=== PATIENT | female | born 1995 | race Caucasian/White ===

== ENCOUNTER 2019-11-12 20:45 | Emergency (ER) | payer SELFPAY ==
[2019-11-12 20:50] VITALS: BP 133/99; PULSE 102; RESP 18; TEMP 37.1; O2SAT 100
--- NOTE | 2019-11-12 21:53 | ED.HA ---
HPI - Headache General Chief Complaint: Headache Stated Complaint: headache, body aches, fatigue Time Seen by Provider: 11/12/19 21:33 History of Present Illness HPI Narrative: Headache and diffuse body aches since yesterday. Started after an intense workout. She tried ibuprofen, which improved the headache, but did not help with the aches. She was not able to sleep overnight due to discomfort. She reports decreased urine output, light in color. Related Data Allergies Allergy/AdvReac Type Severity Reaction Status Date / Time Sulfa (Sulfonamide Allergy Unknown HIVES Verified 10/11/18 11:05 Antibiotics) Review of Systems Review of Systems: All systems reviewed & are unremarkable except as noted in HPI and below Constitutional: Constitutional: Denies chills and Denies fever(s) ENT: Reports dizziness Cardiovascular: Cardiovascular: Denies chest pain Respiratory: Respiratory: Denies dyspnea Gastrointestinal: Gastrointestinal: Denies abdominal pain, Denies diarrhea and Denies vomiting Genitourinary: Genitourinary: Denies hematuria, Denies nocturia and Denies dysuria Musculoskeletal: Musculoskeletal: Reports myalgias Neurologic: Denies numbness PMFSH Past Medical History Medical History Endometriosis Strep pharyngitis UTI (urinary tract infection) Wrist fracture Surgical History Surgical History No history of previous surgery Social History Social History Smoking status: Current every day smoker Exam Const: General: healthy appearing, no acute distress and alert Orientation/consciousness: patient oriented x3 HENMT: Mouth: Yes dry mucous membranes Neck: Neck: normal visual inspection and no lymphadenopathy Resp: Effort & Inspection: normal respiratory effort Auscultation: clear to auscultation bilaterally, no rales, no rhonchi and no wheezes Cardio: Jugular venous distension: no JVD Rate: regular rate Rhythm: regular rhythm Heart sounds: no murmurs GI: Inspection: non-distended GI Palp: Yes Soft to palpation and No Tenderness to palpation present (GI) Skin: General skin exam: normal color Neuro: General: patient oriented x3, moves all extremities, no focal motor deficits and CN's II-XI intact bilaterally Speech: normal speech Gait exam (Neuro): Normal gait present Extrem: General: no edema Psych: Appearance: well kempt Affect: normal affect Course Vital Signs Vital signs: Vital Signs Temperature 37.1 C 11/12/19 20:50 Pulse Rate 102 H 11/12/19 20:50 Respiratory Rate 18 11/12/19 20:50 Blood Pressure 133/99 H 11/12/19 20:50 Pulse Oximetry 100 11/12/19 20:50 Temperature 37.0 C 11/12/19 23:33 Pulse Rate 84 11/12/19 23:33 Respiratory Rate 16 11/12/19 23:33 Blood Pressure 104/76 11/12/19 23:33 Pulse Oximetry 100 11/12/19 23:33 MDM - Headache MDM Narrative Medical decision making narrative: dehydration, rhabdomyolysis, viral illness labs may hint at mild dehydration. No rhabdo. Feeling moderately improved with treatment. Can't ruleout mild/early viral illness. Medical Records Attestation: I reviewed the patient's medical records. Lab Data Attestation: I reviewed the patient's lab results. Result diagrams: 11/12/19 22:02 11/12/19 22:01 Labs: Lab Results 11/12/19 11/12/19 Range/Units 22:01 22:02 WBC 9.0 (4.5-10.0) K/mm3 RBC 5.07 (4.2-5.4) M/mm3 Hgb 15.2 H (12.0-15.0) g/dL Hct 45.6 (37.0-47.0) % MCV 89.9 (80-100) fl MCH 30.0 (26-34) pg MCHC 33.3 (32-36) g/dl RDW 12.9 (11.5-14.5) % Plt Count 300 (150-375) k/mm3 MPV 11.0 H (7.4-10.4) fl Immature Gran % (Auto) 0.2 (0-0.5) % Neut % (Auto) 56.4 (45.5-73.1) % Lymph % (Auto) 31.8 (18.3-44.2) % Lander % (Auto) 6.8 (2.6-8.5) % Eos % (Auto) 4.
[2019-11-12] MEDS: SODIUM CHLORIDE 0.9% IV 1,000 ML 999 ML IV CONT (22:04)
[2019-11-12 22:08] LABS: Basophils Absolute Auto 0.1 K/mm3 (0.0-0.1); Basophils Percent Auto 0.7 % (0.2-1.2); Eosinophils Absolute Auto 0.4 K/mm3 (0-0.3); Eosinophils Percent Auto 4.1 % (0-4.4); Hematocrit 45.6 % (37.0-47.0); Hemoglobin 15.2 g/dL (12.0-15.0); Immature Granulocyte Absolute 0.02 K/mm3 (0.00-0.031); Immature Granulocyte Percent A 0.2 % (0-0.5); Lymphocytes Absolute Auto 2.86 K/mm3 (0.9-3.2); Lymphocytes Percent Auto 31.8 % (18.3-44.2); Mean Corpuscular HGB Conc 33.3 g/dl (32-36); Mean Corpuscular Volume 89.9 fl (80-100); Monocytes Absolute Auto 0.6 K/mm3 (0.1-0.6); Monocytes Percent Auto 6.8 % (2.6-8.5); Neutrophils Absolute Auto 5.1 K/mm3 (1.3-6.7); Neutrophils Percent Auto 56.4 % (45.5-73.1); Platelet Count Result 300 k/mm3 (150-375); Red Blood Count 5.07 M/mm3 (4.2-5.4); Red Cell Distribution Width 12.9 % (11.5-14.5)
[2019-11-12 22:23] LABS: Blood Urea Nitrogen 6 mg/dL (7-17); Calcium 9.3 mg/dL (8.4-10.2); Carbon Dioxide 28 mmol/L (22-30); Chloride 103 mmol/L (98-107); Creatine Kinase 87 U/L (30-135); Estimated Glomerular Filt Rate > 60; Glucose 98 mg/dL (65-105); Potassium 3.6 mmol/L (3.4-5.0); Sodium 138 mmol/L (137-145)
[2019-11-12 23:10] VITALS: BP 101/65
[2019-11-12] MEDS: KETOROLAC 30 MG/ML VIAL (*BKC) IV PUSH (23:10)
[2019-11-12 23:11] VITALS: BP 104/79; BP 105/73; PULSE 82; PULSE 88; RESP 16
[2019-11-12 23:33] VITALS: BP 104/76; PULSE 84; RESP 16; TEMP 37; O2SAT 100
== END 2019-11-12 23:34 | disposition home or self-care (01) ==
PROVIDERS: Emergency Provider Emergency Medicine
DX: R51 Headache (principal); M79.10 Myalgia, unspecified site; N80.9 Endometriosis, unspecified; Z87.440 Personal history of urinary (tract) infections
CPT/HCPCS: 36415; 80048; 82550; 85025; 96361; 96365; 96375; 99284; J0131; J1885; J7030

== ENCOUNTER 2019-12-27 10:23 | Emergency (ER) | payer SELFPAY ==
[2019-12-27 10:34] VITALS: BP 116/69; PULSE 87; RESP 16; TEMP 36.9; O2SAT 99
--- NOTE | 2019-12-27 10:45 | ED.URI ---
HPI - URI/Sore Throat General Chief Complaint: Upper Respiratory Infection Stated Complaint: Sore Throat Time Seen by Provider: 12/27/19 10:45 Source: patient and RN notes reviewed Mode of arrival: ambulatory Limitations: no limitations History of Present Illness HPI Narrative: 24-year-old female presents with concern for sore throat. Reports symptoms started yesterday. She denies other symptoms such as headache, nausea, fever, body aches, chills, sweats, nasal congestion, rhinorrhea. Denies any intervention for her pain. MD elicited complaint: sore throat Related Data Allergies Allergy/AdvReac Type Severity Reaction Status Date / Time Sulfa (Sulfonamide Allergy Unknown HIVES Verified 12/27/19 10:40 Antibiotics) Review of Systems Review of Systems: Narrative: CONSTITUTIONAL: Denies malaise, chills, sweats, or fever. EYES: Denies visual changes, redness, or discharge. ENT: Denies rhinorrhea, congestion, sinus pain, otalgia. Reports sore throat. CARDIOVASCULAR: Denies chest pain, palpitations, or edema. RESPIRATORY: Denies cough or dyspnea. GASTROINTESTINAL: Denies abdominal pain, nausea, vomiting, diarrhea SKIN: Denies rash or itching. MUSCULOSKELETAL: Denies myalgia. NEUROLOGIC: Denies headache. All systems reviewed & are unremarkable except as noted in HPI and below PMFSH Social History Social History Smoking status: Current every day smoker Gender identity (if verbalized by the patient): Female Comments At time of signature, agree with nursing past medical, surgical, social and family history. There is no relevant family history pertinent to the presenting complaint Exam Narrative: Exam Narrative: GENERAL: Well-appearing, well-nourished, and in no acute distress. HEAD: Normocephalic EYES: PERRLA, conjunctivae clear ENT: Nares clear, turbinates pink, no discharge. Mucous membranes moist. TM pearly sanabria with sharp light reflex bilaterally; no tragal tenderness. Oropharynx slightly erythematous without lesions. Tonsils slightly enlarged and with white exudate on the right side, no drooling, no hoarseness, no trismus, uvula midline. NECK: Supple. No lymphadenopathy CHEST: Clear to auscultation, breath sounds equal. No wheezing, rhonchi, rales, or stridor. No respiratory distress, speaks in full sentences. HEART: Regular rate and rhythm. No murmur heard. SKIN: Warm, dry, no rash. NEURO: Alert and oriented x3. PSYCH: Normal mood and affect Course Course Emergency Course: Patient is aware of diagnosis, understands and agrees to treatment plan. Anticipatory guidance given. Patient agrees to follow-up as directed and is aware of reasons to seek care at the emergency department. Portions of this record may have been created with voice recognition software Vital Signs Vital signs: Vital Signs Temperature 98.4 F 12/27/19 10:34 Pulse Rate 87 12/27/19 10:34 Respiratory Rate 16 12/27/19 10:34 Blood Pressure 116/69 12/27/19 10:34 Pulse Oximetry 99 12/27/19 10:34 Temperature 98.4 F 12/27/19 10:34 Pulse Rate 87 12/27/19 10:34 Respiratory Rate 16 12/27/19 10:34 Blood Pressure 116/69 12/27/19 10:34 Pulse Oximetry 99 12/27/19 10:34 Reviewed. MDM - URI/Sore Throat MDM Narrative Medical decision making narrative: Differential diagnosis considered: Norman virus, strep pharyngitis, allergic rhinitis, upper respiratory tract infection, sinusitis, rhinosinusitis, nasopharyngitis. viral pharyngitis, otitis media, otitis externa, pneumonia, bronchitis, viral cough syndrome, viral syndrome, and influenza. Exam findings show no acute concerns or changes; patient is non-toxic appearing and is in no distress. Patient is appropriate for outpatient treatment and follow-up. Lab Data Attestation: I reviewed the patient's lab results. Labs: Strep Screen Presumptive Negative *(Reference Range: Negative)* Critical Ca
== END 2019-12-27 11:02 | disposition home or self-care (01) ==
PROVIDERS: Emergency Provider Nurse Practitioner
DX: J02.9 Acute pharyngitis, unspecified (principal); Z20.828 Contact with and (suspected) exposure to other viral communicable diseases; F17.200 Nicotine dependence, unspecified, uncomplicated
CPT/HCPCS: 87081; 87880; 99213; G0463

== ENCOUNTER 2020-02-16 18:24 | Emergency (ER) | payer SELFPAY ==
--- NOTE | ~2020-02-16 | XR_ITS ---
EXAMINATION: XR knee RT 3V EXAM DATE: 02/16/2020 18:51 INDICATION: No known injury, proximal posterior right knee pain, congenital patellar issue. TECHNIQUE: Right knee frontal, crosstable lateral, orthogonal oblique projections for interpretation . There is no prior study for comparison. FINDINGS: No evidence osteochondral defect or joint body in the right knee joint. No joint effusion . There are no acute fractures or dislocations identified. There is no subcutaneous gas. The soft t issue is unremarkable. There are no radiopaque foreign bodies. IMPRESSION: 1. Unremarkable right knee exam. Reviewed, dictated and finalized at location A.
[2020-02-16 18:33] VITALS: BP 122/81; PULSE 84; RESP 16; TEMP 37.4; O2SAT 99
--- NOTE | 2020-02-16 18:36 | ED.EXTPRO ---
HPI - Extremity Problem General Chief complaint: Extremity Injury, Lower Stated complaint: right knee painful/swollen Time Seen by Provider: 02/16/20 18:36 History of Present Illness HPI Narrative: Patient here with right knee pain and swelling. No deformity no edema patient states it hurts when she ambulates on her knee.patient has chronic knee problems no injury. patient has been using a brace for comfort. 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 Complaint: extremity pain and extremity swelling Related Data Home Medications Medication Instructions Recorded Confirmed No Home Medications 02/16/20 02/16/20 Allergies Allergy/AdvReac Type Severity Reaction Status Date / Time Sulfa (Sulfonamide Allergy Unknown HIVES Verified 12/27/19 10:40 Antibiotics) Review of Systems Review of Systems: Narrative: CONSTITUTIONAL: Denies fever, chills, or sweats. EYES: Denies visual changes, redness, or discharge. ENT: Denies rhinorrhea, congestion, sore throat, or otalgia. CARDIOVASCULAR: Denies chest pain, palpitations, or edema. RESPIRATORY: Denies cough or dyspnea. GASTROINTESTINAL: Denies abdominal pain, nausea, vomiting, or diarrhea. GENITOURINARY: Denies dysuria or hematuria. SKIN: Denies rash or itching. MUSCULOSKELETAL: Denies back pain, joint pain, or myalgia. NEUROLOGIC: Denies headache, numbness, or weakness. PSYCHIATRIC: Denies anxiety or depression. [facility] Past Medical History Medical History (Updated 02/16/20 @ 18:41 by MERRILL Ibarra) Endometriosis Strep pharyngitis UTI (urinary tract infection) Wrist fracture Surgical History Surgical History No history of previous surgery Social History Social History Smoking status: Current every day smoker Gender identity (if verbalized by the patient): Female Comments At time of signature, agree with nursing past medical, surgical, social and family history. There is no relevant family history pertinent to the presenting complaint Exam Narrative: Exam Narrative: GENERAL: Well-appearing, well-nourished, and in no acute distress. HEAD: Normocephalic, atraumatic. EYES: PERRLA and EOMI. ENT: Nares clear, no rhinorrhea or epistaxis. Mucous membranes moist. NECK: Supple. CHEST: Clear to auscultation. No respiratory distress. HEART: Regular rate and rhythm. No murmur heard. Normal peripheral pulses. ABDOMEN: Soft, nontender, nondistended, normal active bowel sounds. EXTREMITIES: Normal range of motion. No edema. SKIN INTACT. NO DEFORMITY. NORMAL ROM, HAS FULL EXTENSION AND FLEXION. COMPARTMENTS SOFT. NEGATIVE ANTERIOR, POSTERIOR DRAWER SIGNS ON TEST. NO CREPITUS. DP PULSE, NORMAL CAPILLARY REFILL MCMURRAYS, PAIN TO RIGHT MEDIAL AND DISTAL KNEE WITH KNEE FLEXION, INTERNAL AND EXTERNAL FOOT ROTATION.NO ERYTHEMA OR INCREASED WARMTH TO CALF. . SKIN: Warm, dry, no rash. NEURO: No focal deficits. Alert and oriented x3. [place] Coma Scale Eye Opening: Spontaneous 4 [place] Coma Scale Motor: Obeys Commands 6 Lopez Coma Scale Verbal: Oriented 5 [place] Coma Scale Total 15 Course Vital Signs Vital signs: Vital Signs Temperature 37.4 C 02/16/20 18:33 Pulse Rate 84 02/16/20 18:33 Respiratory Rate 16 02/16/20 18:33 Blood Pressure 122/81 02/16/20 18:33 Pulse Oximetry 99 02/16/20 18:33 Temperature 37.4 C 02/16/20 18:33 Pulse Rate 84 02/16/20 18:33 Respiratory Rate 16 02/16/20 18:33 Blood Pressure 122/81 02/16/20 18:33 Pulse Oximetry 99 02/16/20 18:33 DISCUSSED WITH PATIENT, X-RAY FINDINGS AND THAT X-RAYS WERE NEGATIVE FOR FRACTURE OR DISLOCATIONS. X-RAYS CANNOT RULE OUT TENDON, LIGAMENT, OR SOFT TISSUE STRUCTURE INJURIES AND IF SYMPTOMS PERSIST OR WORSEN, FURTHER OCTAVIANO
== END 2020-02-16 19:17 | disposition home or self-care (01) ==
PROVIDERS: Emergency Provider Nurse Practitioner Family
DX: S86.811A Strain of other muscle(s) and tendon(s) at lower leg level, right leg, initial encounter (principal); S83.91XA Sprain of unspecified site of right knee, initial encounter; X58.XXXA Exposure to other specified factors, initial encounter; N80.9 Endometriosis, unspecified; F17.200 Nicotine dependence, unspecified, uncomplicated
CPT/HCPCS: 73562; 99213; G0463

== ENCOUNTER 2020-10-18 15:35 | Emergency (ER) | payer OTHER, SELFPAY ==
[2020-10-18 15:43] VITALS: BP 118/70; PULSE 99; RESP 18; TEMP 37.2; O2SAT 100
--- NOTE | 2020-10-18 15:46 | ED.SKABFB ---
HPI - Skin/Abscess/Foreign Bdy General Chief complaint: Skin/Abscess/Foreign Body Stated complaint: Possible Boil on her Vagina Time Seen by Provider: 10/18/20 15:46 Source: patient Mode of arrival: ambulatory Limitations: no limitations History of Present Illness HPI narrative: patient presents with an abscess in her groin. patient states she shaves her labia area and noticed a tender hardened area one week ago. no drainage very tender to touch. patient states she shaves her carter area and thinks she may have cut herself causeing an abscess. MD complaint: abscess/boil Onset (ago): week(s) (one) Tetanus up to date: yes Severity: mild Related Data Home Medications Medication Instructions Recorded Confirmed sertraline 50 mg PO DAILY 10/18/20 10/18/20 trazodone 100 mg PO DAILY 10/18/20 10/18/20 Allergies Allergy/AdvReac Type Severity Reaction Status Date / Time Sulfa (Sulfonamide Allergy Unknown HIVES Verified 12/27/19 10:40 Antibiotics) Review of Systems Review of Systems: Narrative: CONSTITUTIONAL: Denies fever, chills, or sweats. EYES: Denies visual changes, redness, or discharge. ENT: Denies rhinorrhea, congestion, sore throat, or otalgia. CARDIOVASCULAR: Denies chest pain, palpitations, or edema. RESPIRATORY: Denies cough or dyspnea. GASTROINTESTINAL: Denies abdominal pain, nausea, vomiting, or diarrhea. GENITOURINARY: Denies dysuria or hematuria. SKIN: Denies rash or itching.tender area to left groin MUSCULOSKELETAL: Denies back pain, joint pain, or myalgia. NEUROLOGIC: Denies headache, numbness, or weakness. PSYCHIATRIC: Denies anxiety or depression. [facility] Past Medical History Medical History Endometriosis Strep pharyngitis UTI (urinary tract infection) Wrist fracture Surgical History Surgical History No history of previous surgery Social History Social History Smoking status: Current every day smoker Gender identity (if verbalized by the patient): Female Comments At time of signature, agree with nursing past medical, surgical, social and family history. There is no relevant family history pertinent to the presenting complaint Exam Narrative: Exam Narrative: GENERAL: Well-appearing, well-nourished, and in no acute distress. HEAD: Normocephalic, atraumatic. EYES: PERRLA and EOMI. ENT: Nares clear, no rhinorrhea or epistaxis. Mucous membranes moist. NECK: Supple. CHEST: Clear to auscultation. No respiratory distress. HEART: Regular rate and rhythm. No murmur heard. Normal peripheral pulses. ABDOMEN: Soft, nontender, nondistended, normal active bowel sounds. EXTREMITIES: Normal range of motion. No edema. SKIN: Warm, dry, no rash. NEURO: No focal deficits. Alert and oriented x3. [place] Coma Scale Eye Opening: Spontaneous 4 [place] Coma Scale Motor: Obeys Commands 6 [place] Coma Scale Verbal: Oriented 5 [place] Coma Scale Total 15 Skin: Other: 3cm by 3cm firm tender area to right groin/labia not fluctuant no induration no indication for I&D Course Vital Signs Vital signs: Vital Signs Temperature 37.2 C 10/18/20 15:43 Pulse Rate 99 10/18/20 15:43 Respiratory Rate 18 10/18/20 15:43 Blood Pressure 118/70 10/18/20 15:43 Pulse Oximetry 100 10/18/20 15:43 Temperature 37.2 C 10/18/20 15:43 Pulse Rate 99 10/18/20 15:43 Respiratory Rate 18 10/18/20 15:43 Blood Pressure 118/70 10/18/20 15:43 Pulse Oximetry 100 10/18/20 15:43 Critical dx considered and discussed with pt. Educated patient on red flag s/s and to go to ED if s/s occur. Discussed with pt when to return to [facility] or primary care provider. Pt gave verbal undertstanding, all questions were answered, and pt was agreeable to plan MDM - Skin/Abscess/Foreign Bdy Differential Diagnosis Differential diagnosis: Likely abscess o
== END 2020-10-18 16:06 | disposition home or self-care (01) ==
PROVIDERS: Emergency Provider Nurse Practitioner Family; PCP Nurse Practitioner Family
DX: L02.214 Cutaneous abscess of groin (principal); N80.9 Endometriosis, unspecified; F17.200 Nicotine dependence, unspecified, uncomplicated
CPT/HCPCS: 99213; G0463

== ENCOUNTER 2020-10-20 11:10 | Emergency (ER) | payer OTHER, SELFPAY ==
[2020-10-20 11:29] VITALS: BP 120/74; PULSE 100; RESP 18; TEMP 36.6; O2SAT 99
--- NOTE | 2020-10-20 11:53 | ED.SKABFB ---
HPI - Skin/Abscess/Foreign Bdy General Chief complaint: Skin/Abscess/Foreign Body Stated complaint: boil on vagina Time Seen by Provider: 10/20/20 11:46 Source: patient, RN notes reviewed and old records reviewed Mode of arrival: ambulatory Limitations: no limitations History of Present Illness HPI narrative: Patient presents today complaining of a labial abscess. [facility] where she was given a prescription for cephalexin and mupirocin ointment. The note states that the area was not ready to be lanced at that time, and patient was sent home. Patient states the area has grown quite a bit, now has a head. States now she is having difficulty walking or sitting due to severe pain. She has been taking Tylenol without relief and currently rates her pain 10/10. Denies history of abscesses, boils, staph infections. MD complaint: abscess/boil Related Data Home Medications Medication Instructions Recorded Confirmed sertraline 50 mg PO DAILY 10/18/20 10/20/20 trazodone 100 mg PO DAILY 10/18/20 10/20/20 Allergies Allergy/AdvReac Type Severity Reaction Status Date / Time Sulfa (Sulfonamide Allergy Unknown HIVES Verified 10/20/20 11:26 Antibiotics) Review of Systems Review of Systems: Narrative: CONSTITUTIONAL: Denies body aches, fever, chills, or sweats. EYES: Denies visual changes, redness, or discharge. ENT: Denies rhinorrhea, congestion, sore throat, or otalgia. CARDIOVASCULAR: Denies chest pain, palpitations, or edema. RESPIRATORY: Denies cough or dyspnea. GASTROINTESTINAL: Denies abdominal pain, nausea, vomiting, or diarrhea. GENITOURINARY: Denies dysuria or hematuria. SKIN: Denies rash, itching, or wounds. Left labial abscess MUSCULOSKELETAL: Denies back pain, joint pain, or myalgia. NEUROLOGIC: Denies headache, numbness, tingling, or weakness. PSYCH: Denies depression or anxiety. [facility] Past Medical History Medical History Endometriosis Strep pharyngitis UTI (urinary tract infection) Wrist fracture Surgical History Surgical History No history of previous surgery Social History Social History Smoking status: Current every day smoker Gender identity (if verbalized by the patient): Female Comments At time of signature, I have reviewed and agree with nursing past medical, surgical, social and family history unless otherwise noted. Please see nursing chart for further information. There is no relevant family history pertinent to the presenting complaint Exam Narrative: Exam Narrative: GENERAL: Well-appearing, well-nourished, and in no acute distress. HEAD: Normocephalic, atraumatic. EYES: EOMI. No redness or drainage. Conjunctivae normal. ENT: Mucous membranes pink and moist. NECK: Normal AROM. CHEST: No respiratory distress. : 4x3cm erythematous fluctuance abscess to the left inner labia. Tenderness to palpation. EXTREMITIES: Normal range of motion. No edema. SKIN: Warm, dry, no rash. Capillary refill normal. Normal skin turgor. NEURO: No focal deficits. Alert and oriented x3. Gait steady. PSYCH: Normal affect. No signs of depression or anxiety. Course Vital Signs Vital signs: Vital Signs Temperature 97.8 F 10/20/20 11:29 Pulse Rate 100 10/20/20 11:29 Respiratory Rate 18 10/20/20 11:29 Blood Pressure 120/74 10/20/20 11:29 Pulse Oximetry 99 10/20/20 11:29 Temperature 97.8 F 10/20/20 11:29 Pulse Rate 100 10/20/20 11:29 Respiratory Rate 18 10/20/20 11:29 Blood Pressure 120/74 10/20/20 11:29 Pulse Oximetry 99 10/20/20 11:29 Reviewed Procedures Abscess I/D bartholin's gland: Date of Incision: 10/20/20 Time of Incision: 11:57 Side (if applicable): left Local Anesthetic: lidocaine 2%
== END 2020-10-20 12:35 | disposition home or self-care (01) ==
PROVIDERS: Emergency Provider Nurse Practitioner
DX: N75.1 Abscess of Bartholin's gland (principal); N80.9 Endometriosis, unspecified; F17.200 Nicotine dependence, unspecified, uncomplicated
CPT/HCPCS: 56420; 99212; G0463

== ENCOUNTER 2021-03-02 10:12 | Emergency (ER) | payer OTHER, SELFPAY ==
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
[2021-03-02 10:25] VITALS: BP 117/97; PULSE 117; RESP 20; TEMP 36.6; O2SAT 98
== END 2021-03-02 11:15 | disposition home or self-care (01) ==
PROVIDERS: Emergency Provider Nurse Practitioner Family
DX: M25.552 Pain in left hip (principal); F17.200 Nicotine dependence, unspecified, uncomplicated; N80.9 Endometriosis, unspecified
CPT/HCPCS: 99213; G0463

== ENCOUNTER 2021-12-24 09:06 | Emergency (ER) | payer OTHER, SELFPAY ==
--- NOTE | ~2021-12-24 | US_ITS ---
EXAMINATION: US pelvic complete DATE: 12/24/2021 10:43 INDICATION: Abdominal pain. TECHNIQUE: Multiple transabdominal sonographic images of the pelvis were obtained. COMPARISON: CT abdomen and pelvis 09/15/2018 FINDINGS: The uterus measures 8.5 x 2.8 x 4.9 cm. There is no free fluid in the pelvis. The endometrial complex measures 13 mm in thickness. The right ovary measures 3.6 x 2.2 x 2.7 cm. The left ovary measures 4. 2 x 1.6 x 2.6 cm. There is normal vascular flow in the ovaries. IMPRESSION: 1. Normal pelvis. Reviewed, dictated and finalized at location A. IMPRESSION: 1. Normal pelvis.
[2021-12-24 09:08] VITALS: BP 116/74; PULSE 82; RESP 16; TEMP 37.2; O2SAT 100
--- NOTE | 2021-12-24 09:38 | ED.ABDPAIN ---
HPI - Abdominal Pain General Chief Complaint: Abdominal Pain Stated Complaint: with recent ectopic Time Seen by Provider: 12/24/21 09:15 History of Present Illness HPI narrative: 26-year-old female who is and a recent history of ectopic who presents to the emergency room for evaluation of right lower quadrant pain began yesterday. Patient denies any nausea vomiting diarrhea, denies any vaginal pain or dysuria. Patient states that her last menstrual period was approximately 8 weeks ago. Related Data Home Medications Medication Instructions Recorded Confirmed trazodone 50 mg tablet 100 mg PO DAILY 10/18/20 03/02/21 prazosin 1 mg capsule 1 mg PO HS 03/02/21 03/02/21 hydroxyzine pamoate 25 mg capsule 25 mg DAILY PRN Anxiety 12/24/21 venlafaxine 75 mg capsule,extended 75 mg PO DAILY 12/24/21 release 24 hr Allergies Allergy/AdvReac Type Severity Reaction Status Date / Time Sulfa (Sulfonamide Allergy Unknown HIVES Verified 10/20/20 11:26 Antibiotics) Review of Systems Review of Systems: CONSTITUTIONAL: Denies fever, chills, or sweats. EYES: Denies visual changes, redness, or discharge. ENT: Denies rhinorrhea, congestion, sore throat, or otalgia. CARDIOVASCULAR: Denies chest pain, palpitations, or edema. RESPIRATORY: Denies cough or dyspnea. GASTROINTESTINAL: Reports right lower quadrant pain GENITOURINARY: Denies dysuria or hematuria. SKIN: Denies rash or itching. MUSCULOSKELETAL: Denies back pain, joint pain, or myalgia. NEUROLOGIC: Denies headache, numbness, dizziness, or weakness. PSYCHIATRIC: Denies anxiety or depression. [facility] Past Medical History Medical History (Updated 12/24/21 @ 11:30 by Gerson Romeo APRN) Endometriosis Strep pharyngitis UTI (urinary tract infection) Wrist fracture Surgical History Surgical History No history of previous surgery Social History Social History Smoking status: Current every day smoker Gender identity (if verbalized by the patient): Female Exam Narrative: GENERAL: Well-appearing, well-nourished, no physical limitations, and in no acute distress. HEAD: Normocephalic, atraumatic. EYES: Conjunctivae normal, PERRLA and EOMI. CHEST: Clear to auscultation. No respiratory distress. No wheezes rales or rhonchi. No tenderness. HEART: Regular rate and rhythm. No murmur heard. Normal peripheral pulses. ABDOMEN: Soft, RLQ tenderness, nondistended, normal active bowel sounds. : BACK: No CVA tenderness EXTREMITIES: Normal range of motion. No edema. No clubbing or cyanosis SKIN: Warm, dry, no rash. No noted wounds NEURO: No focal deficits. Alert and oriented x3. MAEW. CN's II-XI intact bilaterally, normal gait PSYCH: Cooperative. Normal mood and affect. Course Vital Signs Vital signs: Vital Signs Temperature 37.2 C 12/24/21 09:08 Pulse Rate 82 12/24/21 09:08 Respiratory Rate 16 12/24/21 09:08 Blood Pressure 116/74 12/24/21 09:08 Pulse Oximetry 100 12/24/21 09:08 Oxygen Delivery Room Air 12/24/21 09:08 Temperature 37.2 C 12/24/21 09:08 Pulse Rate 82 12/24/21 09:08 Respiratory Rate 16 12/24/21 09:08 Blood Pressure 116/74 12/24/21 09:08 Pulse Oximetry 100 12/24/21 09:08 Oxygen Delivery Room Air 12/24/21 09:08 MDM - Abdominal Pain MDM Narrative Medical decision making narrative: 26-year-old female presented the emergency room with right lower quadrant pelvic/abdominal pain. Patient stated that she is 8 weeks . Beta-hCG shows a level 663, which is not consistent with 8 weeks . Pelvic ultrasound showed no pole. Discussed case with Dr. Calle, he recommends of follow-up beta hCG level in 2 days and to be seen in his office. Lab Data Result diagrams: 12/24/21 09:41 12/24/21 09:41 Labs: Lab Results 12/24/21
[2021-12-24 09:54] LABS: Basophils Absolute Auto 0.1 K/mm3 (0.0-0.1); Basophils Percent Auto 0.6 % (0.2-1.2); Eosinophils Absolute Auto 0.2 K/mm3 (0-0.3); Eosinophils Percent Auto 2.9 % (0-4.4); Hematocrit 37.8 % (37.0-47.0); Hemoglobin 12.3 g/dL (12.0-15.0); Immature Granulocyte Absolute 0.03 K/mm3 (0.00-0.031); Immature Granulocyte Percent A 0.4 % (0-0.5); Lymphocytes Absolute Auto 2.15 K/mm3 (0.9-3.2); Lymphocytes Percent Auto 26.3 % (18.3-44.2); Mean Corpuscular HGB Conc 32.5 g/dl (32-36); Mean Corpuscular Hemoglobin 27.2 pg (26-34); Mean Corpuscular Volume 83.4 fl (80-100); Mean Platelet Volume 10.6 fl (7.4-10.4); Monocytes Absolute Auto 0.7 K/mm3 (0.1-0.6); Neutrophils Absolute Auto 5.1 K/mm3 (1.3-6.7); Neutrophils Percent Auto 61.8 % (45.5-73.1); Platelet Count Result 320 k/mm3 (150-375); Red Blood Count 4.53 M/mm3 (4.2-5.4); Red Cell Distribution Width 16.2 % (11.5-14.5); White Blood Count 8.2 K/mm3 (4.5-10.0)
[2021-12-24 09:57] LABS: Appearance Urine Clear (Clear); Bilirubin Urine Negative (Negative); Blood Urine Negative (Negative); Color Urine Yellow (Yellow); Glucose Urine UA Negative (Negative); Ketones Urine Negative (Negative); Leukocyte Esterase Ur Trace LEU/UL (Negative); Nitrate Urine Negative (Negative); Protein Urine Negative (Negative); Specific Grav Ur 1.015 (1.001-1.035); Urobilinogen Urine 0.2 mg/dL (<2.0)
[2021-12-24 10:05] LABS: Alanine Aminotransferase 11 U/L (6-35); Albumin Level 4.1 g/dL (3.5-5.1); Alkaline Phosphatase 67 U/L (38-126); Anion Gap 9 mmol/L (8-16); Aspartate Amino Transferase 22 U/L (14-36); Bilirubin,Total 0.4 mg/dL (0.2-1.3); Blood Urea Nitrogen 8 mg/dL (7-17); Calcium 9.1 mg/dL (8.4-10.2); Carbon Dioxide 24 mmol/L (22-30); Chloride 104 mmol/L (98-107); Estimated CRCL calculation 86 ml/min; Estimated Glomerular Filt Rate > 60; Glucose 90 mg/dL (65-110); Lipase 41 U/L (23-300); Potassium 3.6 mmol/L (3.4-5.0); Sodium 137 mmol/L (137-145)
[2021-12-24 10:08] LABS: Bacteria Urine 2+ /hpf; RBC Urine 0-2 /hpf (0-2); Squamous Epithelial Cell Urine Moderate /hpf (Few)
[2021-12-24 10:09] LABS: Add Urine Microscopic? YES
[2021-12-24 10:21] LABS: Beta HCG Quantitative 663.85 mIU/ML
[2021-12-24 11:56] VITALS: BP 104/66; PULSE 80; RESP 16; O2SAT 98
== END 2021-12-24 11:59 | disposition home or self-care (01) ==
PROVIDERS: Emergency Provider Nurse Practitioner Family
DX: N39.0 Urinary tract infection, site not specified (principal); R10.9 Unspecified abdominal pain
CPT/HCPCS: 36415; 76856; 80053; 81001; 83690; 84702; 85025; 99284

== ENCOUNTER 2021-12-26 09:19 | Outpatient (CLI) | payer OTHER, SELFPAY | END 2021-12-26 09:20 | disposition home or self-care (01) | PROVIDERS: Visit Provider Obstetrics & Gynecology | DX: O20.0 Threatened abortion (principal); Z3A.00 Weeks of gestation of pregnancy not specified | CPT/HCPCS: 36415; 84702 ==

== ENCOUNTER 2022-01-06 18:44 | Emergency (ER) | payer OTHER, SELFPAY ==
[2022-01-06] VITALS (12 sets, daily range): BP systolic 104–123; BP diastolic 69–76; PULSE 70–89; RESP 15–17; TEMP 36.8; O2SAT 98–100
--- NOTE | ~2022-01-06 | US_ITS ---
EXAMINATION: US OB <=14 wk fetus w TV DATE: 01/06/2022 21:39 INDICATION: Right ovarian cyst. Assess for ovarian torsion during first trimester . TECHNIQUE: Real-time pelvic ultrasound utilizing both a transvaginal and transabdominal probe was pe rformed. The interpreting radiologist was not present for the study. COMPARISON: None. FINDINGS: The uterus measures 9.2 x 4.6 x 3.6 cm. There is an intrauterine gestational sac. A yolk sac and fet al pole are identified. The crown rump length measures 2-3 mm, which correlates with an estimated ges tational age of 5 weeks and 6 days. heart motion is identified measuring 136 beats per minute ( bpm) by M-mode Doppler. The right ovary measures 2.3 x 2.4 x 2.2 cm. 1.7 cm anechoic cyst/follicle in the right ovary. Vascul ar flow with arterial waveforms in the right ovary with color Doppler. The left ovary is not visualiz ed. There is no free fluid in the pelvis. IMPRESSION: 1. Single living fetus with heart rate of 136 bpm. 2. Gestational age by ultrasound of 5 weeks 6 day(s) +/- 4 day(s) with ultrasound estimated date of delivery ([facility]) of 09/02/2022. 3. 1.7 cm anechoic cyst/follicle in the otherwise normal right ovary with arterial waveforms identifi ed in the right ovary with color Doppler. Reviewed, dictated and finalized at location A. IMPRESSION: 1. Single living fetus with heart rate of 136 bpm. 2. Gestational age by ultrasound of 5 weeks 6 day(s) +/- 4 day(s) with ultraso und estimated date of delivery ([facility]) of 09/02/2022. 3. 1.7 cm anechoic cyst/follicle in the otherwise normal right ovary with arter ial waveforms identified in the right ovary with color Doppler.
--- NOTE | 2022-01-06 20:24 | ED.GENADULT ---
HPI - General Adult General Chief complaint: Abdominal Pain Stated complaint: 6 weeks , right side pain, no bleeding Time Seen by Provider: 01/06/22 20:12 History of Present Illness HPI narrative: 26-year-old female that is approximately 6 weeks presented to the emergency department for evaluation of worsening right-sided abdominal pain. Patient is G2, P0. Patient does have a prior history of ectopic . Patient also has a history of endometriosis and was recently diagnosed with a right ovarian cyst. Patient states that 2 weeks ago she was diagnosed with a cyst and since then her pain had improved. Patient states she had acutely worsening right-sided abdominal pain. Patient denies any associated vaginal bleeding. Related Data Home Medications Medication Instructions Recorded Confirmed trazodone 50 mg tablet 100 mg PO DAILY 10/18/20 03/02/21 prazosin 1 mg capsule 1 mg PO HS 03/02/21 03/02/21 hydroxyzine pamoate 25 mg capsule 25 mg DAILY PRN Anxiety 12/24/21 venlafaxine 75 mg capsule,extended 75 mg PO DAILY 12/24/21 release 24 hr Allergies Allergy/AdvReac Type Severity Reaction Status Date / Time Sulfa (Sulfonamide Allergy Unknown HIVES Verified 01/06/22 20:26 Antibiotics) Review of Systems Review of Systems: CONSTITUTIONAL: Denies fever, chills, or sweats. EYES: Denies visual changes, redness, or discharge. ENT: Denies rhinorrhea, congestion, sore throat, or otalgia. CARDIOVASCULAR: Denies chest pain, palpitations, or edema. RESPIRATORY: Denies cough or dyspnea. GASTROINTESTINAL: See HPI GENITOURINARY: Denies dysuria or hematuria. SKIN: Denies rash or itching. MUSCULOSKELETAL: Denies back pain, joint pain, or myalgia. NEUROLOGIC: Denies headache, numbness, or weakness. [facility] Past Medical History Medical History (Updated 01/07/22 @ 00:00 by Background Dafrnacaon) Endometriosis Strep pharyngitis UTI (urinary tract infection) Wrist fracture Surgical History Surgical History No history of previous surgery Social History Social History Smoking status: Current every day smoker Gender identity (if verbalized by the patient): Female Exam Narrative: APPEARANCE: Well appearing, no pain, no distress, well-nourished. HEAD: normocephalic, atraumatic. EYES: PERRLA/EOMI, conjunctivae clear. NOSE: Normal no drainage THROAT: Pharynx clear, no exudate. NECK: Supple. No adenopathy, no masses. RESPIRATORY: Airway patent, respirations nonlabored. Clear to auscultation bilaterally, no rales, rhonchi, wheezing. CARDIOVASCULAR: Regular rate and rhythm without murmurs rubs or gallops. ABDOMINAL: Soft, nontender, nondistended, normal bowel sounds. Tenderness and right upper and right lower quadrant. Patient has pain in this region but states that pain is not significantly altered with palpation. MUSCULOSKELETAL: Moves all extremities. Strength/ROM intact, No edema, No calf tenderness. NEURO: Alert. Cranial nerves II through XII intact. Grossly intact SKIN: Warm, dry. Normal Color Course Course Emergency Course: Ultrasound did show a right-sided ovarian cyst and confirmed the intrauterine Patient was updated on the results for ultrasound. Patient did have a minor leukocytosis of 13.8 but is afebrile. CMP is within normal limits. Patient did have cloudy urine with some white blood cells. Urine culture is pending. Patient does have follow-up with Dr. Calle. Vital Signs Vital signs: Vital Signs Temperature 98.2 F 01/06/22 18:50 Pulse Rate 89 01/06/22 18:50 Respiratory Rate 15 01/06/22 18:50 Blood Pressure 113/69 01/06/22 18:50 Pulse Oximetry 100 01/06/22 18:50 Oxygen Delivery Room Air 01/06/22 18:50 Temperature 98.2 F 01/06/22 18:50 Pulse Rate 70 01/06/22 23:51 Respiratory Rate 16 01/06/22 23:51 Blood Pressure 104/74 01/06/22
[2022-01-06] MEDS: SODIUM CHLORIDE 0.9% IV 1,000 ML 999 ML IV CONT (20:29)
[2022-01-06 20:33] LABS: Basophils Absolute Auto 0.1 K/mm3 (0.0-0.1); Basophils Percent Auto 0.7 % (0.2-1.2); Eosinophils Absolute Auto 0.5 K/mm3 (0-0.3); Eosinophils Percent Auto 3.9 % (0-4.4); Hematocrit 36.8 % (37.0-47.0); Hemoglobin 12.3 g/dL (12.0-15.0); Immature Granulocyte Absolute 0.05 K/mm3 (0.00-0.031); Immature Granulocyte Percent A 0.4 % (0-0.5); Lymphocytes Absolute Auto 3.92 K/mm3 (0.9-3.2); Lymphocytes Percent Auto 28.5 % (18.3-44.2); Mean Corpuscular HGB Conc 33.4 g/dl (32-36); Mean Corpuscular Hemoglobin 28.3 pg (26-34); Mean Corpuscular Volume 84.6 fl (80-100); Mean Platelet Volume 10.3 fl (7.4-10.4); Monocytes Percent Auto 7.1 % (2.6-8.5); Neutrophils Absolute Auto 8.2 K/mm3 (1.3-6.7); Neutrophils Percent Auto 59.4 % (45.5-73.1); Platelet Count Result 329 k/mm3 (150-375); Red Blood Count 4.35 M/mm3 (4.2-5.4); Red Cell Distribution Width 15.6 % (11.5-14.5); White Blood Count 13.8 K/mm3 (4.5-10.0)
[2022-01-06 20:34] LABS: Add Urine Microscopic? YES; Appearance Urine Cloudy (Clear); Bilirubin Urine Negative (Negative); Blood Urine Negative (Negative); Color Urine Light Yellow (Yellow); Glucose Urine UA Negative (Negative); Ketones Urine Negative (Negative); Leukocyte Esterase Ur Negative LEU/UL (Negative); Nitrate Urine Negative (Negative); Protein Urine Negative (Negative); Specific Grav Ur 1.015 (1.001-1.035); Urobilinogen Urine 0.2 mg/dL (<2.0)
[2022-01-06 20:41] LABS: Bacteria Urine Trace /hpf; Mucus Urine Rare /lpf; RBC Urine 0-2 /hpf (0-2); Squamous Epithelial Cell Urine Few /hpf (Few)
[2022-01-06 20:48] LABS: Alanine Aminotransferase 14 U/L (6-35); Albumin Level 4.2 g/dL (3.5-5.1); Alkaline Phosphatase 82 U/L (38-126); Anion Gap 10 mmol/L (8-16); Aspartate Amino Transferase 23 U/L (14-36); Bilirubin,Total 0.2 mg/dL (0.2-1.3); Blood Urea Nitrogen 8 mg/dL (7-17); Calcium 9.6 mg/dL (8.4-10.2); Carbon Dioxide 25 mmol/L (22-30); Chloride 103 mmol/L (98-107); Estimated CRCL calculation 87 ml/min; Estimated Glomerular Filt Rate > 60; Glucose 94 mg/dL (65-110); Potassium 3.6 mmol/L (3.4-5.0); Sodium 138 mmol/L (137-145)
[2022-01-06 21:04] LABS: Beta HCG Quantitative > 15000.00 mIU/ML
--- NOTE | 2022-01-06 21:09 | PC.NURSE ---
Patient taken to US.
== END 2022-01-06 23:52 | disposition home or self-care (01) ==
PROVIDERS: Emergency Provider Emergency Medicine
DX: N83.201 Unspecified ovarian cyst, right side (principal); R10.9 Unspecified abdominal pain; F17.200 Nicotine dependence, unspecified, uncomplicated
CPT/HCPCS: 36415; 76801; 76817; 80053; 81001; 84702; 85025; 87077; 87086; 87186; 96365; 99284; J0131; J7030

== ENCOUNTER 2022-02-21 21:46 | Emergency (ER) | payer OTHER, SELFPAY ==
[2022-02-21 21:47] VITALS: BP 113/74; PULSE 92; RESP 16; TEMP 36.8; O2SAT 100
--- NOTE | 2022-02-21 23:32 | PC.NURSE ---
patient left without seeing a provider.
== END 2022-02-21 23:33 | disposition left against medical advice (07) ==
DX: O26.891 Other specified pregnancy related conditions, first trimester (principal); R10.9 Unspecified abdominal pain; Z3A.13 13 weeks gestation of pregnancy
CPT/HCPCS: 99199

== ENCOUNTER 2022-03-05 15:36 | Emergency (ER) | payer OTHER, SELFPAY ==
[2022-03-05 15:53] VITALS: BP 101/61; PULSE 119; RESP 16; TEMP 37.1; O2SAT 99
--- NOTE | 2022-03-05 16:02 | ED.URI ---
HPI - URI/Sore Throat General Chief Complaint: Upper Respiratory Infection Stated Complaint: Cough, Bodyaches Time Seen by Provider: 03/05/22 16:00 Source: patient, RN notes reviewed and old records reviewed Mode of arrival: ambulatory Limitations: no limitations History of Present Illness HPI Narrative: 26-year-old female presents to the [facility] with body aches, cough, fever since yesterday. Has been taking Delsym. Is 14 weeks . 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 Related Data Home Medications Medication Instructions Recorded Confirmed trazodone 50 mg tablet 100 mg PO DAILY 10/18/20 03/05/22 prazosin 1 mg capsule 1 mg PO HS 03/02/21 03/05/22 hydroxyzine pamoate 25 mg capsule 25 mg DAILY PRN Anxiety 12/24/21 03/05/22 venlafaxine 75 mg capsule,extended 75 mg PO DAILY 12/24/21 03/05/22 release 24 hr Allergies Allergy/AdvReac Type Severity Reaction Status Date / Time Sulfa (Sulfonamide Allergy Unknown HIVES Verified 03/05/22 15:48 Antibiotics) Review of Systems Review of Systems: All systems reviewed & are unremarkable except as noted in HPI and below Constitutional: Constitutional: Reports as per HPI, Denies chills and Reports fever(s) Eyes: Eyes: Reports no additional eye complaints ENT: Reports as per HPI, Reports nasal congestion and Reports sore throat Cardiovascular: Cardiovascular: Reports no additional cardiovascular complaints Respiratory: Respiratory: Reports no additional respiratory complaints Gastrointestinal: Gastrointestinal: Reports no additional gastrointestinal complaints Musculoskeletal: Musculoskeletal: Reports no additional musculoskeletal complaints Integumentary/Breasts: Skin/Breast: Reports system reviewed and no additional complaints, except as docu Neurologic: Reports system reviewed and no additional complaints, except as documented Psychiatric: Psychiatric: Reports no additional psychiatric complaints Allergic/Immunologic: Allergic/Immunologic: Reports no additional allergic/immunologic complaints PMF Past Medical History Medical History (Updated 03/05/22 @ 16:11 by Lu Ly APRN) Endometriosis Strep pharyngitis UTI (urinary tract infection) Wrist fracture Surgical History Surgical History No history of previous surgery Social History Social History Smoking status: Current every day smoker Gender identity (if verbalized by the patient): Female Comments At the time of my signature, I reviewed and agree with the nursing past medical, surgical, social, and family history. There is no relevant family history pertinent to the patient complaint. Exam Const: General: healthy appearing, comfortable, no acute distress, well developed, alert and well nourished Nutritional Appearance: well nourished Orientation/consciousness: patient oriented x3 Limitations: no limitations HENMT: Head: normal to inspection Ears: external ears normal, TM's normal bilaterally and EAC's normal Face/Nose/Sinus: Normal external nose present and Nasal discharge present clear bilateral Face and sinus: normal facial exam and sinus tenderness frontal and maxillary Mouth: Yes Normal oral and palatal mucosa present, Yes lip normal and Yes moist mucous membranes Throat: posterior oropharynx normal and uvula midline Eyes: General: appearance normal, both eyes and all related structures Pupils: Equal, round and reactive pupils present Neck: Neck: normal visual inspection, full ROM, no lymphadenopathy and no meningeal signs Chest: Chest palpation & inspection: normal inspection of the chest Resp: Effort & Inspection: normal respiratory effort and no use of accessory muscles Auscultation: clear to auscultation bilaterally, no crackles, no rales, no r
== END 2022-03-05 16:15 | disposition home or self-care (01) ==
PROVIDERS: Emergency Provider Nurse Practitioner
DX: O98.512 Other viral diseases complicating pregnancy, second trimester (principal); B33.8 Other specified viral diseases; Z3A.14 14 weeks gestation of pregnancy; O99.891 Other specified diseases and conditions complicating pregnancy; N80.9 Endometriosis, unspecified; O99.332 Smoking (tobacco) complicating pregnancy, second trimester; F17.200 Nicotine dependence, unspecified, uncomplicated
CPT/HCPCS: 87804; 99213; G0463

== ENCOUNTER 2022-05-01 11:03 | Observation (INO) | payer OTHER, SELFPAY ==
--- NOTE | ~2022-05-01 | US_ITS ---
EXAMINATION: US OB limited DATE: 05/01/2022 12:40 INDICATION: Cramping. TECHNIQUE: Real-time transvaginal and transabdominal ultrasound of the pelvis was performed. COMPARISON: Ultrasound 01/06/2022 FINDINGS: There is a single fetus in transverse lie. The placenta is anterior, 0.8 cm from the cervix. h eart rate is 144 beats per minute (bpm). The amniotic fluid volume is subjectively normal. The cervic al length is normal. IMPRESSION: 1. Single living fetus in transverse lie. 2. Low-lying placenta. 3. Normal cervical length. Reviewed, dictated and finalized at location A. LOP CUTTER MACHINE
[2022-05-01 11:15] VITALS: TEMP 36.2; BMI 26.6
[2022-05-01 11:17] VITALS: BP 105/71; PULSE 83
[2022-05-01 11:30] VITALS: BP 113/71; PULSE 86
--- NOTE | 2022-05-01 11:30 | PC.NURSE ---
To ultrasound per wheelchair.
[2022-05-01 11:45] VITALS: BP 108/70; PULSE 82
[2022-05-01 11:50] LABS: Add Urine Microscopic? YES; Appearance Urine Clear (Clear); Bilirubin Urine Negative (Negative); Blood Urine Negative (Negative); Color Urine Yellow (Yellow); Glucose Urine UA Negative (Negative); Ketones Urine Negative (Negative); Leukocyte Esterase Ur 1+ LEU/UL (NEGATIVE); Nitrate Urine Negative (Negative); Protein Urine Negative (Negative); Urobilinogen Urine 0.2 mg/dL (<2.0); pH Urine 7.5 (5.0-9.0)
--- NOTE | 2022-05-01 11:50 | OBADM ---
This patient, Ariana Marie, admitted to the OB room OB Post 116 for observation. Patient/family oriented to hospital policies and general routines including ID bracelet, bed and alarms, visiting hours, pain management, procedures, bathroom and other care routines, personal items, smoking policy, room service/diet, and visiting hours. Patient/Family are encouraged to report perceived risks to care and to ask questions if they do not understand what they are told or what they should do.
[2022-05-01 12:00] VITALS: BP 106/71; PULSE 87
--- NOTE | 2022-05-01 12:04 | PC.NURSE ---
Update to Juan Antonio Candelario CNMiya Orders for cervical length. Pt resting quietly. No complaints at this time. Abdomen soft.
[2022-05-01 12:10] LABS: Bacteria Urine Trace /hpf; RBC Urine 0-2 /hpf (0-2); Squamous Epithelial Cell Urine Few /hpf (Few); WBC Urine 16-20 /hpf (0-3)
--- NOTE | 2022-05-03 07:36 | P.PNOB_ITS ---
OB - Triage/Final Diagnosis Visit Information Date of evaluation: 05/01/22 Reason for evaluation: other (flank pain) Comments/Additional reasons for admission: I have assessed the risk for this patient, Ariana Marie, and determined that she would benefit from observation care. Evaluation Laboratory results: Laboratory Tests 05/01/22 11:32 Urine Color Yellow Urine Appearance Clear Urine pH 7.5 Ur Specific [place] 1.010 Urine Protein Negative Urine Glucose (UA) Negative Urine Ketones Negative Ur Blood (Man) Negative Urine Nitrate Negative Urine Bilirubin Negative Urine Urobilinogen 0.2 Ur Leukocyte Esterase 1+ H Urine RBC 0-2 Urine WBC 16-20 H Ur Squamous Epith Cells Few Urine Bacteria Trace
== END 2022-05-01 13:38 | disposition home or self-care (01) ==
LOC: ANHOBPP 11:09
PROVIDERS: Advanced Practice Midwife; Admitting Provider Obstetrics & Gynecology; Visit Provider Obstetrics & Gynecology
DX: O26.892 Other specified pregnancy related conditions, second trimester (principal); R10.9 Unspecified abdominal pain; Z3A.22 22 weeks gestation of pregnancy
CPT/HCPCS: 76815; 81001; 87077; 87086; 87088; 87186; G0378; G0379

== ENCOUNTER 2022-05-01 21:32 | Observation (INO) | payer OTHER, SELFPAY ==
--- NOTE | ~2022-05-01 | US_ITS ---
Renal-Bladder ultrasound Clinical History: Right flank pain Technique: Real-time sonographic imaging of the kidneys and urinary bladder was performed. Findings: The right kidney measures 11.4 cm in length and the left kidney measures 11.4 cm. There is mild left hydronephrosis. No right hydronephrosis. Renal cortical echogenicity is within normal limit s. No renal mass lesion is identified. The urinary bladder is moderately distended at the time of this exam. No intraluminal echoes are iden tified. No abnormal wall thickening is seen. Impression: Mild left hydronephrosis. No right hydronephrosis. Reviewed, dictated and finalized at location M. ING SUPERVISOR Impression: Mild left hydronephrosis. No right hydronephrosis.
--- NOTE | 2022-05-01 21:32 | PC.NURSE ---
Pt arrived to unit in tears and SOB c/o right flank/back pain that started at 1800. Pt was seen earlier today for contractions and states this pain is different and constant and is rating her pain 10/10. Pt denies vaginal bleeding, leaking of fluid, or contractions at this time.
[2022-05-01 21:46] VITALS: BP 128/75; PULSE 103
--- NOTE | 2022-05-01 21:48 | PC.NURSE ---
Tito CNM called via mortgage loan underwriter and informed of pt arrival, that she was seen earlier and UA and US were performed with results given to CNM, notified of pt c/o right flank pain. Orders received for UA, CBC, oral hydration, flexoril 10mg PO once.
[2022-05-01 22:19] LABS: Hemoglobin 11.2 g/dL (12.0-15.0); Mean Corpuscular HGB Conc 32.9 g/dl (32-36); Mean Corpuscular Hemoglobin 29.1 pg (26-34); Mean Corpuscular Volume 88.3 fl (80-100); Mean Platelet Volume 10.2 fl (7.4-10.4); Platelet Count Result 332 k/mm3 (150-375); Red Blood Count 3.85 M/mm3 (4.2-5.4); Red Cell Distribution Width 14.7 % (11.5-14.5); White Blood Count 21.6 K/mm3 (4.5-10.0)
[2022-05-01 22:27] LABS: Add Urine Microscopic? YES; Appearance Urine Clear (Clear); Bilirubin Urine Negative (Negative); Blood Urine 3+ (Negative); Color Urine Yellow (Yellow); Glucose Urine UA Negative (Negative); Ketones Urine Negative (Negative); Leukocyte Esterase Ur 3+ LEU/UL (Negative); Nitrate Urine Negative (Negative); Protein Urine 2+ mg/dL (Negative); Specific Grav Ur 1.015 (1.001-1.035); Urobilinogen Urine 0.2 mg/dL (<2.0)
[2022-05-01] MEDS: CYCLOBENZAPRINE HCL 10 MG TABLET PO (22:29)
[2022-05-01 22:39] LABS: Bacteria Urine Trace /hpf; Mucus Urine Rare /lpf; RBC Urine 51-75 /hpf (0-2); Squamous Epithelial Cell Urine Few /hpf (Few); WBC Clumps Urine Present /HPF; WBC Urine >75 /hpf
[2022-05-01 23:04] LABS: Band Neutrophils Percent 1 % (0-6); Eosinophils Absolute Manual 0.21 K/mm3 (0.02-0.5); Eosinophils Percent Manual 1 % (0-4); Monocytes Absolute Manual 0.86 K/mm3 (0.1-0.90); Monocytes Percent Manual 4 % (3-9); Neutrophils Absolute Manual 17.71 K/mm3 (1.7-7.2); Neutrophils Percent Manual 81 % (46-73); Total Cells Counted 100
[2022-05-01 23:05] LABS: Ovalocytes 1+ (NORMAL); Platelet Estimate Adequate (Adequate); Schistocytes None Seen (NORMAL)
--- NOTE | 2022-05-01 23:25 | PC.NURSE ---
Tito HAN notified of UA and CBC results at this time and that patient didn't think the flexoril worked, that she was rating pain less until she voided and is once again in tears. Orders received for rocephen 2g Q24H IV, norco 5/325 PO Q4H PRN, and an US of kidney in the morning and to strain urine
[2022-05-02] MEDS: HYDROcodone/acetaminophen (*CRX) 5-325 MG TABLET 1 TAB PO (00:02)
[2022-05-02] MEDS: LACTATED RINGERS 1,000 ML 125 ML (01:04)
[2022-05-02] MEDS: cefTRIAXone 2 GM in SODIUM CHLORIDE 0.9% IV 100 ML 200 ML IVPB (01:05)
--- NOTE | 2022-05-02 06:19 | OBADM ---
This patient, Ariana Marie, admitted to the OB room OB Post 117 for observation. Patient/family oriented to hospital policies and general routines including ID bracelet, bed and alarms, visiting hours, pain management, procedures, bathroom and other care routines, personal items, smoking policy, room service/diet, and visiting hours. Patient/Family are encouraged to report perceived risks to care and to ask questions if they do not understand what they are told or what they should do.
--- NOTE | 2022-05-02 07:35 | PC.NURSE ---
Pt to ultrasound per wheelchair.
--- NOTE | 2022-05-02 08:01 | PC.NURSE ---
pt returned from ultrasound per wheelchair
[2022-05-02 08:06] VITALS: TEMP 36.2
--- NOTE | 2022-05-02 08:40 | PM.IMHP ---
H&P: [facility] History of Present Illness Date/Time: 05/02/22 08:40 Chief Complaint: flank pain Narrative: this patient is a 27-year-old female, multiparous, 2 para 0010 at 22 weeks gestation. She presented with right lower quadrant/back pain radiating into her upper flank. She was afebrile. She denied any nausea, vomiting, fever, chills. She denies chest pain or shortness of breath. She has a history of urinary tract infection. Denies any contractions, loss of fluid, vaginal bleeding. Review of Systems Review of Systems: All systems reviewed & are unremarkable except as noted in HPI and below Constitutional: Constitutional: Denies chills, Denies fatigue, Denies fever(s) and Denies weakness Eyes: Eyes: Denies blurry vision, Denies change in vision, Denies loss of peripheral vision, Denies loss of vision, Denies other visual disturbances and Denies eye pain ENT: Denies vertigo, Denies dizziness, Denies hearing loss, Denies mouth pain, Denies nasal obstruction, Denies neck mass and Denies neck pain Cardiovascular: Cardiovascular: Denies chest pain, Denies diaphoresis, Denies syncope, Denies leg edema and Denies dyspnea Respiratory: Respiratory: Denies chest congestion, Denies cough, Denies hemoptysis, Denies dyspnea and Denies wheezing Gastrointestinal: Gastrointestinal: Denies abdominal pain, Denies constipation, Denies diarrhea, Denies nausea and Denies vomiting Genitourinary: Genitourinary: Denies hematuria, Denies change in libido, Denies nocturia, Denies genital lesions, Denies flank pain and Denies urinary urgency Musculoskeletal: Musculoskeletal: Denies abnormal gait, Denies back pain, Denies myalgias, Denies arthralgias, Denies joint swelling, Denies muscle weakness and Denies neck pain Integumentary/Breasts: Skin/Breast: Denies swelling, Denies breast pain, Denies breast mass, Denies dry skin, Denies nipple discharge, Denies unusual bruising and Denies jaundice Neurologic: Denies Neuro-related abnormal movements, Denies Abnormal speech present, Denies abnormal gait, Denies behavioral changes, Denies confusion, Denies vertigo, Denies dizziness, Denies syncope, Denies loss of vision, Denies memory loss, Denies convulsions and Denies weakness Psychiatric: Psychiatric: Denies abnormal sleep pattern, Denies behavioral changes, Denies change in libido, Denies confusion, Denies depression, Denies anhedonia and Denies memory loss Endocrine: Endocrine: Reports no additional endocrine complaints, Denies change in libido and Denies fatigue Hematologic/Lymphatic: Hematologic/Lymphatic: Reports no additional hematologic/lymphatic complaints Allergic/Immunologic: Allergic/Immunologic: Reports no additional allergic/immunologic complaints and Denies wheezing PMFSH Past Medical History Medical History (Updated 05/02/22 @ 08:45 by Ava Calle MD) Endometriosis Strep pharyngitis UTI (urinary tract infection) Wrist fracture Surgical History Surgical History No history of previous surgery Social History Social History Smoking status: Current every day smoker Gender identity (if verbalized by the patient): Female Meds Home Medications and Allergies Home Medications Medication Instructions Recorded Confirmed Type trazodone 50 mg tablet 100 mg PO DAILY 10/18/20 05/01/22 History prazosin 1 mg capsule 1 mg PO HS 03/02/21 03/05/22 History hydroxyzine pamoate 25 mg capsule 25 mg DAILY PRN Anxiety 12/24/21 03/05/22 History venlafaxine 75 mg capsule,extended 75 mg PO DAILY 12/24/21 03/05/22 History release 24 hr Allergies Allergy/AdvReac Type Severity Reaction Status Date / Time Sulfa (Sulfonamide Allergy Unknown HIVES Verified 03/05/22 15:48 Antibiotics) Vital Signs Vital Signs - 24 hr 05/01/22 21:46 05/02/22 08:06 Temperature 97.1 F L Pulse Rate 103 H Blood Pressure 128/75
--- NOTE | 2022-05-02 08:48 | PC.NURSE ---
Dr. Calle in department. Ultrasound results reported. New orders received to discharge pt home with prescription for antibiotics.
--- NOTE | 2022-05-15 19:58 | P.PNOB_ITS ---
OB - Triage/Final Diagnosis Visit Information Comments/Additional reasons for admission: I have assessed the risk for this patient, Ariana Marie, and determined that she would benefit from observation care. Evaluation Laboratory results: Laboratory Tests 05/01/22 05/01/22 22:04 22:11 WBC 21.6 H RBC 3.85 L Hgb 11.2 L Hct 34.0 L MCV 88.3 MCH 29.1 MCHC 32.9 RDW 14.7 H Plt Count 332 MPV 10.2 Immature Gran % (Auto) Not Reportable Neut % (Auto) Not Reportable Lymph % (Auto) Not Reportable [place] % (Auto) Not Reportable Eos % (Auto) Not Reportable Baso % (Auto) Not Reportable Lymph # (Auto) Not Reportable [place] # (Auto) Not Reportable Eos # (Auto) Not Reportable Baso # (Auto) Not Reportable Abs Immat Gran (auto) Not Reportable Absolute Neuts (auto) Not Reportable Absolute Nucleated RBC Not Reportable Total Counted 100 Neutrophils % (Manual) 81 H Band Neutrophils % 1 Lymphocytes % (Manual) 13.0 L Monocytes % (Manual) 4 Eosinophils % (Manual) 1 Nucleated RBC % Not Reportable Abs Neuts (Manual) 17.71 H Abs Lymphs (Manual) 2.80 Abs Monocytes (Manual) 0.86 Absolute Eos (Manual) 0.21 Platelet Estimate Adequate Ovalocytes 1+ Schistocytes None seen Urine Color Yellow Urine Appearance Clear Urine pH 7.0 Ur Specific [place] 1.015 Urine Protein 2+ H Urine Glucose (UA) Negative Urine Ketones Negative Ur Blood (Man) 3+ H Urine Nitrate Negative Urine Bilirubin Negative Urine Urobilinogen 0.2 Leukocyte Esterase Rfl 3+ H Urine RBC 51-75 H Urine WBC >75 H Urine WBC Clumps Present H Ur Squamous Epith Cells Few Urine Bacteria Trace Urine Mucus Rare Final Diagnosis (1) Pyelonephritis: Code(s): N12 - Tubulo-interstitial nephritis, not specified as acute or chronic Status: Acute
== END 2022-05-02 09:33 | disposition home or self-care (01) ==
PROVIDERS: Advanced Practice Midwife; Admitting Provider Obstetrics & Gynecology; Visit Provider Obstetrics & Gynecology
DX: O99.891 Other specified diseases and conditions complicating pregnancy (principal); N12 Tubulo-interstitial nephritis, not specified as acute or chronic; B96.20 Unspecified Escherichia coli [E. coli] as the cause of diseases classified elsewhere; O99.332 Smoking (tobacco) complicating pregnancy, second trimester; F17.210 Nicotine dependence, cigarettes, uncomplicated; Z3A.22 22 weeks gestation of pregnancy; Z79.899 Other long term (current) drug therapy
CPT/HCPCS: 36415; 76775; 76815; 81001; 85025; 87077; 87086; 87186; 96374; A9270; G0378; G0379; J0696; J7120

== ENCOUNTER 2022-06-26 10:40 | Emergency (ER) | payer OTHER, SELFPAY ==
[2022-06-26 11:04] VITALS: BP 113/70; PULSE 94; RESP 18; TEMP 36.9; O2SAT 99
--- NOTE | 2022-06-26 13:05 | ED.URI ---
HPI - URI/Sore Throat General Chief Complaint: Upper Respiratory Infection Stated Complaint: L SIDED RIB PAIN 31WKS PREG Time Seen by Provider: 06/26/22 12:09 History of Present Illness HPI Narrative: Patient is a 27-year-old female at approximately 31 weeks gestation presenting with left rib pain. Patient states that she and her fianc? have had intermittent viral URIs for the last month. States that she continues to have a cough and seems to cough a lot at night. States that this morning she woke up and had pain over her lower left ribs that is worse with coughing. States she is very tender in this area. She called her OB who told her to come in for evaluation. Patient states that it just feels like a muscle strain. She denies pain anywhere else. No abdominal pain. No shortness of breath or lightheadedness. No nausea or vomiting, dysuria, leg swelling. Related Data Home Medications Medication Instructions Recorded Confirmed trazodone 50 mg tablet 100 mg PO DAILY 10/18/20 05/01/22 Allergies Allergy/AdvReac Type Severity Reaction Status Date / Time Sulfa (Sulfonamide Allergy Unknown HIVES Verified 03/05/22 15:48 Antibiotics) Review of Systems Review of Systems: All systems reviewed & are unremarkable except as noted in HPI and below PMFSH Past Medical History Medical History (Updated 06/27/22 @ 00:00 by Background Datanja) Endometriosis Strep pharyngitis UTI (urinary tract infection) Wrist fracture Surgical History Surgical History No history of previous surgery Social History Social History Smoking status: Current every day smoker Gender identity (if verbalized by the patient): Female Exam Narrative: GENERAL: Well-appearing, well-nourished, and in no acute distress. HEAD: Normocephalic, atraumatic. EYES: PERRLA and EOMI. ENT: Nares clear, no rhinorrhea or epistaxis. Mucous membranes moist. NECK: Supple. CHEST: Clear to auscultation. No respiratory distress. Focal tenderness left lower ribs, patient states same pain as she feels when she coughs HEART: Regular rate and rhythm. No murmur heard. Normal peripheral pulses. ABDOMEN: Soft, nontender, gravid abdomen appropriate for gestational age EXTREMITIES: Normal range of motion. No edema. SKIN: Warm, dry, no rash. NEURO: No focal deficits. Alert and oriented x3. PSYCH: Normal mood and affect. Course Vital Signs Vital signs: Vital Signs Temperature 98.4 F 06/26/22 11:04 Pulse Rate 94 06/26/22 11:04 Respiratory Rate 18 06/26/22 11:04 Blood Pressure 113/70 06/26/22 11:04 Pulse Oximetry 99 06/26/22 11:04 Oxygen Delivery Room Air 06/26/22 11:04 Temperature 98.4 F 06/26/22 11:04 Pulse Rate 85 06/26/22 13:25 Respiratory Rate 16 06/26/22 13:25 Blood Pressure 123/84 06/26/22 13:25 Pulse Oximetry 100 06/26/22 13:25 Oxygen Delivery Room Air 06/26/22 11:04 MDM - URI/Sore Throat MDM Narrative Medical decision making narrative: 27-year-old female presenting with left lower rib pain in the setting of several weeks of coughing with viral URI symptoms. Vitals here are within normal limits. She is saturating 99% on room air. Exam is remarkable for reproducible left lower chest wall pain. Her lungs are clear. She denies any associated symptoms. I offered Tylenol for pain which patient declined. heart rate is approximately 135. Patient feels that her pain is related to a muscle strain from coughing which is consistent with the reproducible chest tenderness and lack of associated symptoms. I offered to test her for flu/COVID, chest x-ray but patient declines at this time. States that she does not want radiation to her fetus. Feel the patient is safe for outpatient management. Vitals remained within normal limits. Advised that she follow-up with her [employer]. Strict return precauti
[2022-06-26 13:25] VITALS: BP 123/84; PULSE 85; RESP 16; O2SAT 100
== END 2022-06-26 13:26 | disposition home or self-care (01) ==
PROVIDERS: Emergency Provider Emergency Medicine; PCP Obstetrics & Gynecology
DX: O99.513 Diseases of the respiratory system complicating pregnancy, third trimester (principal); J06.9 Acute upper respiratory infection, unspecified; R07.89 Other chest pain; O99.333 Smoking (tobacco) complicating pregnancy, third trimester; F17.200 Nicotine dependence, unspecified, uncomplicated; Z3A.31 31 weeks gestation of pregnancy
CPT/HCPCS: 99281

== ENCOUNTER 2022-07-13 08:03 | Emergency (ER) | payer OTHER, SELFPAY ==
[2022-07-13] VITALS (9 sets, daily range): BP systolic 112–139; BP diastolic 69–91; PULSE 71–104; RESP 17–18; TEMP 36.8; O2SAT 97–100
--- NOTE | ~2022-07-13 | CT_ITS ---
EXAMINATION: CTA chest PE protocol DATE: 07/13/2022 11:16 CDT INDICATION: Dyspnea. Rib pain. TECHNIQUE: Computed tomographic angiography (CTA) of the chest was performed with 100 mL Omnipaque-35 0 intravenous contrast. The dose-length product was 220.15 mGy-cm. Maximum intensity projection 3D-re constructions of the aorta and other arteries were constructed by the technologist on a separate work station. Automated exposure control and iterative reconstruction technique were employed. COMPARISON: Chest x-ray dated 07/13/2022. FINDINGS: No thoracic lymphadenopathy. Heart size normal. There is dependent atelectasis. Study is te chnically adequate without evidence for pulmonary embolism. No evidence for thoracic aortic aneurysm or dissection. Upper abdomen is unremarkable. No acute osseous abnormality. No endobronchial lesions. No pneumothorax. No focal airspace consolidation. Trace left pleural effusion. IMPRESSION: 1. No evidence for pulmonary embolism. 2: Bibasilar dependent atelectasis. 2: Trace left pleural effusion. Reviewed, dictated and finalized at location A.
--- NOTE | ~2022-07-13 | XR_ITS ---
EXAMINATION: XR chest 1V portable 07/13/2022 09:57 INDICATION: Left-sided rib pain PROCEDURE: AP portable chest COMPARISON: 10/11/2018 FINDINGS: The lungs are clear. The cardiomediastinal silhouette is within normal limits. There are no pleural effusions. There is no pneumothorax suspected. IMPRESSION: 1: NO ACUTE CARDIOPULMONARY DISEASE. Reviewed, dictated and finalized at location A.
--- NOTE | 2022-07-13 08:37 | PC.NURSE ---
Pt she had Tylenol this morning at around 6:30am.
--- NOTE | 2022-07-13 09:28 | ECG_ITS ---
Measurements Intervals [place] Rate: 72 P: -29 [place]: 130 QRS: 64 QRSD: 73 T: 15 QT: 377 QTc: 415 Interpretive Statements SINUS RHYTHM DELAYED PRECORDIAL R/S TRANSITION BASELINE ARTIFACT- V6 BORDERLINE ECG NO PREVIOUS ECG AVAILABLE FOR COMPARISON Electronically Signed On 07-13-2022 21:25:11 CDT by Iain Chen D.O.
--- NOTE | 2022-07-13 09:33 | ED.GENADULT ---
HPI - General Adult General Chief complaint: Unspecified Stated complaint: Left Rib/Side Pain, 33 weeks Preg Time Seen by Provider: 07/13/22 08:55 History of Present Illness HPI narrative: 27 y/o F who is 33 weeks reports for left lateral rib pain x2 weeks, worsening in the past 24 to 48 hours. Pt reports the rib pain started 2 weeks ago when she had cold symptoms, and thought it was related to coughing. States the pain improved, until 2 days ago when she coughed and felt a sharp pain in her left ribs. At this point, she reports the pain was so severe she was having difficulty get out of her car w/o assistance. Pt states she later sneezed, worsening the pain. Since the, she has had pain in her L shoulder and neck. Pain is worse with neck and shoulder movement. Reports the rib pain as sharp, pleuritic. She is also complaining of dyspnea and an intermittent non-productive cough. Reports she had an OB apt yesterday and was told it was most likely MSK related, and advised to take Tylenol. She has been taking Tylenol with some relief. Last dose 3 hours ago. Pt reports she had a bedside US yesterday while at the OB and the fetus looks healthy. There have been no complications throughout her , other than frequent UTIs. She is currently taking Macrobid. Her OB is Dr. Calle at [facility]. Pt denies n/v/d, abdominal pain, vaginal bleeding, back pain, urinary complaints, headache, fever, body aches, chills, CP other than the rib pain. Denies paresthesias and weakness in her extremities. Denies lower leg swelling, pain, recent surgeries or hospitalizations, hx of VTE, recent long car or plane rides, hx of cancer. No trauma to head, neck, chest or shoulders. Related Data Home Medications Medication Instructions Recorded Confirmed trazodone 50 mg tablet 100 mg PO DAILY 10/18/20 05/01/22 Allergies Allergy/AdvReac Type Severity Reaction Status Date / Time Sulfa (Sulfonamide Allergy Unknown HIVES Verified 07/13/22 08:33 Antibiotics) Review of Systems Review of Systems: CONSTITUTIONAL: Denies fever, chills EYES: Denies visual changes, redness, or discharge. ENT: Denies rhinorrhea, congestion, sore throat, or otalgia. CARDIOVASCULAR: Denies chest pain, palpitations, or edema. RESPIRATORY: Denies cough or dyspnea. GASTROINTESTINAL: Denies abdominal pain, nausea, vomiting, or diarrhea. GENITOURINARY: Denies dysuria or hematuria. SKIN: Denies rash or itching. MUSCULOSKELETAL: Denies back pain NEUROLOGIC: Denies headache, numbness, dizziness, or weakness. PSYCHIATRIC: Denies anxiety or depression. [facility] Past Medical History Medical History (Updated 07/13/22 @ 12:10 by Wendie Salazar PA-C) Endometriosis Strep pharyngitis UTI (urinary tract infection) Wrist fracture Surgical History Surgical History No history of previous surgery Social History Social History Smoking status: Current every day smoker Gender identity (if verbalized by the patient): Female Exam Narrative: GENERAL: Well-appearing, well-nourished, and in no acute distress. Pt laying in exam bed, conversational. No respiratory distress. Speaking in full sentences. HEAD: Normocephalic, atraumatic. EYES: PERRLA and EOMI. ENT: Nares clear, no rhinorrhea or epistaxis. Mucous membranes moist. Oropharynx without tonsillar hypertrophy exudate or other lesions. Multiple caries NECK: Supple. No adenopathy or masses. No midline cervical spinous tenderness, step-offs, deformities. Tenderness and palpable muscle spasm to L trapezius. Full range of motion of neck with pain. No nuchal rigidity. CHEST: Clear to auscultation. No respiratory distress. No wheezes rales or rhonchi. Tenderness to palpation of lower left lateral ribs extending anteriorly. No step-offs, deformity, skin changes. HEART: Regular rate and rhythm. No murmur heard. Normal
[2022-07-13 09:50] LABS: Basophils Absolute Auto 0.1 K/mm3 (0.0-0.1); Basophils Percent Auto 0.4 % (0.2-1.2); Eosinophils Absolute Auto 0.1 K/mm3 (0-0.3); Eosinophils Percent Auto 0.9 % (0-4.4); Hematocrit 37.3 % (37.0-47.0); Hemoglobin 11.8 g/dL (12.0-15.0); Immature Granulocyte Absolute 0.17 K/mm3 (0.00-0.031); Immature Granulocyte Percent A 1.1 % (0-0.5); Lymphocytes Absolute Auto 1.98 K/mm3 (0.9-3.2); Lymphocytes Percent Auto 13.4 % (18.3-44.2); Mean Corpuscular HGB Conc 31.6 g/dl (32-36); Mean Corpuscular Hemoglobin 26.8 pg (26-34); Mean Corpuscular Volume 84.8 fl (80-100); Mean Platelet Volume 9.9 fl (7.4-10.4); Monocytes Percent Auto 6.4 % (2.6-8.5); Neutrophils Absolute Auto 11.5 K/mm3 (1.3-6.7); Neutrophils Percent Auto 77.8 % (45.5-73.1); Platelet Count Result 357 k/mm3 (150-375); Red Cell Distribution Width 15.8 % (11.5-14.5); White Blood Count 14.8 K/mm3 (4.5-10.0)
[2022-07-13 10:04] LABS: Alanine Aminotransferase 15 U/L (6-35); Albumin Level 3.8 g/dL (3.5-5.1); Alkaline Phosphatase 131 U/L (38-126); Anion Gap 5 mmol/L (8-16); Aspartate Amino Transferase 21 U/L (14-36); Bilirubin,Total 0.4 mg/dL (0.2-1.3); Blood Urea Nitrogen 5 mg/dL (7-17); Calcium 9.1 mg/dL (8.4-10.2); Carbon Dioxide 26 mmol/L (22-30); Chloride 105 mmol/L (98-107); Estimated CRCL calculation 108 ml/min; Estimated Glomerular Filt Rate > 60; Glucose 79 mg/dL (65-110); Lipase 47 U/L (23-300); Potassium 3.9 mmol/L (3.4-5.0); Sodium 136 mmol/L (137-145)
[2022-07-13] MEDS: ONDANSETRON INJ 4 MG/2 ML VIAL IV PUSH (10:06)
[2022-07-13] MEDS: MORPHINE SULFATE (*CRX) 4 MG/ML INJ IV PUSH ×2 (10:06→13:22)
[2022-07-13 10:15] LABS: Troponin I < 0.012 ng/mL (0.000-0.034)
[2022-07-13 10:25] LABS: D Dimer 1.37 ug/mL (<0.48)
[2022-07-13 10:46] LABS: Appearance Urine Clear (Clear); Bacteria Urine 1+ /hpf; Bilirubin Urine Negative (Negative); Blood Urine Negative (Negative); Color Urine Yellow (Yellow); Glucose Urine UA Negative (Negative); Ketones Urine Negative (Negative); Leukocyte Esterase Ur 1+ LEU/UL (Negative); Need Manual Microscopic Reviewed; Nitrate Urine Negative (Negative); Non Pathogenic Casts 0-2; Protein Urine Negative (Negative); RBC Urine 0-2 /hpf (0-2); Squamous Epithelial Cell Urine Moderate /hpf (Few); Urobilinogen Urine 0.2 mg/dL (<2.0)
[2022-07-13 10:47] LABS: Influenza A QL RT-PCR Negative (Negative); Influenza B QL RT-PCR Negative (Negative); SARS-CoV-2 RNA PCR Negative
[2022-07-13 10:47] LABS: Add Urine Microscopic? YES
[2022-07-13 12:55] LABS: Troponin I < 0.012 ng/mL (0.000-0.034)
== END 2022-07-13 13:35 | disposition home or self-care (01) ==
PROVIDERS: Emergency Provider Physician Assistant; PCP Obstetrics & Gynecology
DX: R07.81 Pleurodynia (principal); M54.2 Cervicalgia; Z20.822 Contact with and (suspected) exposure to COVID-19; O99.891 Other specified diseases and conditions complicating pregnancy; Z3A.33 33 weeks gestation of pregnancy
CPT/HCPCS: 36415; 71045; 71275; 80053; 81001; 83690; 84484; 85025; 85380; 87086; 87088; 87636; 93005; 96374; 96375; 96376; 99284; J2270; J2405; Q9967

== ENCOUNTER 2022-08-09 19:02 | Inpatient (IN) | payer OTHER, SELFPAY ==
[2022-08-09 19:28] VITALS: BMI 34.0
--- NOTE | 2022-08-09 19:32 | LDADM ---
This patient, Ariana Marie, was admitted to Labor/Delivery/Recovery 103 on 08/09/22 at 19:02. Plans for labor, pain management and were discussed with patient. Patient/family oriented to hospital policies and general routines including ID bracelet, bed and alarms, visiting hours, pain management, procedures, bathroom and other care routines, personal items, smoking policy, room service/diet and guest tray routines, security routines, and visiting hours. Patient/Family are encouraged to report perceived risks to care and to ask questions if they do not understand what they are told or what they should do. See OBIX for further documentation.
[2022-08-09 19:36] LABS: Basophils Percent Auto 0.3 % (0.2-1.2); Eosinophils Absolute Auto 0.1 K/mm3 (0-0.3); Eosinophils Percent Auto 0.9 % (0-4.4); Hematocrit 36.5 % (37.0-47.0); Hemoglobin 11.5 g/dL (12.0-15.0); Immature Granulocyte Absolute 0.17 K/mm3 (0.00-0.031); Immature Granulocyte Percent A 1.2 % (0-0.5); Lymphocytes Absolute Auto 2.16 K/mm3 (0.9-3.2); Lymphocytes Percent Auto 15.4 % (18.3-44.2); Mean Corpuscular HGB Conc 31.5 g/dl (32-36); Mean Corpuscular Hemoglobin 26.7 pg (26-34); Mean Corpuscular Volume 84.7 fl (80-100); Mean Platelet Volume 10.1 fl (7.4-10.4); Monocytes Absolute Auto 0.9 K/mm3 (0.1-0.6); Monocytes Percent Auto 6.7 % (2.6-8.5); Neutrophils Absolute Auto 10.6 K/mm3 (1.3-6.7); Neutrophils Percent Auto 75.5 % (45.5-73.1); Nucleated Red Blood Cells Perc 0.2 % (0.0-0.2); Platelet Count Result 330 k/mm3 (150-375); Red Blood Count 4.31 M/mm3 (4.2-5.4); White Blood Count 14.1 K/mm3 (4.5-10.0)
[2022-08-09] MEDS: DINOPROSTONE 10 MG VAG INSERT VAGINAL (20:13)
[2022-08-09 20:23] VITALS: BP 130/85; PULSE 88
[2022-08-09 20:30] VITALS: BP 125/87; PULSE 88; RESP 16; TEMP 36.9
[2022-08-09 21:00] VITALS: BP 125/87; PULSE 90; RESP 14; TEMP 37
[2022-08-09 21:30] VITALS: BP 120/75; PULSE 89; RESP 16; TEMP 36.8
[2022-08-09 22:00] VITALS: BP 132/89; PULSE 89; RESP 14; TEMP 37
[2022-08-09 22:30] VITALS: BP 115/73; PULSE 87; RESP 16; TEMP 37
[2022-08-09] MEDS: traZODone HCL 50 MG TABLET PO (22:40)
[2022-08-10] VITALS (11 sets, daily range): BP systolic 117–139; BP diastolic 74–94; PULSE 83–99; RESP 16; TEMP 36.3
[2022-08-10] MEDS: DINOPROSTONE 10 MG VAG INSERT VAGINAL (10:21)
--- NOTE | 2022-08-10 10:25 | WPDOBADMIT ---
Obstetrics - Admit Note Admission Note: 27 y/o G1 at 37 weeks here for induction of labor d/t IUGR per MFM recommendation. VSS Contractions irregular FHR category 1 Cervix FT per nurse Plan: repeat cervidil record reviewed. No pertinent additions to the history and/or any subsequent changes in the physical findings that are not consistent with the expected course of the were found. Additions to the history and/or subsequent changes in the physical findings follow. None.
--- NOTE | 2022-08-10 17:30 | WPDANESEPP ---
Anes - Eval Pre Procedure Procedure: Labor epidural Date/Time: 08/10/22 17:30 Pre Op Diagnosis: Induction of Labor Patient Data Age: 27 Gender: F Height: 1.52 m Weight: 79 kg Last Vital Signs Temp 36.3 C L 08/10/22 02:37 Pulse 90 08/10/22 17:30 Resp 16 08/10/22 02:37 BP 128/85 08/10/22 17:30 O2 Del Method Room Air 08/09/22 19:28 Allergies Allergy/AdvReac Type Severity Reaction Status Date / Time Sulfa (Sulfonamide Allergy Unknown HIVES Verified 08/01/22 12:47 Antibiotics) Home Medications Medication Instructions Recorded Confirmed Type trazodone 50 mg tablet 50 mg PO DAILY 10/18/20 08/09/22 History nitrofurantoin 100 mg PO DAILY #30 caps 05/02/22 08/09/22 Rx monohydrate/macrocrystals 100 mg capsule (Macrobid) ferrous sulfate 325 mg (65 mg 325 mg PO DAILY 08/01/22 08/01/22 History iron) tablet prenat.vits,shavon,yyz-jlkm-yytho 1 tablet PO DAILY 08/01/22 08/01/22 History Laboratory Tests 08/09/22 08/09/22 08/09/22 19:29 19:29 19:29 WBC 14.1 K/mm3 H K/mm3 (4.5-10.0) RBC 4.31 M/mm3 M/mm3 (4.2-5.4) Hgb 11.5 g/dL L g/dL (12.0-15.0) Hct 36.5 % L % (37.0-47.0) MCV 84.7 fl fl (80-100) MCH 26.7 pg pg (26-34) MCHC 31.5 g/dl L g/dl (32-36) RDW 19.0 % H % (11.5-14.5) Plt Count 330 k/mm3 k/mm3 (150-375) MPV 10.1 fl fl (7.4-10.4) Immature Gran % (Auto) 1.2 % H % (0-0.5) Neut % (Auto) 75.5 % H % (45.5-73.1) Lymph % (Auto) 15.4 % L % (18.3-44.2) [place] % (Auto) 6.7 % % (2.6-8.5) Eos % (Auto) 0.9 % % (0-4.4) Baso % (Auto) 0.3 % % (0.2-1.2) Lymph # (Auto) 2.16 K/mm3 K/mm3 (0.9-3.2) [place] # (Auto) 0.9 K/mm3 H K/mm3 (0.1-0.6) Eos # (Auto) 0.1 K/mm3 K/mm3 (0-0.3) Baso # (Auto) 0.0 K/mm3 K/mm3 (0.0-0.1) Abs Immat Gran (auto) 0.17 K/mm3 H K/mm3 (0.00-0.031) Absolute Neuts (auto) 10.6 K/mm3 H K/mm3 (1.3-6.7) Absolute Nucleated RBC 0.0 K/mm3 K/mm3 (0.0-0.012) Nucleated RBC % 0.2 % % (0.0-0.2) RPR Pending Blood Type O Positive Antibody Screen Negative Patient hx anesthesia problems: none Family hx anesthesia problems: none Results Review: All pre-operative results and documents have been reviewed as part of the pre-operative evaluation. [facility] Past Medical History Medical History (Updated 08/10/22 @ 17:31 by Ramila Busby CRNA) Anxiety and depression Endometriosis PTSD (post-traumatic stress disorder) Smoker Strep pharyngitis UTI (urinary tract infection) Wrist fracture Surgical History Surgical History No history of previous surgery Family History Family History Father Myocardial infarct Sibling Heart murmur Grandparent Diabetes mellitus Social History Social History Smoking packs per day: 1 Smoking cigarettes per day: 20.0 Years smoked: 10 Smoking pack-years: 10.00 Smoking status: Current every day smoker Tobacco type: cigarettes Second hand tobacco smoke exposure: Yes Substance use: never Lack of Transportation: No Lack of Food: Never True Current Housing: I Have Housing Concerned About Future Housing: No Difficulty Paying Gas/Electric Bills: No Difficulty Paying for Meds: No Currently Unemployed: No Education: Grade School Difficulty w/ Childcare or Family Care: No Gender identity (if verbalized by the patient): Female Spiritual care concerns: No Exam Day of Procedure 08/10/22 17:30 Patient weight: obese Heart: regular rate and rhythm Lungs: normal air movement Neurological: alert and oriented
[2022-08-10] MEDS: traZODone HCL 50 MG TABLET PO (23:51)
[2022-08-10] MEDS: LACTATED RINGERS 1,000 ML 125 ML IV CONT (23:51)
[2022-08-10] MEDS: OXYTOCIN 30 UNITS/NS 500 ML 30 UNITS/500 ML BAG 6 UNITS IV CONT (23:52)
[2022-08-11] VITALS (236 sets, daily range): BP systolic 49–180; BP diastolic 27–141; PULSE 69–145; RESP 14–18; TEMP 36.3–37.5; O2SAT 85–100
[2022-08-11] MEDS: fentaNYL CITRATE INJ (*CRX) 100 MCG/2 ML VIAL 50 MCG IV PUSH (05:24)
[2022-08-11] MEDS: fentaNYL CITRATE INJ (*CRX) 100 MCG/2 ML VIAL IV PUSH (06:26)
[2022-08-11] MEDS: LACTATED RINGERS 1,000 ML 999 ML IV CONT (07:56)
--- NOTE | 2022-08-11 09:10 | PM.IMHP ---
H&P: HPI History of Present Illness Date/Time: 08/11/22 09:10 Chief Complaint: Induction of labor Review of Systems Review of Systems: All systems reviewed & are unremarkable except as noted in HPI and below Constitutional: Constitutional: Reports as per HPI and Reports no additional constitutional complaints Eyes: Eyes: Reports as per HPI ENT: Reports system reviewed and no additional complaints, except as documented Cardiovascular: Cardiovascular: Reports as per HPI Respiratory: Respiratory: Reports as per HPI Gastrointestinal: Gastrointestinal: Reports as per HPI Genitourinary: Genitourinary: Reports no additional female genitourinary complaints Musculoskeletal: Musculoskeletal: Reports no additional musculoskeletal complaints Integumentary/Breasts: Skin/Breast: Reports system reviewed and no additional complaints, except as docu Neurologic: Reports system reviewed and no additional complaints, except as documented Psychiatric: Psychiatric: Reports no additional psychiatric complaints Endocrine: Endocrine: Reports no additional endocrine complaints Hematologic/Lymphatic: Hematologic/Lymphatic: Reports no additional hematologic/lymphatic complaints Allergic/Immunologic: Allergic/Immunologic: Reports no additional allergic/immunologic complaints [facility] Past Medical History Medical History (Updated 08/10/22 @ 17:32 by Ramila Busby CRNA) Anxiety and depression Endometriosis PTSD (post-traumatic stress disorder) Smoker Strep pharyngitis UTI (urinary tract infection) Wrist fracture Surgical History Surgical History No history of previous surgery Family History Family History Father Myocardial infarct Sibling Heart murmur Grandparent Diabetes mellitus Social History Social History Smoking packs per day: 1 Smoking cigarettes per day: 20.0 Years smoked: 10 Smoking pack-years: 10.00 Smoking status: Current every day smoker Tobacco type: cigarettes Second hand tobacco smoke exposure: Yes Substance use: never Lack of Transportation: No Lack of Food: Never True Current Housing: I Have Housing Concerned About Future Housing: No Difficulty Paying Gas/Electric Bills: No Difficulty Paying for Meds: No Currently Unemployed: No Education: Grade School Difficulty w/ Childcare or Family Care: No Gender identity (if verbalized by the patient): Female Spiritual care concerns: No Meds Home Medications and Allergies Home Medications Medication Instructions Recorded Confirmed Type trazodone 50 mg tablet 50 mg PO DAILY 10/18/20 08/09/22 History nitrofurantoin 100 mg PO DAILY #30 caps 05/02/22 08/09/22 Rx monohydrate/macrocrystals 100 mg capsule (Macrobid) ferrous sulfate 325 mg (65 mg 325 mg PO DAILY 08/01/22 08/01/22 History iron) tablet prenat.vits,shavon,[id number] 1 tablet PO DAILY 08/01/22 08/01/22 History Allergies Allergy/AdvReac Type Severity Reaction Status Date / Time Sulfa (Sulfonamide Allergy Unknown HIVES Verified 08/01/22 12:47 Antibiotics) Vital Signs Vital Signs - 24 hr 08/10/22 16:45 08/10/22 16:46 08/10/22 17:00 Temperature Pulse Rate 86 88 83 Blood Pressure 139/94 H 136/86 127/79 Pulse Oximetry 08/10/22 17:15 08/10/22 17:30 08/10/22 17:45 Temperature Pulse Rate 92 90 92 Blood Pressure 131/85 128/85 117/78 Pulse Oximetry 08/10/22 18:00 08/10/22 18:15 08/10/22 23:37 Temperature Pulse Rate 87 84 99 Blood Pressure 127/74 126/81 131/93 H Pulse Oximetry 08/10/22 23:45 08/11/22 00:02 08/11/22 00:27 Temperature Pulse Rate 92 106 H Blood Pressure 139/91 H 49/27 L Pulse Oximetry 94 08/11/22 00:32 08/11/22 00:37 08/11/22 00:42 Temperature Pulse Rate Blood Pressure Pulse Oxim
--- NOTE | 2022-08-11 09:10 | PM.OBPNLAB ---
Pain Control Date/time seen: 08/11/22 09:20 Comments: Comfortable with epidural Pelvic Exam Comments: 2-3/100/-2 Contractions Monitor mode: Internal (IUPC placed) Status Comments: Category 2 Assessment and Plan Comments: IUPC placed and amnioinfusion started. Pitocin off. Spoke with patient in detail about fhr and decelerations. Discussed interventions and possibility of intervention. Pt verbalized understanding and wants to proceed with labor. Dr Calle aware.
[2022-08-11] MEDS: LACTATED RINGERS 1,000 ML 500 ML IV CONT (09:31)
[2022-08-11] MEDS: SODIUM CHLORIDE 0.9% IV 300 ML 600 ML I-UTERINE (09:34)
--- NOTE | 2022-08-11 10:36 | PM.OBPNLAB ---
Pain Control Date/time seen: 08/11/22 10:15 Comments: Comforable Contractions Monitor mode: Internal (IUPC placed) Status Comments: Category 1 Assessment and Plan Comments: Pt happy to proceed with induction. Update given to Dr Calle.
[2022-08-11] MEDS: LACTATED RINGERS 1,000 ML 125 ML IV CONT (13:06)
--- NOTE | 2022-08-11 14:19 | WPDHPUPDATE1 ---
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 Unable to get adequate contractions or good position changes d/t intolerance. Discussed with patient and she is agreeable to proceed with . Primary intolerance to labor Failure to progress. History and Physical has been reviewed, including an updated exam of the patient. There are NO changes in the patient's condition. Risks, benefits, and alternatives have been discussed and questions answered. Patient agrees to proceed with procedure.
--- NOTE | 2022-08-11 14:34 | PM.IMHP ---
H&P: HPI History of Present Illness Date/Time: 08/11/22 14:34 Chief Complaint: Term Narrative: this patient is a 27-year-old 2 para 0010 at 37 weeks gestation presents for induction of labor for growth restriction. After 2 days of cervical ripening she did get into labor, in early labor she had nonreassuring heart tones, heart rate decelerations and decreased variability. We have agreed to move forward with delivery. She understands that injuries may occur that result in hospitalization, more surgery, severe illness. She understands that hemorrhage and infection is possible. She understands risks, benefits, and alternatives. She denies any nausea, vomiting, fever, chills. She denies any chest pain or shortness of breath. Review of Systems Review of Systems: All systems reviewed & are unremarkable except as noted in HPI and below Constitutional: Constitutional: Denies chills, Denies fatigue, Denies fever(s) and Denies weakness Eyes: Eyes: Denies blurry vision, Denies change in vision, Denies loss of peripheral vision, Denies loss of vision, Denies other visual disturbances and Denies eye pain ENT: Denies vertigo, Denies dizziness, Denies hearing loss, Denies mouth pain, Denies nasal obstruction, Denies neck mass and Denies neck pain Cardiovascular: Cardiovascular: Denies chest pain, Denies diaphoresis, Denies syncope, Denies leg edema and Denies dyspnea Respiratory: Respiratory: Denies chest congestion, Denies cough, Denies hemoptysis, Denies dyspnea and Denies wheezing Gastrointestinal: Gastrointestinal: Denies abdominal pain, Denies constipation, Denies diarrhea, Denies nausea and Denies vomiting Genitourinary: Genitourinary: Denies hematuria, Denies change in libido, Denies nocturia, Denies genital lesions, Denies flank pain and Denies urinary urgency Musculoskeletal: Musculoskeletal: Denies abnormal gait, Denies back pain, Denies myalgias, Denies arthralgias, Denies joint swelling, Denies muscle weakness and Denies neck pain Integumentary/Breasts: Skin/Breast: Denies swelling, Denies breast pain, Denies breast mass, Denies dry skin, Denies nipple discharge, Denies unusual bruising and Denies jaundice Neurologic: Denies Neuro-related abnormal movements, Denies Abnormal speech present, Denies abnormal gait, Denies behavioral changes, Denies confusion, Denies vertigo, Denies dizziness, Denies syncope, Denies loss of vision, Denies memory loss, Denies convulsions and Denies weakness Psychiatric: Psychiatric: Denies abnormal sleep pattern, Denies behavioral changes, Denies change in libido, Denies confusion, Denies depression, Denies anhedonia and Denies memory loss Endocrine: Endocrine: Reports no additional endocrine complaints, Denies change in libido and Denies fatigue Hematologic/Lymphatic: Hematologic/Lymphatic: Reports no additional hematologic/lymphatic complaints Allergic/Immunologic: Allergic/Immunologic: Reports no additional allergic/immunologic complaints and Denies wheezing PMFSH Past Medical History Medical History (Updated 08/11/22 @ 14:37 by Ava Calle MD) Anxiety and depression Endometriosis PTSD (post-traumatic stress disorder) Smoker Strep pharyngitis UTI (urinary tract infection) Wrist fracture Surgical History Surgical History No history of previous surgery Family History Family History Father Myocardial infarct Sibling Heart murmur Grandparent Diabetes mellitus Social History Social History Smoking packs per day: 1 Smoking cigarettes per day: 20.0 Years smoked: 10 Smoking pack-years: 10.00 Smoking status: Current every day smoker Tobacco type: cigarettes Second hand tobacco smoke exposure: Yes Substance use: never Lack of Transportation: No Lack of Food: N
[2022-08-11] MEDS: ceFAZolin 2 GM/D5W 50 ML 2 GM/50 ML BAG IVPB (14:35)
--- NOTE | 2022-08-11 14:37 | WPDHPUPDATE1 ---
History and Physical Update Update Date/Time: 08/11/22 14:37 History and Physical has been reviewed, including an updated exam of the patient. There are NO changes in the patient's condition. Risks, benefits, and alternatives have been discussed and questions answered. Patient agrees to proceed with procedure.
[2022-08-11] MEDS: KETOROLAC 30 MG/ML VIAL (*BKC) IV PUSH (15:13)
[2022-08-11] MEDS: miSOPROStol 200 MCG TABLET 1000 MCG RECTAL (15:24)
--- NOTE | 2022-08-11 15:25 | W.PM.PROC2 ---
Procedure Note - Detailed Date of Procedure 08/11/22 Pre-op Diagnosis Induction of Labor, nonreassuring heart tones Post-op Diagnosis Same Procedure Performed Low-transverse section Surgeon Ava Calle MD Anesthesia Spinal Indications term gestation, vertex, small Findings Normal gestational maternal anatomy, below average size infant, normal Apgars. Description of Procedure The patient was taken the operating room. She was prepped and draped in dorsal supine position with a leftward tilt. This was done after spinal anesthetic was applied. A low-transverse skin incision was made and carried down till of the fascia with the knife. The fascial incision was made with the knife. The fascial incision was extended laterally with George scissors. The fascia was tented upward superiorly and inferiorly the rectus muscles were dissected off bluntly. The rectus muscles were the midline. The preperitoneal fat and peritoneum were dissected open bluntly at the superior aspect of the rectus muscles. The peritoneal incision was extended superior and inferior with good position of bladder. The uterine incision was made with a scalpel down to the level of the amniotic cavity. The amniotic cavity was entered bluntly. The infant was delivered. The cord was clamped and cut and the was handed off to waiting pediatric staff. Cord bloods were obtained. The placenta was removed manually. The uterus was exteriorized. The uterus was cleared of all clots, debris and membranes. The uterus was closed in 0 Vicryl running lock fashion. An imbricating over a was placed along the incision line as well. The uterus was returned to the abdomen. The gutters were cleared of all clots and debris. The fascia was closed with 0 Vicryl running fashion. The subcutaneous tissue was irrigated pinpoint bleeders were cauterized. The skin was closed with subcuticular absorbable gabriela. The skin incision line was covered with glue. The patient tolerated the procedure well. She has taken recovery room in stable condition. Sponge lap and needle counts were correct x2. Estimated Blood Loss 180 Complications No immediate complications Condition Stable Disposition PACU
[2022-08-11] MEDS: OXYTOCIN 30 UNITS/NS 500 ML 30 UNITS/500 ML BAG 125 UNITS IV CONT (17:17)
[2022-08-11] MEDS: MORPHINE SULFATE (*CRX) 2 MG/ML INJ IV PUSH (17:25)
[2022-08-11] MEDS: DOCUSATE SODIUM 100 MG CAPSULE PO (19:41)
[2022-08-11] MEDS: LORATADINE 10 MG TABLET PO (19:45)
[2022-08-11] MEDS: traZODone HCL 50 MG TABLET PO (20:57)
[2022-08-11] MEDS: DEXTROSE 5%/0.45% SOD CHL 1,000 ML 125 ML IV CONT (22:11)
[2022-08-12] MEDS: SIMETHICONE 80 MG TAB.CHEW PO ×2 (03:19→08:11)
[2022-08-12] MEDS: IBUPROFEN 600 MG TABLET PO ×3 (03:19→20:48)
[2022-08-12] MEDS: HYDROcodone/acetaminophen (*CRX) 5-325 MG TABLET 1 TAB PO ×5 (03:20→20:48)
[2022-08-12 03:30] VITALS: BP 110/64; PULSE 106; RESP 18; TEMP 37.7; O2SAT 95
[2022-08-12 05:36] LABS: Basophils Absolute Auto 0.1 K/mm3 (0.0-0.1); Basophils Percent Auto 0.3 % (0.2-1.2); Eosinophils Absolute Auto 0.1 K/mm3 (0-0.3); Eosinophils Percent Auto 0.5 % (0-4.4); Hematocrit 29.6 % (37.0-47.0); Hemoglobin 9.3 g/dL (12.0-15.0); Immature Granulocyte Absolute 0.12 K/mm3 (0.00-0.031); Immature Granulocyte Percent A 0.7 % (0-0.5); Lymphocytes Percent Auto 13.6 % (18.3-44.2); Mean Corpuscular HGB Conc 31.4 g/dl (32-36); Mean Platelet Volume 11.2 fl (7.4-10.4); Monocytes Percent Auto 5.4 % (2.6-8.5); Neutrophils Absolute Auto 14.6 K/mm3 (1.3-6.7); Neutrophils Percent Auto 79.5 % (45.5-73.1); Platelet Count Result 271 k/mm3 (150-375); Red Blood Count 3.44 M/mm3 (4.2-5.4); White Blood Count 18.4 K/mm3 (4.5-10.0)
[2022-08-12 07:40] VITALS: BP 109/59; PULSE 80; RESP 16; TEMP 37.2; O2SAT 96
[2022-08-12] MEDS: POLYSACCHARIDE IRON COMPLEX 150 MG CAPSULE PO ×2 (08:09→17:06)
[2022-08-12] MEDS: DOCUSATE SODIUM 100 MG CAPSULE PO ×2 (08:10→17:06)
--- NOTE | 2022-08-12 08:23 | WPDANLDPN2 ---
Anes-Prog Note L&D Date/Time: 08/12/22 08:23 Comfortable throughout: section Neuraxial method: epidural Epidural/Spinal procedure site: clean & non-tender Neuro status: Neuro function grossly intact. Cardiovascular status: normal Respiratory status: normal Airway patency: baseline Mental status: baseline Post-Op hydration status: normal Vital Signs: Last Vital Signs Temp 99.8 F H 08/12/22 03:30 Pulse 106 H 08/12/22 03:30 Resp 18 08/12/22 03:30 BP 110/64 08/12/22 03:30 Pulse Ox 95 08/12/22 03:30 O2 Del Method Room Air 08/12/22 03:30 Pain score (VAS): 0/10 I/O: Intake & Output 08/11/22 08/12/22 08/12/22 23:59 07:59 15:59 Intake Total 520 100 Output Total 650 650 Balance -130 -550 Post-procedural complaints: none Patient feedback: Patient satisfied with anesthetic care.
--- NOTE | 2022-08-12 08:24 | WPDANLDNPN2 ---
Anes-Prog Note L&D-Neuraxial Date/Time: 08/12/22 08:24 Neuraxial medications: epidural PF morphine Opiod-related complaints: none Patient feedback: Patient satisfied with post-operative pain management.
[2022-08-12 09:40] LABS: Rapid Plasma Reagin Non-Reactive (NonReactive)
[2022-08-12 12:02] VITALS: BP 114/85; PULSE 90; RESP 16; TEMP 36.7; O2SAT 97
--- NOTE | 2022-08-12 13:34 | PM.OBPNVD ---
OB - PN: Subj Subjective Date/time seen: 08/12/22 13:34 Patient comments: no complaints, pain well controlled, tolerating diet and flatus present [employer] baby status: doing well OB - PN: Obj Data Labs 08/12/22 03:02 Labs: Laboratory Results - last 24 hr 08/09/22 08/12/22 19:29 03:02 WBC 18.4 H RBC 3.44 L Hgb 9.3 L Hct 29.6 L MCV 86.0 MCH 27.0 MCHC 31.4 L RDW 19.0 H Plt Count 271 MPV 11.2 H Immature Gran % (Auto) 0.7 H Neut % (Auto) 79.5 H Lymph % (Auto) 13.6 L [place] % (Auto) 5.4 Eos % (Auto) 0.5 Baso % (Auto) 0.3 Lymph # (Auto) 2.50 [place] # (Auto) 1.0 H Eos # (Auto) 0.1 Baso # (Auto) 0.1 Abs Immat Gran (auto) 0.12 H Absolute Neuts (auto) 14.6 H Absolute Nucleated RBC 0.0 Nucleated RBC % 0.0 RPR Non-reactive OB - PN A/P Plan day: 1 Plan: routine care Time Spent With Patient Time: Total time spent is greater than 50% in coordination of care (as documented) at patient's floor/unit and/or counseling patient: Time with patient: less than 15 minutes Review of Systems Review of Systems: All systems reviewed & are unremarkable except as noted in HPI and below Exam Narrative: Fundus firm. Vaginal flow controlled. Incision dry and intact. Negative homans. No redness, warmth, or pain of lower ext. Const: General: comfortable Chest: Breast/axilla inspection: normal inspection of the breasts Resp: Effort & Inspection: normal respiratory effort Auscultation: clear to auscultation bilaterally Cardio: Rate: regular rate GI: GI Palp: Yes Soft to palpation Psych: Appearance: grossly normal Affect: normal affect Attitude: cooperative Thought content: Yes Normal thought content present Judgement: Good judgement present (Psych)
[2022-08-12 20:30] VITALS: BP 144/97; PULSE 88; RESP 16; TEMP 37.4; O2SAT 97
[2022-08-12] MEDS: traZODone HCL 50 MG TABLET PO (20:50)
[2022-08-13] MEDS: IBUPROFEN 600 MG TABLET PO ×2 (05:37→13:05)
[2022-08-13] MEDS: HYDROcodone/acetaminophen (*CRX) 5-325 MG TABLET 1 TAB PO ×3 (05:38→13:06)
--- NOTE | 2022-08-13 07:51 | PM.OBPNVD ---
OB - PN: Subj Subjective Date/time seen: 08/13/22 07:51 Patient comments: no complaints, pain well controlled, incisional pain, tolerating diet and flatus present OB - PN: Obj Data Labs 08/12/22 03:02 Labs: Laboratory Results - last 24 hr 08/09/22 19:29 RPR Non-reactive OB - PN A/P Plan day: 2 Plan: routine care Comments: POD#2 LTCS - no problems, Time Spent With Patient Time: Total time spent is greater than 50% in coordination of care (as documented) at patient's floor/unit and/or counseling patient: Exam Const: General: comfortable, no acute distress and alert Resp: Effort & Inspection: normal respiratory effort Auscultation: no crackles, no rales and no rhonchi Cardio: Rate: regular rate Heart sounds: no click, no murmurs and no rubs GI: Inspection: non-distended GI Palp: No Tenderness to palpation present (GI) Auscultation: normal bowel sounds Other: Incision - CDI Extrem: General: normal to inspection, no pedal edema and no calf tenderness
--- NOTE | 2022-08-13 07:51 | PM.OBDSVD ---
DS: Admitting Diagnosis Discharge Date 08/13/22 Admitting Diagnosis term OB - DS: Summary OB Procedures : None OB Procedures Intrapartum: OB Procedures: : None Peripartum Data Procedures: Procedures Operation Date: 08/11/22 14:30 Actual Procedure Side Surgeon p Section Ava Calle MD Time Spent with Patient Time attestation: Total time spent providing and/or coordinating discharge services: DS: Data Data Completed and Pending Pending studies at discharge: Pending at discharge 08/11/22 14:57 Surgical [PTH] Routine Labs on day of discharge: Labs from last 24 hours 08/09/22 19:29 RPR Non-reactive Discharge Plan Discharge Discharging Clinician: Ava Calle Patient Disposition: Home, Self-Care Activity: pelvic rest Diet: regular Patient Instructions: Antibiotic Form Stand Alone Forms: General Discharge Information Follow-up/Referrals: Ava Calle MD [Physician] - Discharge Medications: New hydrocodone-acetaminophen 5-325 mg tablet 1 - 2 tablet PO Q6H PRN (Reason: pain) Qty: 25 0RF Continued trazodone 50 mg tablet 50 mg PO DAILY ferrous sulfate 325 mg (65 mg iron) Tablet 325 mg PO DAILY #2 Tablet 1 tablet PO DAILY nitrofurantoin monohyd/m-cryst [Macrobid] 100 mg Capsule 100 mg PO DAILY Qty: 30 0RF Rx Instructions: must administer with a meal/food start after the 10 day course and continue until the end of Date of admission: 08/09/22 19:02 Primary Care Provider: UNKNOWN,DOCTOR Admitting Provider: Ava Calle Attending physician on admission: Ava Calle Condition: Stable
[2022-08-13 07:55] VITALS: BP 119/80; PULSE 86; RESP 18; TEMP 37.1; O2SAT 98
--- NOTE | 2022-08-13 09:00 | PC.NURSE ---
PT introductions made and plan of care discussed per post op c section, pain management, bottle feeding, daily care activities and pending discharge to home.PT sole recipient of such instructions and no barriers to learning identified at this time. PT received such instructions per one to one discussion, mom baby care guide and demonstrations this shift. PT verbalized understanding of such care.
[2022-08-13 09:30] VITALS: PULSE 86; RESP 18; O2SAT 98
[2022-08-13] MEDS: TETANUS,DIPHTHERIA,AC PERTUSSIS ADULT (0.5 ML) BOOSTRIX IM (09:30)
[2022-08-13] MEDS: SIMETHICONE 80 MG TAB.CHEW PO ×2 (09:31→13:05)
[2022-08-13] MEDS: POLYSACCHARIDE IRON COMPLEX 150 MG CAPSULE PO (09:32)
[2022-08-13] MEDS: DOCUSATE SODIUM 100 MG CAPSULE PO (09:32)
[2022-08-13] MEDS: LORATADINE 10 MG TABLET PO (09:32)
--- NOTE | 2022-08-13 13:00 | PC.NURSE ---
PT received discharge instructions per protocol and verbalized understanding of such care.
--- NOTE | 2022-08-13 13:30 | PC.NURSE ---
PT discharged to home ambulatory accompanied by family and and taken to waiting car. follow up appts confirmed
[2022-08-14 11:21] VITALS: BP 125/87; PULSE 85; RESP 20; TEMP 37.2; O2SAT 97
--- NOTE | 2022-08-15 11:25 | PC.NURSE ---
Patient here with for 's bilirubin check. Expresses interest in learning to breastfeed. Patient states she pumped one time last night. Infant has only bottlefed and ate last 1 hour ago. I spoke to nurse and appt was made for patient to come back on Friday at 1300 for a consultation. Patient educated on breastmilk production being supply and demand. Encouraged to pump 10-15 minutes every 3 hours during the day and at least once in the night. Patient educated on engorgement and how to massage and use warm compresses with pumping. Given information on flange size and comfort during pumping. Given nurse's phone number and milk storage guidelines. Patient told to call if anything changes or with any questions. Patient told to continue with feeding plan discussed with peds and nursery nurse. Discussed using the breastmilk she pumps first for each feeding and following with formula until infant is full. Patient denies any questions or concerns.
== END 2022-08-13 13:30 | disposition home or self-care (01) | DRG 540 ==
LOC: ANHLDR 19:06 → ANHOB2 08-11 17:49
PROVIDERS: Advanced Practice Midwife; Admitting Provider Obstetrics & Gynecology; Visit Provider Obstetrics & Gynecology
PROC: 10D00Z1 Extraction of Products of Conception, Low, Open Approach (ICD-10-PCS; CPT 59514; principal; 2022-08-11 14:30)
DX: O36.5930 Maternal care for other known or suspected poor fetal growth, third trimester, not applicable or unspecified (principal); O99.334 Smoking (tobacco) complicating childbirth; O99.344 Other mental disorders complicating childbirth; F41.9 Anxiety disorder, unspecified; F32.A Depression, unspecified; O76 Abnormality in fetal heart rate and rhythm complicating labor and delivery; F17.210 Nicotine dependence, cigarettes, uncomplicated; Z3A.37 37 weeks gestation of pregnancy; Z37.0 Single live birth
CPT/HCPCS: 36415; 84112; 85025; 86592; 86850; 86900; 86901; 88307; 90715; A9270; J0131; J0456; J0690; J1885; J2270; J2274; J2590; J2795; J3010; J7030; J7120

== ENCOUNTER 2023-03-28 14:34 | Emergency (ER) | payer OTHER, SELFPAY ==
[2023-03-28 14:41] VITALS: BP 122/68; PULSE 86; RESP 16; TEMP 37.2; O2SAT 99
[2023-03-28 14:52] VITALS: BP 122/68; PULSE 86; RESP 16; TEMP 37.2; O2SAT 99
--- NOTE | 2023-03-28 14:58 | ED.DENTAL ---
HPI - Dental/Oral General Chief complaint: Dental/Oral Stated complaint: Dental Pain Time Seen by Provider: 03/28/23 14:44 Source: patient and RN notes reviewed Mode of arrival: ambulatory Limitations: no limitations History of Present Illness HPI Narrative: Patient presents today complaining of left lower dental pain since last night. She does have been known hole in 1 of her teeth. Denies fever, shortness of breath, difficulty swallowing. Currently rates her pain 8/10 and has been using Orajel and Tylenol without much relief. She does not currently have a dentist. Related Data Home Medications Medication Instructions Recorded Confirmed trazodone 50 mg tablet 50 mg PO DAILY 10/18/20 08/09/22 ferrous sulfate 325 mg (65 mg 325 mg PO DAILY 08/01/22 08/01/22 iron) tablet prenat.vits,hsavon,pzr-tkqa-dmfyq 1 tablet PO DAILY 08/01/22 08/01/22 norethindrone 1 mg-ethinyl tablet 03/28/23 estradiol 20 mcg (21)-iron 75 mg (7) tablet ([place] Fe 05/17 (28)) sertraline 50 mg tablet mg 03/28/23 Allergies Allergy/AdvReac Type Severity Reaction Status Date / Time Sulfa (Sulfonamide Allergy Unknown HIVES Verified 03/28/23 14:37 Antibiotics) Review of Systems Review of Systems: CONSTITUTIONAL: Denies body aches, fever, chills, or sweats. EYES: Denies visual changes, redness, or discharge. ENT: Denies rhinorrhea, congestion, sore throat, or otalgia.+ tooth pain CARDIOVASCULAR: Denies chest pain, palpitations, or edema. RESPIRATORY: Denies cough or dyspnea. GASTROINTESTINAL: Denies abdominal pain, nausea, vomiting, or diarrhea. GENITOURINARY: Denies dysuria or hematuria. SKIN: Denies rash, itching, or wounds. MUSCULOSKELETAL: Denies back pain, joint pain, or myalgia. NEUROLOGIC: Denies headache, numbness, tingling, or weakness. PSYCH: Denies depression or anxiety. [facility] Past Medical History Medical History Anxiety and depression Endometriosis PTSD (post-traumatic stress disorder) Smoker Strep pharyngitis UTI (urinary tract infection) Wrist fracture Surgical History Surgical History No history of previous surgery Family History Family History Father Myocardial infarct Sibling Heart murmur Grandparent Diabetes mellitus Social History Social History Smoking packs per day: 1 Smoking cigarettes per day: 20.0 Years smoked: 10 Smoking pack-years: 10.00 Smoking status: Current every day smoker Tobacco type: cigarettes Second hand tobacco smoke exposure: Yes Substance use: never Lack of Transportation: No Lack of Food: Never True Current Housing: I Have Housing Concerned About Future Housing: No Difficulty Paying Gas/Electric Bills: No Difficulty Paying for Meds: No Currently Unemployed: No Education: Grade School Difficulty w/ Childcare or Family Care: No Gender identity (if verbalized by the patient): Female Spiritual care concerns: No Comments At time of signature, I have reviewed and agree with nursing past medical, surgical, social and family history unless otherwise noted. Please see nursing chart for further information. There is no relevant family history pertinent to the presenting complaint Exam Narrative: GENERAL: Well-appearing, well-nourished, and in mild pain distress. HEAD: Normocephalic, atraumatic. EYES: EOMI. No redness or drainage. Conjunctivae normal. ENT: Mucous membranes pink and moist. Dental carroll in lateral portion of tooth 18. Gums appear normal. No trismus. No sublingual swelling or tenderness. No facial swelling appreciated. NECK: Normal AROM. Supple. No lymphadenopathy. CHEST: No respiratory distress. EXTREMITIES: Normal range of motion. No edema. SKIN: Warm, dry, no rash. Capilla
== END 2023-03-28 15:05 | disposition home or self-care (01) ==
PROVIDERS: Emergency Provider Nurse Practitioner
DX: K02.9 Dental caries, unspecified (principal); F17.210 Nicotine dependence, cigarettes, uncomplicated; N80.9 Endometriosis, unspecified; F41.9 Anxiety disorder, unspecified; F32.A Depression, unspecified
CPT/HCPCS: 99213; G0463

== ENCOUNTER 2023-05-11 18:57 | Emergency (ER) | payer OTHER, SELFPAY ==
[2023-05-11 19:06] VITALS: BP 125/76; PULSE 91; RESP 16; TEMP 37.2; O2SAT 99
--- NOTE | 2023-05-11 19:23 | ED.URI ---
HPI - URI/Sore Throat General Chief Complaint: Upper Respiratory Infection Stated Complaint: bodyaches,loss taste,sore throat, bad migraine Time Seen by Provider: 05/11/23 19:25 History of Present Illness HPI Narrative: 28-year-old female presenting for complaint of sore throat, headache, cough and congestion, body aches and fever. Onset 3 days. Reports Temp up to 101.7. Taking Tylenol, ibuprofen, and sudafed. Denies n/v/d, lethargy, sob, wheezing. Denies sick contacts. Related Data Home Medications Medication Instructions Recorded Confirmed trazodone 50 mg tablet 50 mg PO DAILY 10/18/20 08/09/22 norethindrone 1 mg-ethinyl 1 tablet PO DAILY 03/28/23 estradiol 20 mcg (21)-iron 75 mg (7) tablet ([place] Fe 05/17 (28)) sertraline 50 mg tablet 50 mg PO DAILY 03/28/23 Allergies Allergy/AdvReac Type Severity Reaction Status Date / Time Sulfa (Sulfonamide Allergy Unknown HIVES Verified 05/11/23 19:15 Antibiotics) Review of Systems Review of Systems: per HPI [facility] Past Medical History Medical History Anxiety and depression Endometriosis PTSD (post-traumatic stress disorder) Smoker Strep pharyngitis UTI (urinary tract infection) Wrist fracture Surgical History Surgical History No history of previous surgery Family History Family History Father Myocardial infarct Sibling Heart murmur Grandparent Diabetes mellitus Social History Social History Smoking packs per day: 1 Smoking cigarettes per day: 20.0 Years smoked: 10 Smoking pack-years: 10.00 Smoking status: Current every day smoker Tobacco type: cigarettes Second hand tobacco smoke exposure: Yes Substance use: never Lack of Transportation: No Lack of Food: Never True Current Housing: I Have Housing Concerned About Future Housing: No Difficulty Paying Gas/Electric Bills: No Difficulty Paying for Meds: No Currently Unemployed: No Education: Grade School Difficulty w/ Childcare or Family Care: No Gender identity (if verbalized by the patient): Female Spiritual care concerns: No Exam Narrative: GENERAL: Ill-appearing, no acute distress. EYES: conjunctivae clear ENT: Mucous membranes moist. TMs pearly sanabria with normal light reflex bilaterally; no tragal tenderness. Oropharynx erythematous without lesions. Tonsils enlarged and without exudate. No drooling, no hoarseness, no trismus, uvula midline. No tripod positioning, hot potato voice, or soft palate swelling. NECK: Supple. No lymphadenopathy CHEST: Clear to auscultation, breath sounds equal. No respiratory distress, speaks in full sentences. HEART: Regular rate and rhythm. No murmur heard. SKIN: Warm, dry, no rash. NEURO: Alert and oriented x3. Course Course Emergency Course: Patient is aware of diagnosis, understands and agrees to treatment plan. Anticipatory guidance given. Patient agrees to follow-up as directed and is aware of reasons to seek care at the emergency department. Portions of this record may have been created with voice recognition software Level of Care: Express Care Visit Vital Signs Vital signs: Vital Signs Temperature 98.9 F 05/11/23 19:06 Pulse Rate 91 05/11/23 19:06 Respiratory Rate 16 05/11/23 19:06 Blood Pressure 125/76 05/11/23 19:06 Pulse Oximetry 99 05/11/23 19:06 Oxygen Delivery Room Air 05/11/23 19:06 Temperature 98.9 F 05/11/23 19:06 Pulse Rate 91 05/11/23 19:06 Respiratory Rate 16 05/11/23 19:06 Blood Pressure 125/76 05/11/23 19:06 Pulse Oximetry 99 05/11/23 19:06 Oxygen Delivery Room Air 05/11/23 19:06 MDM - URI/Sore Throat MDM Narrative Medical decision making narrative: Neg flu, covid, strep result reviewed wi
== END 2023-05-11 19:45 | disposition home or self-care (01) ==
PROVIDERS: Emergency Provider Nurse Practitioner Family
DX: J02.0 Streptococcal pharyngitis (principal); Z20.822 Contact with and (suspected) exposure to COVID-19; F17.210 Nicotine dependence, cigarettes, uncomplicated; N80.9 Endometriosis, unspecified; F41.9 Anxiety disorder, unspecified; F32.A Depression, unspecified; F43.10 Post-traumatic stress disorder, unspecified
CPT/HCPCS: 87081; 87147; 87426; 87804; 87880; 99213; G0463

== ENCOUNTER 2023-05-19 22:13 | Emergency (ER) | payer OTHER, SELFPAY ==
[2023-05-19 22:15] VITALS: BP 140/109; PULSE 100; RESP 20; TEMP 36.4; O2SAT 100
--- NOTE | 2023-05-20 01:23 | PC.NURSE ---
Patient called the nurse to room eleven and asked how long her ED visit was going to be. Nursing staff explained there was no definitive timeline to any ED visit. Patient stated that she wanted to leave and that she needed to get her kids and she will call her surgeon in the morning. EDP JARRETT sampson.
[2023-05-20 01:26] VITALS: BP 130/74; PULSE 68; RESP 17; TEMP 36.6; O2SAT 99
== END 2023-05-20 01:20 | disposition left against medical advice (07) ==
DX: M25.552 Pain in left hip (principal)
CPT/HCPCS: 99199

== ENCOUNTER 2023-07-16 12:11 | Emergency (ER) | payer OTHER, SELFPAY ==
[2023-07-16 12:13] VITALS: BP 123/81; PULSE 78; RESP 16; TEMP 36.4; O2SAT 100
--- NOTE | 2023-07-16 14:25 | ED.DENTAL ---
HPI - Dental/Oral General Chief complaint: Dental/Oral Stated complaint: abscess Time Seen by Provider: 07/16/23 13:52 History of Present Illness HPI Narrative: 28-year-old female presenting to the ED for evaluation of worsening dental pain. Patient reports he does have a prior history of dental pain but the current pain started approximately 4:00 a.m. this morning. Patient has taken Tylenol and ibuprofen without any significant pain control. Related Data Home Medications Medication Instructions Recorded Confirmed trazodone 50 mg tablet 50 mg PO DAILY 10/18/20 08/09/22 norethindrone 1 mg-ethinyl 1 tablet PO DAILY 03/28/23 estradiol 20 mcg (21)-iron 75 mg (7) tablet (Blisovi Fe 05/17 (28)) sertraline 50 mg tablet 50 mg PO DAILY 03/28/23 Allergies Allergy/AdvReac Type Severity Reaction Status Date / Time Sulfa (Sulfonamide Allergy Unknown HIVES Verified 05/19/23 22:18 Antibiotics) Review of Systems Review of Systems: All systems reviewed & are unremarkable except as noted in HPI and below PMFSH Past Medical History Medical History Anxiety and depression Endometriosis PTSD (post-traumatic stress disorder) Smoker Strep pharyngitis UTI (urinary tract infection) Wrist fracture Surgical History Surgical History No history of previous surgery Family History Family History Father Myocardial infarct Sibling Heart murmur Grandparent Diabetes mellitus Social History Social History Smoking packs per day: 1 Smoking cigarettes per day: 20.0 Years smoked: 10 Smoking pack-years: 10.00 Smoking status: Current every day smoker Tobacco type: cigarettes Second hand tobacco smoke exposure: Yes Substance use: never Lack of Transportation: No Lack of Food: Never True Current Housing: I Have Housing Concerned About Future Housing: No Difficulty Paying Gas/Electric Bills: No Difficulty Paying for Meds: No Currently Unemployed: No Education: Grade School Difficulty w/ Childcare or Family Care: No Gender identity (if verbalized by the patient): Female Spiritual care concerns: No Exam Narrative: APPEARANCE: Well appearing, no pain, no distress, well-nourished. HEAD: normocephalic, atraumatic. EYES: PERRLA/EOMI, conjunctivae clear. NOSE: Normal no drainage EARS:TMS clear with good light reflex. THROAT: Pharynx clear, no exudate. No abscess NECK: Supple. No adenopathy, no masses. RESPIRATORY: Airway patent, respirations nonlabored. Clear to auscultation bilaterally, no rales, rhonchi, wheezing. CARDIOVASCULAR: Regular rate and rhythm without murmurs rubs or gallops. ABDOMINAL: Soft, nontender, nondistended, normal bowel sounds MUSCULOSKELETAL: Moves all extremities. Strength/ROM intact, No edema, No calf tenderness. NEURO: Alert. Cranial nerves II through XII intact. Grossly SKIN: Warm, dry. Normal Color Course Course Emergency Course: Patient was discharged home with antibiotics and medications for pain control. Vital Signs Vital signs: Vital Signs Temperature 97.6 F 07/16/23 12:13 Pulse Rate 78 07/16/23 12:13 Respiratory Rate 16 07/16/23 12:13 Blood Pressure 123/81 07/16/23 12:13 Pulse Oximetry 100 07/16/23 12:13 Oxygen Delivery Room Air 07/16/23 12:13 Temperature 97.7 F 07/16/23 15:31 Pulse Rate 67 07/16/23 15:31 Respiratory Rate 20 07/16/23 15:31 Blood Pressure 152/116 H 07/16/23 15:31 Pulse Oximetry 98 07/16/23 15:31 Oxygen Delivery Room Air 07/16/23 12:13 MDM - Dental/Oral MDM Narrative Medical decision making narrative: 28-year-old female presenting ED for evaluation worsening dental pain. No abscess amenable to drainage. No trismus. Patient was started on antibiotics in the
[2023-07-16] MEDS: AMOXICILLIN/CLAVULANATE K 875-125 MG TAB 1 TABLET PO (14:56)
[2023-07-16] MEDS: HYDROcodone/acetaminophen (*CRX) 5-325 MG TABLET 1 TAB PO (14:56)
[2023-07-16] MEDS: KETOROLAC 30 MG/ML VIAL (*BKC) IM (14:56)
[2023-07-16 15:31] VITALS: BP 152/116; PULSE 67; RESP 20; TEMP 36.5; O2SAT 98
== END 2023-07-16 16:21 | disposition home or self-care (01) ==
PROVIDERS: Emergency Provider Emergency Medicine
DX: K08.89 Other specified disorders of teeth and supporting structures (principal); N80.9 Endometriosis, unspecified; F41.9 Anxiety disorder, unspecified; F32.A Depression, unspecified; F43.10 Post-traumatic stress disorder, unspecified; F17.210 Nicotine dependence, cigarettes, uncomplicated; Z87.440 Personal history of urinary (tract) infections
CPT/HCPCS: 96372; 99283; A9270; J1885

== ENCOUNTER 2023-08-01 11:05 | Emergency (ER) | payer OTHER, SELFPAY ==
[2023-08-01] VITALS (7 sets, daily range): BP systolic 114–134; BP diastolic 62–90; PULSE 75–100; RESP 14–22; TEMP 36.6; O2SAT 96–100
--- NOTE | ~2023-08-01 | XR_ITS ---
EXAMINATION: XR chest 2V DATE: 08/01/2023 13:47 INDICATION: Right chest pain. TECHNIQUE: Frontal and lateral views of the chest were obtained. COMPARISON: None. FINDINGS: There is no pneumonia, pleural effusion, or pneumothorax. The heart size is normal. IMPRESSION: 1. No acute cardiopulmonary disease. Reviewed, dictated and finalized at location A.
--- NOTE | ~2023-08-01 | CT_ITS ---
EXAMINATION: CTA chest PE protocol DATE: 08/01/2023 15:27 INDICATION: R sided chest, breast, axillary pain TECHNIQUE: Computed tomography angiography (CTA) of the chest was performed with 100 mL Omnipaque-350 intravenous contrast timed to evaluate the pulmonary arteries. Coronal maximum intensity projection 3D-reconstructions were created by the technologist. The dose-length product (DLP) was 174.82 mGy-cm. Automated exposure control and iterative reconstruction technique were employed. COMPARISON: X-ray chest same date; [facility]PA 07/13/2022. FINDINGS: Lung parenchyma and airways: Minimal dependent atelectasis. 4 mm peripheral left upper lobe nodule, l ikely granuloma. Patent airways. Pleura: Unremarkable. Thoracic inlet, axillae and chest wall: 1.8 cm asymmetric nodular soft tissue density in the upper ou ter quadrant of the right breast. Thoracic aorta: No significant dilation. No dissection. Mediastinum: Normal. Heart and pericardium: Normal. Coronary artery calcifications: Absent. Upper abdomen: No significant finding. Bones: No acute osseous finding. Pulmonary arteries: Study quality: Adequate. No pulmonary emboli detected. IMPRESSION: No CT evidence of acute pulmonary embolus. No acute process detected in the chest. 1.8 cm nodular soft tissue density in the upper outer right breast. Recommend nonemergent but timely diagnostic mammography and breast ultrasound. Reviewed, dictated and finalized at location K. IMPRESSION: No CT evidence of acute pulmonary embolus. No acute process detected in the chest. 1.8 cm nodular soft tissue density in the upper outer right breast. Recommend n onemergent but timely diagnostic mammography and breast ultrasound.
--- NOTE | 2023-08-01 13:36 | ECG_ITS ---
Measurements Intervals [place] Rate: 75 P: -20 CO: 131 QRS: 72 QRSD: 86 T: 17 QT: 380 QTc: 426 Interpretive Statements SINUS RHYTHM COMPARED TO ECG 07/13/2022 10:03:07 NO SIGNIFICANT CHANGES Electronically Signed On 08-02-2023 13:18:40 CDT by Melvina Huerta M.D.
--- NOTE | 2023-08-01 13:47 | ED.GENADULT ---
HPI - General Adult General Chief complaint: Unspecified Stated complaint: pain on right side Time Seen by Provider: 08/01/23 12:56 History of Present Illness HPI narrative: This is a 28-year-old female presenting ED with chief complaint of right chest pain. Patient says that the right-sided pain started 5 days ago. It is in her right armpit and over her right breast. It hurts to take deep inspirations and hurts when she lies her child on her chest. It also hurts to move her arm. She does not have any overlying skin changes. Patient tried to be seen for this at [facility] yesterday but said the wait was too long and she left. She did check her lab results online and saw she had a wbc count of 11. She thought she had an infection so started taking some antibiotics she had for a dental infection. patient does not breast feed. Patient denies fevers, chills, abdominal pain, lower extremity edema, history of blood clots, surgeries or immobilization. Related Data Home Medications Medication Instructions Recorded Confirmed trazodone 50 mg tablet 50 mg PO DAILY 10/18/20 08/09/22 norethindrone 1 mg-ethinyl 1 tablet PO DAILY 03/28/23 estradiol 20 mcg (21)-iron 75 mg (7) tablet (Blisovi Fe 05/17 (28)) sertraline 50 mg tablet 50 mg PO DAILY 03/28/23 Allergies Allergy/AdvReac Type Severity Reaction Status Date / Time Sulfa (Sulfonamide Allergy Unknown HIVES Verified 08/01/23 13:31 Antibiotics) [facility] Past Medical History Medical History Anxiety and depression Endometriosis PTSD (post-traumatic stress disorder) Smoker Strep pharyngitis UTI (urinary tract infection) Wrist fracture Surgical History Surgical History No history of previous surgery Family History Family History Father Myocardial infarct Sibling Heart murmur Grandparent Diabetes mellitus Social History Social History Smoking packs per day: 1 Smoking cigarettes per day: 20.0 Years smoked: 10 Smoking pack-years: 10.00 Smoking status: Current every day smoker Tobacco type: cigarettes Second hand tobacco smoke exposure: Yes Substance use: never Lack of Transportation: No Lack of Food: Never True Current Housing: I Have Housing Concerned About Future Housing: No Difficulty Paying Gas/Electric Bills: No Difficulty Paying for Meds: No Currently Unemployed: No Education: Grade School Difficulty w/ Childcare or Family Care: No Gender identity (if verbalized by the patient): Female Spiritual care concerns: No Exam Narrative: APPEARANCE: No apparent distress. Head: atraumatic. EYES: EOMI, NOSE: Atraumatic NECK: Trachea midline RESPIRATORY: No increased rate of breathing clear to auscultation CARDIOVASCULAR: RRR, no peripheral edema ABDOMINAL: Non-distended Soft tender Breast exam: Small point area of tenderness in the right axilla just lateral to 9:00 a.m. on the right breast, also an area nodularity at 12:00 p.m. in the right breast with some tenderness. No overlying skin changes or fluctuant masses. MUSCULOSKELETAl: No obvious deformities NEURO: Alert. Moving 4/4 extremities SKIN:: Warm, dry. Normal color PSYCHIATRIC: Normal affect Course Vital Signs Vital signs: Vital Signs Temperature 97.8 F 08/01/23 11:10 Pulse Rate 100 08/01/23 11:10 Respiratory Rate 18 08/01/23 11:10 Blood Pressure 114/62 08/01/23 11:10 Pulse Oximetry 96 08/01/23 11:10 Temperature 97.8 F 08/01/23 11:10 Pulse Rate 100 08/01/23 11:10 Respiratory Rate 18 08/01/23 11:10 Blood Pressure 114/62 08/01/23 11:10 Pulse Oximetry 96 08/01/23 11:10 Medical Decision Making MDM Narrative Medical decision making narrative: -Course: 28-year-old fem
[2023-08-01] MEDS: SODIUM CHLORIDE 0.9% IV 1,000 ML 999 ML IV CONT (14:05)
[2023-08-01] MEDS: ACETAMINOPHEN 500 MG TABLET 1000 MG PO (14:06)
[2023-08-01] MEDS: IBUPROFEN 400 MG TABLET 800 MG PO (14:07)
[2023-08-01] MEDS: methocarbamoL 750 MG TABLET 1500 MG PO (14:11)
[2023-08-01 14:12] LABS: Basophils Percent Auto 0.3 % (0.2-1.2); Eosinophils Absolute Auto 0.1 K/mm3 (0-0.3); Eosinophils Percent Auto 1.1 % (0-4.4); Hemoglobin 14.7 g/dL (12.0-15.0); Immature Granulocyte Absolute 0.02 K/mm3 (0.00-0.031); Immature Granulocyte Percent A 0.3 % (0-0.5); Lymphocytes Absolute Auto 1.69 K/mm3 (0.9-3.2); Lymphocytes Percent Auto 23.3 % (18.3-44.2); Mean Corpuscular HGB Conc 32.7 g/dl (32-36); Mean Corpuscular Hemoglobin 29.1 pg (26-34); Mean Corpuscular Volume 89.1 fl (80-100); Mean Platelet Volume 10.7 fl (7.4-10.4); Monocytes Absolute Auto 0.5 K/mm3 (0.1-0.6); Monocytes Percent Auto 6.6 % (2.6-8.5); Neutrophils Percent Auto 68.4 % (45.5-73.1); Platelet Count Result 372 k/mm3 (150-375); Red Blood Count 5.05 M/mm3 (4.2-5.4); Red Cell Distribution Width 13.8 % (11.5-14.5); White Blood Count 7.3 K/mm3 (4.5-10.0)
[2023-08-01 14:16] LABS: Appearance Urine Clear (Clear); Bacteria Urine None Seen /hpf; Bilirubin Urine Negative (Negative); Blood Urine 3+ (Negative); Color Urine Yellow (Yellow); Glucose Urine UA Negative (Negative); Ketones Urine Negative (Negative); Leukocyte Esterase Ur 2+ LEU/UL (Negative); Nitrate Urine Negative (Negative); Non Pathogenic Casts 0-2; Protein Urine Negative (Negative); RBC Urine 21-50 /hpf (0-2); Specific Grav Ur 1.011 (1.001-1.035); Squamous Epithelial Cell Urine Moderate /hpf (Few); pH Urine 6.5 (5.0-9.0)
[2023-08-01 14:28] LABS: Add Urine Microscopic? YES
[2023-08-01 14:33] LABS: Troponin I < 0.012 ng/mL (0.000-0.034)
[2023-08-01 14:36] LABS: D Dimer 0.89 ug/mL (<0.48)
[2023-08-01 14:48] LABS: Influenza A QL RT-PCR Negative (Negative); Influenza B QL RT-PCR Negative (Negative); RSV RNA, RT-PCR Negative (Negative); SARS-CoV-2 RNA PCR Negative (Negative)
[2023-08-01 14:57] LABS: Alanine Aminotransferase 18 U/L (6-35); Albumin Level 4.5 g/dL (3.5-5.1); Alkaline Phosphatase 90 U/L (38-126); Anion Gap 6 mmol/L (4-12); Aspartate Amino Transferase 27 U/L (14-36); Bilirubin,Total 0.5 mg/dL (0.2-1.3); Blood Urea Nitrogen 6 mg/dL (7-17); Calcium 9.5 mg/dL (8.4-10.2); Carbon Dioxide 26 mmol/L (22-30); Chloride 102 mmol/L (98-107); Estimated CRCL calculation 87 ml/min; Estimated Glomerular Filt Rate > 60; Glucose 84 mg/dL (65-110); Potassium 4.3 mmol/L (3.4-5.0); Sodium 134 mmol/L (137-145)
[2023-08-01 15:04] LABS: NT Pro B Type Natriuretic Pept < 20 pg/mL (19.9-100)
--- NOTE | 2023-08-07 12:24 | PC.NURSE ---
LATE ENTRY This note is being entered to document information to the patient's record. The following information was omitted on [08/01/23], by [Ashley Helm RN]. NS stop time was 1500.
== END 2023-08-01 16:32 | disposition home or self-care (01) ==
PROVIDERS: Emergency Provider Emergency Medicine
DX: N63.11 Unspecified lump in the right breast, upper outer quadrant (principal); F43.10 Post-traumatic stress disorder, unspecified; F41.8 Other specified anxiety disorders; Z20.822 Contact with and (suspected) exposure to COVID-19; F17.210 Nicotine dependence, cigarettes, uncomplicated
CPT/HCPCS: 36415; 71046; 71275; 80053; 81001; 81025; 83880; 84484; 85025; 85380; 87086; 87637; 93005; 96360; 99284; A9270; J7030; Q9967

== ENCOUNTER 2023-08-11 11:30 | Outpatient (CLI) | payer OTHER, SELFPAY ==
--- NOTE | ~2023-08-11 | XR_ITS ---
Right Shoulder Technique: AP and scapular Y views were obtained. Clinical History: Pain Findings: No fracture or dislocation is seen. Osseous alignment is anatomic. The glenohumeral and acr omioclavicular joint spaces are preserved. Soft tissues are unremarkable. Impression: Unremarkable right shoulder radiographs. Reviewed, dictated and finalized at [facility]. Impression: Unremarkable right shoulder radiographs.
== END 2023-08-11 11:31 | disposition home or self-care (01) ==
LOC: ANHIMG 11:33
PROVIDERS: PCP Emergency Medicine; Visit Provider Emergency Medicine
DX: M25.511 Pain in right shoulder (principal)
CPT/HCPCS: 73030

== ENCOUNTER 2023-08-12 09:48 | Outpatient (CLI) | payer OTHER, SELFPAY ==
--- NOTE | ~2023-08-12 | MMUS_ITS ---
EXAMINATION: MM diagnostic melody RT w delisa, US breast RT limited HISTORY: Palpable right breast lump TECHNIQUE: Additional 3-D tomosynthesis images of the right breast were performed and synthetic 2-D i mages were generated. CAD analysis was submitted and interpreted. High resolution Limited right breas t ultrasound was performed. COMPARISON: None BREAST PARENCHYMAL COMPOSITION: Dense: The breasts are heterogeneously dense, which may obscure small masses FINDINGS: MAMMOGRAPHIC FINDINGS: There are no discrete masses or architectural distortion. No suspicious calcifications in the right b reast. There is focal fibroglandular tissue in the upper outer quadrant of the right breast which is less dense with spot compression views, compatible with superimposed fibroglandular tissue. ULTRASOUND: Limited right breast ultrasound: Normal heterogeneous echotexture. No suspicious masses to suggest ma lignancy. At 10:00, 8 cm from the nipple in the area of palpable concern there is a probable 8 mm intramammary lymph node. No evidence for malignancy. IMPRESSION: 1. No evidence for malignancy in the right breast. Probable benign findings. 2. Recommend 6 month follow-up Limited right breast ultrasound BI-RADS category 3, probably benign findings. Reviewed, dictated and finalized at location B. IMPRESSION: 1. No evidence for malignancy in the right breast. Probable benign findings. 2. Recommend 6 month follow-up Limited right breast ultrasound BI-RADS category 3, probably benign findings.
== END 2023-08-12 09:49 | disposition home or self-care (01) ==
LOC: CHSIMG 09:49
PROVIDERS: PCP Emergency Medicine; Visit Provider Emergency Medicine
DX: N63.11 Unspecified lump in the right breast, upper outer quadrant (principal)
CPT/HCPCS: 76642; 77061; 77065; G0279

== ENCOUNTER 2023-09-11 14:57 | Outpatient (CLI) | payer OTHER, SELFPAY ==
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
== END 2023-09-11 14:58 | disposition home or self-care (01) ==
LOC: ANHIMG 15:00
PROVIDERS: PCP Emergency Medicine; Visit Provider Emergency Medicine
DX: M79.652 Pain in left thigh (principal); Z98.890 Other specified postprocedural states; Z87.828 Personal history of other (healed) physical injury and trauma
CPT/HCPCS: 73552

== ENCOUNTER 2023-09-29 16:46 | Emergency (ER) | payer OTHER, SELFPAY ==
--- NOTE | ~2023-09-29 | XR_ITS ---
EXAM: XR ankle LT min 3V, XR foot LT min 3V DATE: 09/29/2023 17:12 HISTORY: fall, pain, swelling LATERAL ANKLE . COMPARISON: None available. FINDINGS: Normal mineralization. Oblique nondisplaced fracture of the distal fibula (Posey type A). No lytic or blastic lesion. Joint spaces are maintained. No erosion or periosteal change. Soft tissue swelling over the lateral malleolus. IMPRESSION: Oblique nondisplaced fracture of the lateral malleolus with overlying soft tissue swellin g. Reviewed, dictated and finalized at location K. IMPRESSION: Oblique nondisplaced fracture of the lateral malleolus with overlyi ng soft tissue swelling.
[2023-09-29 16:49] VITALS: BP 135/68; PULSE 95; RESP 20; TEMP 36.6; O2SAT 98
--- NOTE | 2023-09-29 16:50 | ED.LOWEXIN ---
HPI - Extremity Injury (Lower) General Chief Complaint: Extremity Injury, Lower Stated Complaint: left ankle injury Time Seen by Provider: 09/29/23 16:50 Source: patient Mode of arrival: wheelchair Limitations: no limitations History of Present Illness HPI Narrative: Patient is a 28 y/o female who presents to the ED with c/o L ankle pain. Patient reports she slipped at work this morning while stepping off of her truck and rolled her left ankle. C/o pain and swelling to her lateral left ankle extending into her foot. Unable to bear weight. Took tylenol at home prior to arrival w/o relief. Denies numbness. Denies any other injuries. Related Data Home Medications Medication Instructions Recorded Confirmed trazodone 50 mg tablet 50 mg PO DAILY 10/18/20 08/09/22 norethindrone 1 mg-ethinyl 1 tablet PO DAILY 03/28/23 estradiol 20 mcg (21)-iron 75 mg (7) tablet (Blisovi Fe 05/17 (28)) sertraline 50 mg tablet 50 mg PO DAILY 03/28/23 Allergies Allergy/AdvReac Type Severity Reaction Status Date / Time Sulfa (Sulfonamide Allergy Unknown HIVES Verified 09/29/23 16:51 Antibiotics) Review of Systems Review of Systems: CONSTITUTIONAL: Denies fever, chills, or sweats. MUSCULOSKELETAL: see HPI. NEUROLOGIC: Denies headache, dizziness, numbness, or weakness. All systems reviewed & are unremarkable except as noted in HPI and below PMFSH Past Medical History Medical History Anxiety and depression Endometriosis PTSD (post-traumatic stress disorder) Smoker Strep pharyngitis UTI (urinary tract infection) Wrist fracture Surgical History Surgical History No history of previous surgery Family History Family History Father Myocardial infarct Sibling Heart murmur Grandparent Diabetes mellitus Social History Social History Smoking packs per day: 1 Smoking cigarettes per day: 20.0 Years smoked: 10 Smoking pack-years: 10.00 Smoking status: Current every day smoker Tobacco type: cigarettes Second hand tobacco smoke exposure: Yes Substance use: never Lack of Transportation: No Lack of Food: Never True Current Housing: I Have Housing Concerned About Future Housing: No Difficulty Paying Gas/Electric Bills: No Difficulty Paying for Meds: No Currently Unemployed: No Education: Grade School Difficulty w/ Childcare or Family Care: No Gender identity (if verbalized by the patient): Female Spiritual care concerns: No Exam Narrative: GENERAL: Uncomfortable appearing, obese with BMI of 35.4, non-toxic, in mild acute distress d/t pain HEAD: Normocephalic, atraumatic. RESPIRATORY: Airway patent, respirations nonlabored. CARDIOVASCULAR: Regular rate and rhythm. Pedal pulses strong and easily palpable MUSCULOSKELETAL: Moves all extremities. No gross deformities. Moderate swelling and focal tenderness to L lateral malleoli. Tenderness extending along lateral base of L dorsal foot. No significant tenderness along medial malleoli. No ecchymosis. Sensation is intact throughout foot and ankle. Capillary refill intact throughout toes. SKIN: Warm, dry, normal color. NEURO: A&O X3. Speech clear. No ataxic movements. PSYCHIATRIC: Appropriate mood and affect. Normal interaction. Course Vital Signs Vital signs: Vital Signs Temperature 97.8 F 09/29/23 16:49 Pulse Rate 95 09/29/23 16:49 Respiratory Rate 09/29/23 16:49 Blood Pressure 135/68 09/29/23 16:49 Pulse Oximetry 98 09/29/23 16:49 Oxygen Delivery Room Air 09/29/23 16:49 Temperature 97.8 F 09/29/23 16:49 Pulse Rate 95 09/29/23 16:49 Respiratory Rate 09/29/23 16:49 Blood Pressure 135/68 09/29/23 16:49 Pulse Oximetry 98 09/29/23 16:49 O
[2023-09-29] MEDS: oxyCODONE HCL (*CRX) 5 MG TAB IR PO (16:56)
[2023-09-29] MEDS: KETOROLAC (*BKC) 60 MG/2 ML VIAL IM (16:57)
== END 2023-09-29 18:23 | disposition home or self-care (01) ==
PROVIDERS: Emergency Provider Physician Assistant; PCP Emergency Medicine
DX: S82.65XA Nondisplaced fracture of lateral malleolus of left fibula, initial encounter for closed fracture (principal); W01.0XXA Fall on same level from slipping, tripping and stumbling without subsequent striking against object, initial encounter; F41.8 Other specified anxiety disorders; F17.210 Nicotine dependence, cigarettes, uncomplicated
CPT/HCPCS: 29515; 73610; 73630; 96372; 99284; A9270; J1885

== ENCOUNTER 2023-11-04 13:01 | Emergency (ER) | payer OTHER, SELFPAY ==
--- NOTE | 2023-11-04 13:08 | ED.SKABFB ---
HPI - Skin/Abscess/Foreign Bdy General Chief complaint: Wound/Laceration Stated complaint: bug bites on body Time Seen by Provider: 11/04/23 13:29 Source: patient and RN notes reviewed Mode of arrival: ambulatory Limitations: no limitations History of Present Illness HPI narrative: 28-year-old female presents with concern for but bites. She reports itchy bug bites with mild swelling and scabs in several areas. She reports a bite on her breast has become tender, larger, red. She denies fever, body aches, chills, sweats. MD complaint: insect bite/sting Related Data Home Medications Medication Instructions Recorded Confirmed norethindrone 1 mg-ethinyl 1 tablet PO DAILY 03/28/23 11/04/23 estradiol 20 mcg (21)-iron 75 mg (7) tablet (Blisovi Fe 05/17 (28)) Allergies Allergy/AdvReac Type Severity Reaction Status Date / Time Sulfa (Sulfonamide Allergy Unknown HIVES Verified 11/04/23 13:16 Antibiotics) Review of Systems Review of Systems: CONSTITUTIONAL: Denies malaise, chills, sweats, or fever. EYES: Denies redness, or discharge. ENT: Denies rhinorrhea, congestion, swollen lips, swollen tongue CARDIOVASCULAR: Denies chest pain, palpitations, or edema. RESPIRATORY: Denies cough or dyspnea. GASTROINTESTINAL: Denies abdominal pain, nausea, vomiting SKIN: Reports skin itchy bug bites. Reports a bite on her left breast that is tender, red, getting larger. MUSCULOSKELETAL: Denies joint pain or myalgia. NEUROLOGIC: Denies headache. All systems reviewed & are unremarkable except as noted in HPI and below PMFSH Past Medical History Medical History Anxiety and depression Endometriosis PTSD (post-traumatic stress disorder) Smoker Strep pharyngitis UTI (urinary tract infection) Wrist fracture Surgical History Surgical History No history of previous surgery Family History Family History Father Myocardial infarct Sibling Heart murmur Grandparent Diabetes mellitus Social History Social History Smoking packs per day: 1 Smoking cigarettes per day: 20.0 Years smoked: 10 Smoking pack-years: 10.00 Smoking status: Current every day smoker Tobacco type: cigarettes Second hand tobacco smoke exposure: Yes Substance use: never Lack of Transportation: No Lack of Food: Never True Current Housing: I Have Housing Concerned About Future Housing: No Difficulty Paying Gas/Electric Bills: No Difficulty Paying for Meds: No Currently Unemployed: No Education: Grade School Difficulty w/ Childcare or Family Care: No Gender identity (if verbalized by the patient): Female Spiritual care concerns: No Comments At time of signature, agree with nursing past medical, surgical, social and family history. There is no relevant family history pertinent to the presenting complaint Exam Narrative: GENERAL: Well-appearing, well-nourished, and in no acute distress. HEAD: Normocephalic, atraumatic. EYES: PERRLA, conjunctivae clear, and EOMI. ENT: Mucous membranes moist. Oropharynx without edema, erythema or lesions. NECK: Supple. No lymphadenopathy CHEST: Clear to auscultation. No respiratory distress. HEART: Regular rate and rhythm. SKIN: Warm, dry. Scattered erythematous papules noted to the back, chest, arms. The left breast has a erythematous papule surrounded by approximately a 6 cm of erythema, tenderness. No fluctuation or drainage noted NEURO: Alert and oriented x3. PSYCH: Normal mood and affect Course Course Emergency Course: Patient is aware of diagnosis, understands and agrees to treatment plan. Anticipatory guidance given. Patient agrees to follow-up as directed and is aware of reasons to seek care at the emergency department. Bobby
[2023-11-04 13:09] VITALS: BP 116/78; PULSE 88; RESP 16; TEMP 36.8; O2SAT 100
== END 2023-11-04 13:47 | disposition home or self-care (01) ==
PROVIDERS: Emergency Provider Nurse Practitioner; PCP Emergency Medicine
DX: S20.162A Insect bite (nonvenomous) of breast, left breast, initial encounter (principal); L08.9 Local infection of the skin and subcutaneous tissue, unspecified; S20.469A Insect bite (nonvenomous) of unspecified back wall of thorax, initial encounter; S20.369A Insect bite (nonvenomous) of unspecified front wall of thorax, initial encounter; S40.862A Insect bite (nonvenomous) of left upper arm, initial encounter; S40.861A Insect bite (nonvenomous) of right upper arm, initial encounter; W57.XXXA Bitten or stung by nonvenomous insect and other nonvenomous arthropods, initial encounter; F17.210 Nicotine dependence, cigarettes, uncomplicated; N80.9 Endometriosis, unspecified
CPT/HCPCS: 99213; G0463

== ENCOUNTER 2024-08-13 23:59 | Emergency (ER) | payer OTHER, SELFPAY ==
--- NOTE | ~2024-08-13 | US_ITS ---
EXAMINATION: US abdomen limited DATE: 08/14/2024 07:35 INDICATION: Epigastric pain TECHNIQUE: Multiple grayscale and Doppler ultrasound images of the abdomen were obtained. COMPARISON: CT dated 09/15/2018 FINDINGS: The pancreatic head and body are normal in appearance. The pancreatic tail is not visualized. Liver has normal echogenicity and contour, with a smooth surface. No liver lesion identified. No intrahepat ic biliary duct dilation suspected. Portal venous flow was seen in the hepatopetal, normal direction and has normal Doppler waveform. Inferior vena cava is normal. The gallbladder is normal in appearanc e. There is no cholelithiasis. The common bile duct measures 3 mm, which is normal. Sonographic Murp hy sign was reported as negative by the sample display preparer.Visualized portion of the mid to upper right kidn ey demonstrates normal contour and echogenicity with no hydronephrosis. IMPRESSION: 1. Normal right upper quadrant ultrasound. Reviewed, dictated and finalized at location A.
--- OUTSIDE RECORDS SUMMARY | 2024-08-14 00:01 | XMS_ITS | Encounter Summary ---
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 Name Role Phone Macario Lopez MD Primary Care Provider [phone] Encounter Details Date Type Department Care Team (Latest Contact Info) Description 08/13/2024 Travel Social History Tobacco Use Types Packs/Day Years Used Date Smoking Tobacco: Every Day Cigarettes Passive Smoke Exposure: Past Smokeless Tobacco: Never Alcohol Use Standard Drinks/Week Comments Not Currently 0 (1 standard drink = 0.6 oz pur e alcohol) Comments No Sex and Gender Information Value Date Recorded Sex Assigned at Female 06/19/2024 12:34 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 Wish to be (Past 1 Month) No 08/13/2024 3:03 AM Nereida Padron RN Active 2. Non-Specific Active Suicidal Thoughts (Past 1 Month) No 08/13/2024 3:03 AM Nereida Padron RN Active 6. Suicidal Behavior (Lifetime) No 08/13/2024 3:03 AM Nereida Padron RN Active documented as of this encounter Plan of Treatment Not on file documented as of this encounter Visit Diagnoses Not on filedocumented in this encounter Care Teams Rotary Shear Cutter Relationship Specialty Start Date End Date Macario Lopez MD [address] [place] [id number] PCP - General FAMILY PRACTICE 08/23/23 documented as of this encounter
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
--- OUTSIDE RECORDS SUMMARY | 2024-08-14 00:03 | XMS_ITS | Clinical Summary ---
Author Organization [facility] Address [address] [place] [address] Care Team Providers Care Application Security Architect Name Role Phone Macario Lopez MD Primary Care Provider [phone] Source Comments [facility],non-owned Affiliates and Associated Physician Practices is amultiple site organization consisting of ambulatory clinics and hospital sitesin [place], [place], [place] and [place]. This disclosure is being madepursuant to the Care Everywhere program and may not contain all information available regarding this patient. Last updated 18.[facility] Allergies Active Allergy Reactions Criticality Noted Date Comments Sulfa Drugs Unknown 04/03/2022 Medications * Be aware that medications may not be up to date on this document. Alwaysverify current medications with the patient. traZODone (Desyrel) 50 MG tablet Take 1 (one) tablet by mouth at bedtime 30 tablet 07/11/19 23 Active plus iron (Natatab) 29-1 MG tablet Take 1 (one) tablet by mouth once daily 30 tablet 07/11/19 23 Active ferrous sulfate 325 (65 FE) MG tablet Take 1 (one) tablet by mouth once daily 100 tablet 07/11/19 23 Active nitrofurantoin monohyd macro crystals (Macrobid) 100 MG capsule Take 1 (one) capsule by mouth once daily 30 capsule 07/11/19 23 Active iron polysaccharides (Niferex 150) 150 MG capsule Take 1 (one) capsule by mouth once daily 100 capsule 07/25/19 23 Active Additional Information Patient not taking.Reported on 09/18/2023 nicotine (Nicoderm CQ) 14 MG/24HR patchIndications:Ni cotine Dependence Apply 1 (one) patch to skin once daily Reasons: Nicotine Addiction 28 patch 11 07/25/19 23 Active Additional Information Patient not taking.Reported on 09/18/2023 Blisovi FE 05/17 1-20 MG-MCG tablet 09/13/19 Active Active Problems Problem Noted Date Diagnosed Date growth restriction antepartum 07/24/2022 Anxiety disorder 07/10/2022 Depression affecting 07/10/2022 Recurrent UTI 07/10/2022 Family History Medical History Relation Name Comments Cancer - Breast Paternal Aunt Relation Name Status Comments Paternal Aunt Social History Tobacco Use Types Packs/Day Years Used Date Smoking Tobacco: Every Day Cigarettes Smokeless Tobacco: Current Tobacco Cessation:Ready to Q uit: Not Asked; Counseling Given: Not Answered Alcohol Use Standard Drinks/Week Comments Not Currently 0 (1 standard drink = 0.6 oz pur e alcohol) Comments No Sex and Gender Information Value Date Recorded Sex Assigned at Not on file Legal Sex Female 1:41 PM [employer] Gender Identity Not on file Sexual Orientation Not on file Last Filed Vital Signs Vital Sign Reading Time Taken Comments Blood Pressure 105/74 09/18/2023 10:01 AM CDT Pulse 83 09/18/2023 10:01 AM CDT Temperature 36.5 C (97.7 F) 09/18/2023 10:01 AM CDT Respiratory Rate - - Oxygen Saturation 97% 09/18/2023 10:01 AM CDT Inhaled Oxygen Concentration - - Weight 64.7 kg (142 lb 9.6 oz) 09/18/2023 10:01 AM CDT Height 154.9 cm (5' 1 ) 09/18/2023 10:01 AM CDT Body Mass Index 26.94 09/18/2023 10:01 AM CDT Plan of Treatment Health Maintenance Due Date Last Done Comments PAP SMEAR 1997 HEPATITIS C SCREENING 04/10/2015 DTAP/TDAP/TD VACCINES (1 - Tdap) 2016 HEPATITIS B VACCINE (1 of 3 - 19+ 3-dose series) 2016 PNEUMOCOCCAL VACCINE (1 of 2 - PCV) 2016 COVID-19 VACCINE (3 - 2023-2 5 season) 2023 08/16/2021, 07/19/2021 DEPRESSION SCREENING 04/28/2024 INFLUENZA VACCINE (Season Ended) 2024 ZOSTER VACCINE (1 of 2) 2047 HIV SCREENING Completed 06/04/2022, 02/15/2022 HIB VACCINE Aged Out No longer eligi ble based on patient's age to complete this topic HPV VACCINE Aged Out No longer eligi ble based on patient's age to complete this topic MENINGOCOCCAL (Group B) VACCINE SHARED DECISION-MAKING Aged Out No longer eligible based on patient's age to complete this topic MENINGOCOCCAL GROUPS A/C/Y/W VACCINE Aged Out No longer eligible b ased on patient's age to complete this topic Insurance [facility] Care Teams Application Security Architect Relationship Specialty Start Date End Date Macario Lopez MD [address] [place] [address] PCP - General Family Medicine 09/18/23
--- OUTSIDE RECORDS SUMMARY | 2024-08-14 00:03 | XMS_ITS | Clinical Summary ---
Author Organization [facility] Address [address] [place] [address] Care Team Providers Care Circular Knife Machine Cutter Name Role Phone Eduarda Valencia MD Unavailable [phone] Macario Lopez MD Primary Care Provider [phone] Allergies Active Allergy Reactions Criticality Noted Date Comments Sulfa (Sulfonamide Antibiotics) Hives Medium 05/30 Medications traZODone (DESYREL) 150 mg tabletIndicatio ns:insomnia associated with depression Take 1 tablet (150 mg total) by mouth nightly Active sertraline (ZOLOFT) 50 mg tablet sertraline 50 mg tablet Active Active Problems Problem Noted Date Diagnosed Date Nervousness(799.21) 08/07/2021 Depressive disorder 08/07/2021 Posttraumatic stress disorder 08/07/2021 COVID-19 05/08/2021 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 05/01/2021 Overview (05/01/2021): Added automatically from request for surgery [id number] Open fracture 07/07/2020 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 Immunizations Immunization Administration Dates Next Due Tdap 07/07/2020 Surgical History Surgery Date Site/Laterality Comments FRACTURE SURGERY 06/26/2020 - 07/26/2020 LAPAROSCOPIC ENDOMETRIOSIS FULGURATION 04/28/2018 - 03/30 Medical History Medical History Date Comments Cerebral palsy (HCC) Family History Medical History Relation Name Comments Heart attack Father Anesthesia problems Neg Hx Relation Name Status Comments Father Social History Tobacco Use Types Packs/Day Years Used Date Smoking Tobacco: Every Day Cigarettes 0.5 12.3 Started: 2012 Smokeless Tobacco: Never Tobacco Cessation:Ready to Q uit: No; Counseling Given: Yes Alcohol Use Standard Drinks/Week Comments Never 0 (1 standard drink = 0.6 oz pur e alcohol) AUDIT-C Answer Date Recorded Q1: How often do you have a drink containing alc ohol? Monthly or less 06/26/2021 Q2: How many drinks containi ng alcohol do you have on a typical day when you are drinking? 3 or 4 06/26/2021 Q3: How often do you have si x or more drinks on one occasion? Never 06/26/2021 Personal Safety Answer Date Recorded Have you ever been in or are you currently in a harmful physical or emotional relationship or is someone making you feel afraid or unsafe? 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 Gender Identity Not on file Sexual Orientation Not on file Obstetrics History Para Term AB IAB SAB Ectopic Multiple Livin g Live Births 1 Date Outcome GA Total Labor Labor/2nd/3rd Weight Sex Type Anes PTL Rina A1 A5 Name Clin Last Filed Vital Signs Vital Sign Reading Time Taken Comments Blood Pressure 118/85 12/16/2023 11:32 AM CDT Pulse 100 12/16/2023 11:32 AM CDT Temperature 36.8 C (98.2 F) 12/16/2023 11:32 AM CDT Respiratory Rate 16 12/16/2023 11:32 AM CDT Oxygen Saturation 96% 12/16/2023 11:32 AM CDT Inhaled Oxygen Concentration - - Weight 67 kg (147 lb 11.3 oz) 12/16/2023 11:32 A M CDT Height 154.9 cm (5' 1 ) 12/16/2023 11:32 AM CDT Body Mass Index 27.91 12/16/2023 11:32 AM CDT Plan of Treatment Health Maintenance Due Date Last Done Comments Cervical Cancer Screening 1997 Depression Screening 1997 Hepatitis C Screening 1997 Varicella Vaccines (1 of 2 - 13+ 2-dose series) 2010 Hepatitis B Screening 2015 Regular Well Visit/Exam 18-64 2015 Pneumococcal vaccine <65 (1 of 2 - PCV) 2016 Covid-19 Vaccine (2 - 2023-2 5 season) 2023 07/19/2021 Influenza Vaccine (Season Ended) 2024 DTaP/Tdap/Td Vaccine (2 - Td or Tdap) 07/07/2030 07/07/2020 HPV Vaccines Aged Out No longer eligi ble based on patient's age to complete this topic Medical Devices Implanted Type Area Filling Hauler Weaving Device Identifier Shelf Expiration Date Model / Serial / Lot Supercondylar Nail T2 Scn System Implanted:Qty: 1 on 07/08/2020 by Cherry Hdez MD at [facility] Nail Left: Femur [employer] [id number] 02/25/2023 1826-1034S / 0 / [id number] [employer] 1896-5075s 5mm 75mm Lock Full Thread Screw Bone Titanium Sterile T2 Nail - S0 - [id number] Implanted:Qty: 1 on 07/08/2020 by Cherry Hdez MD at [facility] Screw Left: Femur [employer] 04/27/2025 1896-5075S / 0 / [id number] [employer] 1896-5075s 5mm 75mm Lock Full Thread Screw Bone Titanium Sterile T2 Nail - S0 - [id number] Implanted:Qty: 1 on 07/08/2020 by Cherry Hdez MD at [facility] Screw Left: Femur [employer] [id number] 03/27/2025 1896-5075S / 0 / [id number] [employer] 1896-5070s 5mm 70mm Lock Full Thread Screw Bone Titanium Sterile T2 Nail - S0 - [id number] Implanted:Qty: 1 on 07/08/2020 by Cherry Hdez MD at [facility] Screw Left: Femur [employer] [id number] 09/26/2023 1896-5070S / 0 / [id number] [employer] 1896-5037s 5mm 37.5mm Lock Full Thread Screw Bone Titanium Sterile T2 Nail - S0 - [id number] Implanted:Qty: 1 on 07/08/2020 by Cherry Hdez MD at [facility] Screw Left: Femur [employer] [id number] 12/26/2024 1896-5037S / 0 / [id number] [employer] 1896-5032s 5mm 32.5mm Lock Full Thread Screw Bone Titanium Sterile T2 Nail - S0 - [id number] Implanted:Qty: 1 on 07/08/2020 by Cherry Hdez MD at [facility] Screw Left: Femur [employer] [id number] 02/25/2025 1896-5032S / 0 / [id number] [employer] [id number] 5mm 60mm Low Profile Internal Hex Femur Screw Bone Trigen - [id number] Implanted:Qty: 1 on 06/26/2021 by Eduarda Valencia MD at [facility] Left: Femur [employer] [id number] / / [employer] tho [id number] 5mm 55mm Low Profile Internal Hex Femur Screw Bone Trigen - [id number] Implanted:Qty: 1 on 06/26/2021 by Eduarda Valencia MD at [facility] Left: Femur [employer] [id number] / / [employer]Or tho [id number] 5mm 32.5mm Low Profile Internal Hex Femur Screw Bone Trigen - [id number] Implanted:Qty: 1 on 06/26/2021 by Eduarda Valencia MD at [facility] Left: Femur [employer] [id number] / / [employer] [id number] 5mm 27mm Low Profile Internal Hex Femur Screw Bone Trigen - [id number] Implanted:Qty: 1 on 06/26/2021 by Eduarda Valencia MD at [facility] Left: Femur [employer] [id number] / / [employer]Or tho [id number] Trigen [place]-Nail 13mm 34cm Implant Set Retrograde Femur Nail - [id number] Implanted:Qty: 1 on 06/26/2021 by Eduarda Valencia MD at [facility] Left: Femur [employer] [id number] 09/07/2028 [id number] / / [id number] [employer] [id number] 5mm 40mm Low Profile Internal Hex Femur Screw Bone Trigen - [id number] Implanted:Qty: 1 on 06/26/2021 by Eduarda Valencia MD at [facility] Left: Femur [employer] [id number] / / Explanted Type Area Filling Hauler Weaving Device Identifier Shelf Expiration Date Model / Serial / Lot [employer] 1806-0050s Jayden T2 3mm 285mm Retrograde Supracondylar Wire Fixation - S0 - [id number] Explanted:Qty: 1 on 07/08/2020 at [facility] Wire Left: Femur [employer] [id number] 12/26/2024 1806-0050S / 0 / [id number] Description:Provisional Fixa tion; Temporary Placement, ONLY; NOT AN IMPLANT [employer] tho [id number] 5mm 72mm Low Profile Internal Hex Femur Screw Bone Trigen - [id number] Explanted:Qty: 1 on 06/26/2021 by Eduarda Valencia MD at [facility] Left: Femur [employer] [id number] / / Insurance [facility] Advance Directives For more information, please contact: [phone] * Full Code (Latest Code Status on File) Date Activated Date Inactivated Comments 06/26/2021 2:37 PM 07/01/2021 3:18 PM * Full Code Date Activated Date Inactivated Comments 07/08/2020 3:09 AM 07/09/2020 6:45 PM Healthcare Agents on File Name Relationship Healthcare Agent [facility] Communication [facility] Care Teams Circular Knife Machine Cutter Relationship Specialty Start Date End Date Macario Lopez MD [address] [place] [id number] PCP - General Emergency Medicine 12/16/23 Eduarda Valencia MD Referring Physician Orthopedic Surgery 07/09/20
--- OUTSIDE RECORDS SUMMARY | 2024-08-14 00:03 | XMS_ITS | Referral Summary ---
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 Gender Identity Not on file Sexual Orientation [...] 12/16/2023 11:32 AM CDT Plan of Treatment Not on file Medical Devices Implanted Type Area Cookie Padder Device Identifier Shelf Expiration Date Model / Serial / Lot Supercondylar Nail T2 Scn System Implanted:Qty: 1 on 07/08/2020 by Cherry Hdez MD at [facility] Nail Left: Femur [employer] [id number] 02/25/2023 1826-1034S / 0 / [id number] [employer] 1896-5075s 5mm 75mm Lock Full Thread Screw Bone Titanium Sterile T2 Nail - S0 - [id number] Implanted:Qty: 1 on 07/08/2020 by Cherry Hdez MD at [facility] Screw Left: Femur [employer] 04/27/2025 1896-5075S / 0 / [id number] [employer] 1896-5075s 5mm 75mm Lock Full Thread Screw Bone Titanium Sterile T2 Nail - S0 - [id number] Implanted:Qty: 1 on 07/08/2020 by Cherry Hdez MD at [facility] Screw Left: Femur [employer] [id number] 03/27/2025 1896-5075S / 0 / [id number] [employer] 1896-5070s 5mm 70mm Lock Full Thread Screw Bone Titanium Sterile T2 Nail - S0 - [id number] Implanted:Qty: 1 on 07/08/2020 by Cherry Hdez MD at [facility] Screw Left: Femur [employer] [id number] 09/26/2023 1896-5070S / 0 / [id number] [employer] 1896-5037s 5mm 37.5mm Lock Full Thread Screw Bone Titanium Sterile T2 Nail - S0 - [id number] Implanted:Qty: 1 on 07/08/2020 by Cherry Hdez MD at [facility] Screw Left: Femur [employer] [id number] 12/26/2024 1896-5037S / 0 / [id number] [employer] 1896-5032s 5mm 32.5mm Lock Full Thread Screw Bone Titanium Sterile T2 Nail - S0 - [id number] Implanted:Qty: 1 on 07/08/2020 by Cherry Hdez MD at [facility] Screw Left: Femur [employer] [id number] 02/25/2025 1896-5032S / 0 / [id number] [employer] [id number] 5mm 60mm Low Profile Internal Hex Femur Screw Bone Trigen - [id number] Implanted:Qty: 1 on 06/26/2021 by Eduarda Valencia MD at [facility] Left: Femur [employer] [id number] / / [employer] tho [id number] 5mm 55mm Low Profile Internal Hex Femur Screw Bone Trigen - [id number] Implanted:Qty: 1 on 06/26/2021 by Eduarda Valencia MD at [facility] Left: Femur [employer] [id number] / / [employer]Or tho [id number] 5mm 32.5mm Low Profile Internal Hex Femur Screw Bone Trigen - [id number] Implanted:Qty: 1 on 06/26/2021 by Eduarda Valencia MD at [facility] Left: Femur [employer] [id number] / / [employer] [id number] 5mm 27mm Low Profile Internal Hex Femur Screw Bone Trigen - [id number] Implanted:Qty: 1 on 06/26/2021 by Eduarda Valencia MD at [facility] Left: Femur [employer] [id number] / / [employer] tho [id number] Trigen [place]-Nail 13mm 34cm Implant Set Retrograde Femur Nail - [id number] Implanted:Qty: 1 on 06/26/2021 by Eduarda Valencia MD at [facility] Left: Femur [employer] [id number] 09/07/2028 [id number] / / [id number] [employer] [id number] 5mm 40mm Low Profile Internal Hex Femur Screw Bone Trigen - [id number] Implanted:Qty: 1 on 06/26/2021 by Eduarda Valencia MD at [facility] Left: Femur [employer] [id number] / / Explanted Type Area Cookie Padder Device Identifier Shelf Expiration Date Model / Serial / Lot [employer] 1806-0050s Jayden T2 3mm 285mm Retrograde Supracondylar Wire Fixation - S0 - [id number] Explanted:Qty: 1 on 07/08/2020 at [facility] Wire Left: Femur [employer] [id number] 12/26/2024 1806-49S / 0 / [id number] Description:Provisional Fixa tion; Temporary Placement, ONLY; NOT AN IMPLANT [employer] [id number] 5mm 72mm Low Profile Internal Hex Femur Screw Bone Trigen - [id number] Explanted:Qty: 1 on 06/26/2021 by Eduarda Valencia MD at [facility] Left: Femur [employer] [id number] / / Insurance [facility] Advance Directives For more information, please contact: [phone] * Full Code (Latest Code Status on File) Date Activated Date Inactivated Comments 06/26/2021 2:37 PM 07/01/2021 3:18 PM * Full Code Date Activated Date Inactivated Comments 07/08/2020 3:09 AM 07/09/2020 6:45 PM Healthcare Agents on File Name Relationship Healthcare Agent [facility] Communication Ani Maikel Grandparent Health Care Agent Care Teams Blacksmith Apprentice Relationship Specialty Start Date End Date Macario Lopez MD [address] [place] [id number] PCP - General Emergency Medicine 12/16/23 Eduarda Valencia MD Referring Physician Orthopedic Surgery 07/09/20
--- OUTSIDE RECORDS SUMMARY | 2024-08-14 00:03 | XMS_ITS | Data Portability ---
Author Organization [facility] [employer], Main Office Address [address] [place] [address] Care Team Providers Care Proofer Prepress Name Role Phone TED BRUCE Technology Support Analyst Assessment Encounter Date Assessment Date Assessment LastModified by Organization Details LastModified Time 10/03/2023 10/03/2023 The patient has an acute closed traumatic minimally displaced fracture of the lateral malleolus distally left ankle. We talked about treatment today we are going to get her fitted with a cam walker boot this was done by the staff to fit her for her best comfort and support. I have advised her to work on swelling control with elevation wear the cam walker boot full-time she has crutches for support she can put a little weight on her heel when she feels comfortable. I will see her back in 1 week for new x-rays to make sure the fracture is maintaining its alignment. She can remove the boot when she is lying down to work on some very gentle range of motion of the ankle with flexion and extension. She was also given 20 hydrocodone 5 mg to use sparingly every 6-8 hours as needed for severe pain. She will ice the ankle as well while it is elevated we talked about this in detail. 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 we will see how she does with time. 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 They will call for any further problems difficulties or questions. Not available 10/03/2023 12:51:36 10/10/2023 10/10/2023 The patient has a healing closed mildly displaced fracture of the distal tip of the lateral malleolus. This is in the left ankle. We will continue with the cam walker boot for 3 weeks, she can start to get rid of the crutches when she feels comfortable she should wear the boot at all times when up ambulating otherwise she can take it off to work on some gentle range of motion of the left ankle a couple of times a day. She will continue with elevation for swelling control. Today she was given a refill on her hydrocodone 5 mg she was given 10 pills I have told her this is the last refill other than that she should use Tylenol or Advil. The patient voiced understanding agrees above plan we will continue with work restrictions when she returns in 3 weeks if everything looks good we might get rid of the cam walker boot 2 we will see how she is doing she voiced understanding agrees with the above plan she will call for any further problems joceline Not available 10/10/2023 12:45:37 11/03/2023 11/03/2023 The patient has a healing fracture of the lateral malleolus left ankle as described. Today's x-rays show good callus formation she is healing well. I have told her in 1 week she can get out of the cam walker boot we will get her a lace-up ankle brace to use after this today this was fitted for her in the office for her best comfort and support she can start using this in 1 week. In 1 week we will also start a course of gentle physical therapy for gentle range of motion and strengthening I will see her back in 3 weeks for final x-rays hopefully at that point let her go back to work full duty. She voiced understanding and agreed with the above plan she will call for any further problems difficulties or questions. Not available 11/03/2023 11:32:15 11/24/2023 11/24/2023 The patient has a healing fracture of the lateral malleolus left ankle. She is making good strides in her overall recovery still needs to work on a little bit of strengthening in getting back into normal activities with physical therapy. She is going to finish out physical therapy she has got a few more sessions left then she is going to return to work full duty. She was given a note for this today. If she has any problems difficulties or questions she is instructed to call she voiced understanding agrees above plan otherwise I think she can be dismissed. Today's x-rays show good healing. Not available 11/24/2023 12:23:37 Plan of Treatment Reminders Order Date Submit Date Provider Last Modified By Organization Details Last Modified Time Details Appointments None recorded. Lab None recorded. Referral physical therapist referral - W/C pt. Please contact to schedule 2023 024 DEVYN Guttenberg, [address], [place], [address], 07:15:44 Procedures None recorded. Surgeries None recorded. Imaging XR, ankle 2023 024 [email or web address] [facility] [place], [address], [place], [address], 12:34:23 XR, ankle 2023 024 [facility] [place], [address], [place], [address], 12:14:44 XR, ankle 2023 024 [facility] [place], [address], [place], [address], 12:46:41 Medication Orders hydrocodone 5 mg-acetamin ophen 325 mg tablet 2023 024 DEVYN [id number], [address], [place], [place], [id number], 12:54:25 Patient TargetsNo targets recorded. Patient InstructionsNo instructions recorded. Reason for Referral Physical Therapist Referral for Closed fracture of lateral malleolus of left fibula L ankle W/C pt. Please contact to schedule Referring Physician: Geovanny Nieves, Orthopedic Surgery, Encounter Date: 11/03/2023 Results Created Date Observation Date Name Description Value Unit Range Abnormal Flag Note LastModifiedBy Organization Detail LastModifiedTime 10/02/19 24 09/29/2023 XR, ankle , 3 or more view No observ ation record ed. [email or web address] Not Available 09/2023 15:34:46 10/02/19 24 09/29/2023 XR, foot, 3 or more view No observ ation record ed. [email or web address] Not Available 09/2023 15:34:46 10/10/19 24 XR, ankle No observ ation record ed. [facility] [place] [address], [place], [address], 10/10/2023 12:46:40 11/03/19 24 XR, ankle No observ ation record ed. [facility] [place] [address], [place], [address], 11/03/2023 11:33:24 11/24/19 24 XR, ankle No observ ation record ed. [facility] [place] [address], [place], [address], 11/24/2023 12:25:08 Result Notes None recorded. Problems Name Problem SNOMED Code Status Onset Date Resolution Date Notes Provider Name and Address Organization Details Recorded Time Numbness of hand 011985467 Active 2020 Left Not Available [facility] 3 22:43:11 Numbness of finger 720362333 Active 2020 Not Available [facility] 3 22:43:11 Pain of left ankle joint 2548658503528 9103 Active 2023 BONIFACIO Still, [place] - [facility] [employer] [facility] 4 12:29:38 Closed fracture of lateral malleolus of left fibula 8009781362018 9109 Active 2023 JARRETT Jaime [address] [facility], [place], [address] , [employer] 12:51:58 Problem Notes None recorded. 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 Surgery completed Not Available [facility] 06/26/2022 22:42:26 Knee completed Not Available [facility] 04/2022 22:42:26 procedure on femur completed Tracey Farrell CNA [employer] 10/03/2023 12:28:16 procedure on femur completed Tracey Bud, BI LEAD [employer] 10/03/2023 12:28:29 Imaging Results Imaging Date Name Status LastModified by Organiz ation Details LastModified Time 09/29/2023 XR, ankle, 3 or more view completed Information not available 10/02/2023 15:34:46 09/29/2023 XR, foot, 3 or more view completed Information not available 10/02/2023 15:34:46 10/10/2023 XR, ankle completed [facility] [place] [address], [place], [address], 10/10/2023 12:46:40 11/03/2023 XR, ankle completed [facility] [place] [address], [place], [address], 11/03/2023 11:33:24 11/24/2023 XR, ankle completed [facility] [place] [address], [place], [address], 11/24/2023 12:25:08 Procedure Notes None recorded. Medical Equipment None Reported. Allergies Allergen ID Allergen Name Allergen Category Reaction Reaction Severity Criticality Documentation Date Start Date Code Code System Note Provider Name and Address Organization Details Recorded Time 13120 Substance with sulfonami de structure and antibacte rial mechanism of action (substanc e) medicatio n hives severe Not available 06/26/2022 64419 8003 SNOMED Not Available [employer] 3 22:44:40 Medications Name Sig Start Date Stop Date Status Note LastModified by Organization Details LastModified Time cyclobenzap rine 10 mg tablet TAKE 1 TABLET BY MOUTH 3 TIMES A DAY NEEDED FOR MUSCLE SPASMS 10/02 completed Not Available Not Available Not Available venlafaxine ER 37.5 mg capsule,ext ended release 24 hr TAKE 1 CAPSULE BY MOUTH EVERY DAY DIRECTED FOR 30 DAYS 10/02 completed Not Available Not Available Not Available venlafaxine ER 75 mg capsule,ext ended release 24 hr TAKE 1 CAPSULE DAILY (AFTER FINISHING 14 DAY THERAPY WITH 37.5MG CAP) STARTING DAY 15. 10/02 completed Not Available Not Available Not Available clindamycin HCl 300 mg capsule TAKE 1 CAPSULE BY MOUTH EVERY 8 HOURS FOR 7 DAYS active Not Available Not Available No t Available trazodone 50 mg tablet TAKE 1 TABLET BY MOUTH EVERY DAY active Not Available Not Available No t Available azithromyci n 250 mg tablet 10/02 completed Not Available Not Available Not Available aspirin 325 mg tablet Take 1 tablet every day by oral route. 10/02 completed Not Available Not Available Not Available ibuprofen 800 mg tablet TAKE 1 TABLET BY MOUTH THREE TIMES DAILY FOR 7 DAYS NEEDED FOR PAIN 10/02 completed Not Available Not Available Not Available Lidocaine Viscous 2 % mucosal solution PLACE 5ML ON COTTONBAL L AND PLACE OVER TOOTH NEEDED FOR PAIN 10/02 completed Not Available Not Available Not Available benzonatate 200 mg capsule TAKE 1 CAPSULE BY MOUTH THREE TIMES DAILY NEEDED FOR COUGH 10/02 completed Not Available Not Available Not Available hydrocodone 5 mg-acetamin ophen 325 mg tablet TAKE 1 TABLET BY MOUTH EVERY 6 HOURS NEEDED FOR ACUTE PAIN active Not Available Not Available No t Available prazosin 1 mg capsule TAKE 1 CAPSULE BY MOUTH EVERYDAY AT BEDTIME 10/02 completed Not Available Not Available Not Available meloxicam 15 mg tablet TAKE 1 TABLET BY MOUTH EVERY DAY 10/02 completed Not Available Not Available Not Available prednisone 20 mg tablet 10/02 completed Not Available Not Available Not Available clindamycin HCl 150 mg capsule active Not Available Not Available Not Available penicillin V potassium 500 mg tablet TAKE 1 TABLET BY MOUTH FOUR TIMES DAILY 10/02 completed Not Available Not Available Not Available metronidazo le 500 mg tablet 10/02 completed Not Available Not Available Not Available aspirin 81 mg tablet,daniel yed release 10/02 completed Not Available Not Available Not Available tramadol 50 mg tablet 10/02 completed Not Available Not Available Not Available acetaminoph en 500 mg tablet TAKE 2 TABLETS BY MOUTH THREE TIMES DAILY NEEDED FOR PAIN 10/02 completed Not Available Not Available Not Available triamcinolo ne acetonide 0.1 % topical cream APPLY TOPICALLY TO THE AFFECTED AREA TWICE DAILY FOR 7 DAYS active Not Available Not Available No t Available amoxicillin 875 mg tablet TAKE 1 TABLET BY MOUTH EVERY 12 HOURS FOR 10 DAYS 10/02 completed Not Available Not Available Not Available trazodone 100 mg tablet TAKE 1 TABLET BY MOUTH EVERY DAY AT BEDTIME 10/02 completed Not Available Not Available Not Available benzonatate 100 mg capsule 10/02 completed Not Available Not Available Not Available cephalexin 500 mg capsule TAKE 1 CAPSULE BY MOUTH EVERY 8 HOURS 10/02 completed Not Available Not Available Not Available trazodone 150 mg tablet TAKE 1 TABLET BY MOUTH EVERY DAY AT BEDTIME NEEDED FOR 30 DAYS 10/02 completed Not Available Not Available Not Available esomeprazol e magnesium 40 mg capsule,del ayed release Take 1 capsule every day by oral route. 10/02 completed Not Available Not Available Not Available buspirone 7.5 mg tablet TAKE 1 TABLET BY MOUTH TWICE A DAY active Not Available Not Available No t Available mupirocin 2 % topical ointment APPLY OINTMENT TOPICALLY THREE TIMES DAILY FOR 7 DAYS 10/02 completed Not Available Not Available Not Available ergocalcife rol (vitamin D2) 1,250 mcg (50,000 unit) capsule 10/02 completed Not Available Not Available Not Available ibuprofen 600 mg tablet TAKE 1 TABLET BY MOUTH EVERY 8 HOURS NEEDED 10/02 completed Not Available Not Available Not Available methylpredn isolone 4 mg tablets in a dose pack 10/02 completed Not Available Not Available Not Available albuterol sulfate HFA 90 mcg/actuati on aerosol inhaler 10/02 completed Not Available Not Available Not Available cefdinir 300 mg capsule TAKE 1 CAPSULE BY MOUTH EVERY 12 HOURS FOR 10 DAYS 10/02 completed Not Available Not Available Not Available sertraline 50 mg tablet TAKE 1 TABLET BY MOUTH EVERY DAY 10/02 completed Not Available Not Available Not Available amoxicillin 875 mg-potassiu m clavulanate 125 mg tablet TAKE 1 TABLET BY MOUTH EVERY 12 HOURS 10/02 completed Not Available Not Available Not Available hydroxyzine pamoate 25 mg capsule TAKE 1 CAPSULE BY MOUTH THREE TIMES A DAY NEEDED 10/02 completed Not Available Not Available Not Available bupropion HCl XL 150 mg 24 hr tablet, extended release TAKE 1 TABLET BY MOUTH ONCE DAILY 08/09 completed Not Available Not Available Not Available escitalopra m 5 mg tablet Take 1 tablet every day by oral route. 10/02 completed Not Available Not Available Not Available hydrocodone 10 mg-acetamin ophen 300 mg tablet Take 1 tablet every 6 hours by oral route. 07/26 completed Not Available Not Available Not Available nitrofurant oin monohydrate /macrocryst als 100 mg capsule 10/02 completed Not Available Not Available Not Available duloxetine 30 mg capsule,del ayed release 10/02 completed Not Available Not Available Not Available duloxetine 60 mg capsule,del ayed release 10/02 completed Not Available Not Available Not Available chlorhexidi ne gluconate 0.12 % mouthwash SWISH AND SPIT 15ML BY MOUTH TWICE DAILY 10/02 completed Not Available Not Available Not Available Symbicort 160 mcg-4.5 mcg/actuati on HFA aerosol inhaler 10/02 completed Not Available Not Available Not Available Stimulant Laxative Plus 8.6 mg-50 mg tablet 10/02 completed Not Available Not Available Not Available Stimulant Laxative Plus 10/02 completed Not Available Not Available Not Available Blisovi Fe 05/17 (28) 1 mg-20 mcg (21)/75 mg (7) tablet TAKE 1 TABLET BY MOUTH EVERY DAY active Not Available Not Available No t Available Vitals Date Recorded Body height Provider Name an d Address Organization Details Last Updated DateTime 08/09/2020 149.86 cm Not Available [employer] 22:42:44 Date Recorded Body height Body mass index (BMI) Body weight Provider Name and Address Organization Details Last Updated DateTime 10/03/2023 152.4 cm 28.7 kg/m2 82530.08 cydney Farrell CNA [employer] 10/03/2023 12:21:58 Date Recorded Body height Body mass index (BMI) Body weight Provider Name and Address Organization Details Last Updated DateTime 10/10/2023 152.4 cm 28.7 kg/m2 92877.08 cydney Guevara [employer] [facility] [employer] [facility] 10/10/2023 12:23:10 Date Recorded Body height Body mass index (BMI) Body weight Provider Name and Address Organization Details Last Updated DateTime 11/03/2023 152.4 cm 27.5 kg/m2 67921.52 cydney Farrell CNA [employer] [facility] [employer] 11/03/2023 11:01:35 Date Recorded Body height Body mass index (BMI) Body weight Provider Name and Address Organization Details Last Updated DateTime 11/24/2023 152.4 cm 26.8 kg/m2 21570.15 cydney Farrell [facility] [employer] [facility] [employer] 11/24/2023 12:01:57 Social History Question Answer Notes LastModified by Organizat ion Details LastModified Time Tobacco Smoking Status Current Every Day Smoker Not Available [facility] 06/26/2022 22:42:09 Do You Have An Advance Directive? No [id number] Information not available 06/26/2022 What Is Your Level Of Alcohol Consumption? None [id number].[id number] Information not available 06/26/2022 What Is Your Level Of Caffeine Consumption? Heavy [id number].[id number] Information not available 06/26/2022 How Much Tobacco Do You Chew? None MIGRATION.[id number] Information not available 06/26/2022 In The 14 Days Before Symptom Onset, Have You Had Close Contact With A Laboratory-confir med COVID-19 While That Case Was Ill? No [id number] Information not available 06/26/2022 In The 14 Days Before Symptom Onset, Have You Had Close Contact With A Person Who Is Under Investigation For COVID-19 While That Person Was Ill? No [id number].[id number] Information not available 06/26/2022 What Type Of Diet Are You Following? REGULAR [id number].467222 [id number] Information not available 06/26/2022 Which Illicit Or Recreational Drugs Have You Used? None [id number].[id number] Information not available 06/26/2022 Do You Or Have You Ever Used E-cigarettes Or Vape? Never Used Electronic Cigarettes MIGRATION.[id number] 5010 Information not available 06/26/2022 Are There Any Guns Present In Your Home? Yes MIGRATION.[id number] Information not available 06/26/2022 What Was The Date Of Your Most Recent Tobacco Screening? 10/10/2020 [id number].[id number] 1823 Information not available 06/26/2022 Do You Or Have You Ever Used Smokeless Tobacco? Never Used Smokeless Tobacco MIGRATION.[id number] 4715 Information not available 06/26/2022 How Much Tobacco Do You Smoke? 0.5 PPD MIGRATION.276529 4974 Information not available 06/26/2022 Do You Use Sunscreen Routinely? No MIGRATION.[id number] 3542 Information not available 06/26/2022 How Many Years Have You Smoked Tobacco? 10 [email or web address] Information not available 10/03/2023 Sex: Female Functional Status Question Answer Note LastModified by Jamba! ion Details LastModified Time What is your exercise level? None [id number] Information not available 06/26/2022 Mental Status None recorded. Family History Relationship Description Onset Age of this Age Resolved Age Notes LastModified by Organization Details LastModified Time Paternal Grandmother Diabetes mellitus [id number] Not available 06/26/2022 22:42:27 Father Congestive heart failure [id number] Not available 06/26/2022 22:42:27 Medical History Condition Response NERVE DISEASE N BLINDNESS N RHEUMATIC FEVER N KIDNEY STONES N BLADDER PROBLEMS N MRSA N OTHER # 1 N POLIO N LUNG DISEASE/DISORDER N RADIATION / CHEMOTHERAPY N COPD N Other # 2 N BLOOD DISEASES N SURGERY N EAR OR HEARING PROBLEMS N MUMPS N DEPRESSION (INCLUDING POST ) N BOWEL PROBLEMS N STROKE/TIA N ULCERS N BENIGN PROSTATIC HYPERPLASIA N MEASLES N MYOCARDIAL INFARCTION N OBESITY N GERD/NAUSEA N ANEURYSM N URINARY/BLADDER/KIDNEY PROBLEMS N CORONARY ARTERY DISEASE (CAD) N ADDICTION CONCERNS N Impotence N ENDOMETRIOSIS N USE OF BLOOD THINNERS N SKIN PROBLEMS N GASTROINTESTINAL DISORDER N PERIPHERAL VASCULAR DISEASE N MUSCLE,JOINT OR BONE PROBLEMS N GASTROINTESTINAL BLEEDING N BLOOD CLOTS N ASTHMA N CATARACTS N ERECTILE DYSFUNCTION N VARICOSITIES N GI PROBLEMS N Low Testosterone N INFERTILITY N AIDS/HIV N CHEMOTHERAPY / RADIATION N LIVER DISEASE N MALE HYPOGONADISM N HYPERTENSION N Deficiency N ANXIETY DISORDER N BLOOD TRANSFUSION N ANEMIA/BLOOD DISORDER N CHRONIC EAR INFECTIONS N BRONCHITIS N TUBERCULOSIS N GLAUCOMA N FOOT PROBLEM N DIVERTICULITIS N SLEEP APNEA N CHICKENPOX N INFECTIOUS DISEASE N PROSTATE N HEART ARRHYTHMIA N INSOMNIA N HIGH CHOLESTEROL / HYPERLIPIDEMIA N EYE PROBLEMS N HYPERTHYROIDISM N NEUROLOGICAL PROBLEMS N EDEMA N CHRONIC PAIN SYNDROME N HYPOTHYROIDISM N CAROTID BLOCKAGE N CONSTIPATION N BACK / NECK PROBLEMS N HAVE YOU BEEN HOSPITALIZED OR SEEN IN [facility] ER IN THE PAST YEAR ? Y ATHEROSCLEROSIS N BREAST PROBLEMS N DIALYSIS N ECZEMA N OSTEOPOROSIS N ARTHRITIS N APPENDICITIS N DIABETES, TYPE N BAD TEETH N ENT N HEARTBURN / REFLUX N AUTISM SPECTRUM DISORDER (ASD) N HEPATITIS / LIVER DISEASE N GOUT N SLEEP DISORDER N ALZHEIMER'S DISEASE N Brain Problems N DEMENTIA N HERPES N SEIZURES/EPILEPSY N HEADACHES/MIGRAINES N VASCULAR DISEASE N PACEMAKER N Blood Disorder N DIZZINESS N HEART DISEASE/HEART PROBLEMS N KIDNEY DISEASE N MULTIPLE SCLEROSIS N CANCER: SPECIFY N CARDIAC ARRHYTHMIA N ATRIAL FIBRILLATION N Gall Stones N PULMONARY EMBOLISM N AUTOIMMUNE DISEASE N Gynecological HistoryNo gynecological history recorded. Obstetrics History GPAL:G 0 P 0 0 0 0 Past Encounters Encounter ID Performer Location Encounter Start Date Encounter Closed Date Diagnosis/Indication Diagnosis SNOMED-CT Code Diagnosis ICD10 Code Diagnosis Note [id number] [facility] Internal [facility] Rian blanco [facility] [place] [address] [address] 07/26/2020 00:00:00 07/26/2020 16:13:43 [id number] [facility] Internal Med Rian blanco [facility] [place] [address] 08/09/2020 00:00:00 08/09/2020 16:23:[id number] [address] 08/11/2020 00:00:00 08/14/2020 16:31:[id number] [address] 09/07/2020 00:00:00 09/07/2020 14:39:50 [id number] [facility] Kendal Mireles, [facility] [place] [address] 10/11/2020 00:00:00 10/11/2020 15:53:33 [id number] [facility] Kendal Mireles, [facility] [place] [address] 12/28/2020 00:00:00 12/28/2020 15:03:22 [id number] [facility] 4 Kendal Mireles, [facility] [place] [address] 01/24/2021 00:00:00 01/24/2021 16:33:47 [id number] [facility] Michael Mireles, [facility] [place] [address] 02/05/2021 00:00:00 02/05/2021 15:00:50 [id number] [facility] Kendal Mireles, [address] [place] [address] 03/29/2021 00:00:00 03/29/2021 11:05:41 [id number] [facility] 4 Kendal Mireles, [address] [address] 05/24/2021 00:00:00 05/24/2021 15:38:51 [id number] [facility] 4 Kendal Mireles, [facility] [place] [address] 08/22/2021 00:00:00 08/22/2021 18:22:56 [id number] [facility] 4 Kendal Mireles, [facility] [place] [address] 10/04/2021 00:00:00 10/04/2021 16:38:49 [id number] [facility] Herminio Mireles, [facility] [place] [address] 10/31/2021 00:00:00 10/31/2021 12:36:58 [id number] [facility] Kendal Mireles, [facility] [place] [address] 12/10/2021 00:00:00 12/10/2021 15:04:21 [id number] [facility] [address] [address] 01/10/2022 00:00:00 01/10/2022 19:10:56 [id number] JARRETT Jaime [facility] [place] [address] [place] [address] 10/03/2023 12:09:46 10/03/2023 12:49:17 Pain of left ankle joint 7089308632 1989983 M25.572 Closed fra cture of lateral malleolus of left fibula 5749643228 [id number] S82.62XA [id number] JARRETT Jaime [facility] [place] [address] [place] [address] 10/10/2023 12:21:44 10/10/2023 12:43:38 Closed fracture of lateral malleolus of left fibula [id number] [id number] S82.62XD Pain of le ft ankle joint 1508473531 [id number] M25.151 [id number] JARRETT Jaime [facility] [place] [address] [place] [id number] 11/03/2023 10:57:43 11/03/2023 11:40:38 Closed fracture of lateral malleolus of left fibula [id number] S82.62XD Pain of le ft ankle joint [id number] M25.449 [id number] Izzy Castro NP [facility] [address] [address] 11/25/2023 14:09:44 11/25/2023 16:17:24 [id number] JARRETT Jaime [facility] [address] [place] [address] 11/24/2023 11:55:33 11/24/2023 12:34:23 Closed fracture of lateral malleolus of left fibula [id number] S82.62XD Pain of le ft ankle joint [id number] M25.572 Health Concerns Section Related Observation LastModified by Organization Detai ls LastModified Time None Recorded Concern Status LastModified by Organization Details LastModified Time None Recorded Advance Directives Directive N: Payers Encounter Date Sequence Insurance Name Policy Number Policy Waddell Covered Member ID Waddell Member ID Guarantor Name 10/03/2023 1 [facility] (MEDICAID HMO) [id number] Ariana Marie [id number] Ariana Marie 10/10/2023 [employer] Ariana Marie 11/03/2023 [employer] Ariana Marie 11/24/2023 [employer] Ariana Marie Notes Date Note Type Note Provider Name and Address Organization Details Recorded Time 10/03/2023 text/html The patient is a 28-year-old female who suffered an injury to her left ankle at work. 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 She felt a sudden pop in the ankle he would immediate pain and swelling and ecchymosis the forearm soon after localized mostly over the lateral ankle. She went to the emergency room at [facility] had x-rays performed. X-rays demonstrate a closed acute traumatic minimally displaced fracture of the distal tip of the lateral malleolus. This is an oblique fracture Posey type A. Ankle mortise is well-maintained. I have reviewed the x-rays in detail today with the patient I agree with the above findings. She has placed in a splint asked to follow up with Orthopedic Service. She has crutches she was given a minimal amount of hydrocodone she has been working on swelling control with elevation and staying off of it. She denies any neurovascular deficits and really no pain medially. Denies any weakness although she really has not tried to move it at all since she is broken it. She has no pain or tenderness in the Achilles region and no abrasions or lacerations. She comes in today for initial evaluation treatment stating the pain is about an 8 on a scale 1-10 with some throbbing and aching. A new past medical history sheet was reviewed and signed on the intake sheet of today's date drug allergies current medications family social history previous surgical history 10 point review of systems was reviewed and discussed in detail today with the patient. JARRETT Jaime [address], [place], [address], [facility] 10/03/2023 12:56:55 10/10/2023 text/html Patient returns for recheck of her left ankle. She had a closed acute minimally displaced fracture of the distal tip of the lateral malleolus. 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 She would awkward landing twisted her ankle felt a sudden pop x-rays showed the fracture. She has been in a cam walker boot the fracture is Posey type A. She has some continued pain swelling has come down quite a bit the pain is improving still has some resolving ecchymosis the injury occurred about 11 days ago. Overall she is doing well in the cam walker boot using crutches for support and balance. She comes in today for new x-rays and recheck. JARRETT Jaime [address], [place], [address], [facility] 10/10/2023 12:50:03 11/03/2023 text/html patient returns she is now 1 month status post injury to her left ankle. 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 She twisted her ankle felt a pop x-rays show the above fracture. She had a Posey type a fracture she was placed in a cam walker boot she has been doing well really no pain with ambulation in the boot she still has some pain and tenderness over the lateral malleolus but overall is doing much better she comes in today for new x-rays and recheck she is now 1 month status post injury still off of work. Denies any loss of motion no swelling no numbness or tingling or weakness. She is able to bear full weight fairly comfortably. JARRETT Jaime [address], [place], [address], [facility] 11/03/2023 11:33:48 11/24/2023 text/html Patient returns for recheck of her left ankle. She is now about 6 weeks status post injury. 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 X-rays showed a Posey type a fracture she has been in a cam walker boot now more recently for the past couple of weeks was in a lace-up ankle brace and has been doing physical therapy for range of motion strengthening. She states she has discontinued the lace-up ankle brace because she is feeling much better. Her only discomfort is when she tries to go down steps and plant the ball of her foot to land on the step then she has some discomfort in the ankle. Otherwise she does okay she has been going easy with it working on strengthening she states the ankle feels a little weak and that may be causing some of the discomfort in the ankle with trying to go down stairs. She denies any swelling no sensation of instability and overall is feeling only very minimal pain she states it is about a 1 on a scale of 1-10 today making good progress she comes in today for new x-rays and recheck. JARRETT Jaime [address] [facility], [facility] [address], [place], [address], [place] [facility] [employer] 11/24/2023 12:32:48 OBGyn Episode No OBEpisode recorded.
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
--- OUTSIDE RECORDS SUMMARY | 2024-08-14 00:03 | XMS_ITS | Encounter Summary ---
Author Organization [facility] Address [address] [place] [address] Care Team Providers Care Newspaper Subscription Solicitor Name Role Phone Eduarda Valencia MD Unavailable Bonnie Meneses INDUSTRIAL DESIGN ENGINEER Primary Care Provider [phone] No, Physician Primary Care Provider [phone] Bonnie Meneses INDUSTRIAL DESIGN ENGINEER Primary Care Provider [phone] Ellie, Physician Primary Care Provider [phone] Bonnie Meneses INDUSTRIAL DESIGN ENGINEER Primary Care Provider [phone] Macario Lopez MD Primary Care Provider [phone] Encounter Details Date Type Department Care Team (Late st Contact Info) Description 04/26/2021 Documentation [facility] Orthopedic Trauma [address] [facility] 4th Floor [address] [place] [id number] Dwight Palmer MD [address] [facility] [address] [place] [address] Social History Tobacco Use Types Packs/Day Years Used Date Smoking Tobacco: Every Day Cigarettes 0.5 8 Smokeless Tobacco: Never Alcohol Use Standard Drinks/Week Comments Never 0 (1 standard drink = 0.6 oz pur e alcohol) AUDIT-C Answer Date Recorded Q1: How often do you have a drink containing alc ohol? Never 03/01/2021 Q2: How many drinks containi ng alcohol do you have on a typical day when you are drinking? 1 or 2 03/01/2021 Q3: How often do you have six or more drinks on one occasion? Never 03/01/2021 Comments No Sex and Gender Information Value Date Recorded Sex Assigned at Not on file Legal Sex Female 9:37 AM CHAPERON Gender Identity Not on file Sexual Orientation Not on file documented as of this encounter Plan of Treatment Not on file documented as of this encounter Visit Diagnoses Not on filedocumented in this encounter Additional Health Concerns Infection Onset Date Last Indicated Resolved Time COVID19 05/04/2021 05/04/2021 05/14/2021 3:06 AM CHAPERON COVID: Recovered Comment:Added based on recent COVID infection. 05/14/2021 05/18/2021 09/11/2021 3:05 AM C DT documented as of this encounter Care Teams Newspaper Subscription Solicitor Relationship Specialty Start Date End Date Bonnie Meneses NP PCP - General 09/07/20 05/03/21 No, Physician PCP - General 05/04/21 05/04/21 Bonnie Meneses NP PCP - General 05/05/21 05/21/21 No, Physician PCP - General 05/22/21 06/25/21 Bonnie Meneses NP PCP - General 06/26/21 12/15/23 Macario Lopez MD [address] [place] [address] PCP - General Emergency Medicine 12/16/23 Eduarda Valencia MD Referring Physician Orthopedic Surgery 07/09/20 documented as of this encounter
[2024-08-14 00:18] VITALS: BP 129/79; PULSE 72; RESP 15; TEMP 36.4; O2SAT 100
--- OUTSIDE RECORDS SUMMARY | 2024-08-14 01:27 | XMS_ITS | Clinical Summary ---
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 Immunizations Immunization [...] on file Legal Sex Female 9:37 AM CHUMMER Gender Identity Not on file Sexual Orientation [...] this topic Medical Devices Implanted Type Area Daylight Driller Device Identifier Shelf Expiration Date Model / Serial / Lot Supercondylar Nail T2 Scn System Implanted:Qty: 1 on 07/08/2020 by Cherry Hdez MD at [facility] Nail Left: Femur [employer] [id number] 02/25/2023 1826-1034S / 0 / [id number] [employer] 1896-5075s 5mm 75mm Lock Full Thread Screw Bone Titanium Sterile T2 Nail - S0 - [id number] Implanted:Qty: 1 on 07/08/2020 by Cherry Hdez MD at [facility] Screw Left: Femur [employer] 04/27/2025 1896-5075S / 0 / [id number] [employer] 1896-5075s 5mm 75mm Lock Full Thread Screw Bone Titanium Sterile T2 Nail - S0 - [id number] Implanted:Qty: 1 on 07/08/2020 by Cherry Hdez MD at [facility] Screw Left: Femur [employer] [id number] 03/27/2025 1896-5075S / 0 / [id number] [employer] 1896-5070s 5mm 70mm Lock Full Thread Screw Bone Titanium Sterile T2 Nail - S0 - [id number] Implanted:Qty: 1 on 07/08/2020 by Cherry Hdez MD at [facility] Screw Left: Femur [employer] [id number] 09/26/2023 1896-5070S / 0 / [id number] [employer] 1896-5037s 5mm 37.5mm Lock Full Thread Screw Bone Titanium Sterile T2 Nail - S0 - [id number] Implanted:Qty: 1 on 07/08/2020 by Cherry Hdez MD at [facility] Screw Left: Femur [employer] [id number] 12/26/2024 1896-5037S / 0 / [id number] [employer] 1896-5032s 5mm 32.5mm Lock Full Thread Screw Bone Titanium Sterile T2 Nail - S0 - [id number] Implanted:Qty: 1 on 07/08/2020 by Cherry Hdez MD at [facility] Screw Left: Femur [employer] [id number] 02/25/2025 1896-5032S / 0 / [id number] [employer] [id number] 5mm 60mm Low Profile Internal Hex Femur Screw Bone Trigen - [id number] Implanted:Qty: 1 on 06/26/2021 by Eduarda Valencia MD at [facility] Left: Femur [employer] [id number] / / [employer]Or [employer] [id number] 5mm 55mm Low Profile Internal Hex Femur Screw Bone Trigen - [id number] Implanted:Qty: 1 on 06/26/2021 by Eduarda Valencia MD at [facility] Left: Femur [employer]o [id number] / / [employer]Or tho [id number] 5mm 32.5mm Low Profile Internal Hex Femur Screw Bone Trigen - [id number] Implanted:Qty: 1 on 06/26/2021 by Eduarda Valencia MD at [facility] Left: Femur [employer]o [id number] / / [employer]Or tho [id number] 5mm 27mm Low Profile Internal Hex Femur Screw Bone Trigen - [id number] Implanted:Qty: 1 on 06/26/2021 by Eduarda Valencia MD at [facility] Left: Femur [employer] [id number] / / [employer]Or tho [id number] Trigen [place]-Nail 13mm 34cm Implant Set Retrograde Femur Nail - [id number] Implanted:Qty: 1 on 06/26/2021 by Eduarda Valencia MD at [facility] Left: Femur [employer] [id number] 09/07/2028 [id number] / / [id number] [employer]Or [employer] [id number] 5mm 40mm Low Profile Internal Hex Femur Screw Bone Trigen - [id number] Implanted:Qty: 1 on 06/26/2021 by Eduarda Valencia MD at [facility] Left: Femur [employer] [id number] / / Explanted Type Area Daylight Driller Device Identifier Shelf Expiration Date Model / Serial / Lot [employer] 1806-0050s Jayden T2 3mm 285mm Retrograde Supracondylar Wire Fixation - S0 - [id number] Explanted:Qty: 1 on 07/08/2020 at [facility] Wire Left: Femur [employer] [id number] 12/26/2024 1806-0050S / 0 / [id number] Description:Provisional Fixa tion; Temporary Placement, ONLY; NOT AN IMPLANT [employer] [id number] 5mm 72mm Low Profile Internal Hex Femur Screw Bone Trigen - [id number] Explanted:Qty: 1 on 06/26/2021 by Eduarda Valencia MD at [facility] Left: Femur [employer] [id number] / / Insurance IDMI [facility] Advance Directives For more information, please contact: [phone] * Full Code (Latest Code Status on File) Date Activated Date Inactivated Comments 06/26/2021 2:37 PM 07/01/2021 3:18 PM * Full Code Date Activated Date Inactivated Comments 07/08/2020 3:09 AM 07/09/2020 6:45 PM Healthcare Agents on File Name Relationship Healthcare Agent [facility] Communication [facility] Care Teams Tennis Court Attendant Relationship Specialty Start Date End Date Macario Lopez MD [address] [place] [id number] PCP - General Emergency Medicine 12/16/23 Eduarda Valencia MD Referring Physician Orthopedic Surgery 07/09/20
--- OUTSIDE RECORDS SUMMARY | 2024-08-14 01:27 | XMS_ITS | Clinical Summary ---
Author Organization [facility] Address [address] [place] [address] Care Team Providers Care Brass Plater Name Role Phone Macairo Lopez MD Primary Care Provider [phone] Allergies Active Allergy Reactions Criticality Noted Date [...] CDT - 08/13/2024 8:33 AM CDT Emergency [facility] [place] [address] Natalie Zendejas MD Heppermann, Beth, MD Leg Pain Discharge Disposition: Home or Self Care (Routine Discharge) 08/13/2024 Travel 06/18/2024 11:50 PM MANAGER RN CASE - 06/19/2024 1:04 AM [facility] Emergency [facility] Emergency Room [place], [place] [id number] Shanel Rodriguez PA Hip Pain Discharge Disposition: [...] Sex Assigned at Female 06/19/2024 12:34 AM MANAGER RN CASE Legal Sex Female 4:36 PM CDT Gender [...] [facility] Pat.Name: BLAINE NEGRETE Pat.ID: [id number] .Date: 08/13/2024 Refer.: [id number], Nidia patten Exam Time: 6:44:00 AM Study [...] LUMB SPINE 3V STAT 06/19/2024 12:15 AM MANAGER RN CASE XR PELVIS+LT HIP 2V STAT 06/19/2024 12:15 AM MANAGER RN CASE POCT URINE (BACK OFFICE) STAT 06/18/2024 11:59 PM MANAGER RN CASE from Last 3 Months Results * (ABNORMAL) COMPREHENSIVE METABOLIC PANEL (08/13/2024 3:39 AM CDT) GLUCOSE 69(L) 70 - 99 MG/DL 08/13/2024 4:28 AM CDT [facility] BUN 9 7 - 18 MG/DL 08/13/2024 4:28 AM CDT [facility] CREATININE S/P/B 0.86 0.55 - 1.02 MG/DL 08/13/2024 4:28 AM CDT [facility] SODIUM S/P/B 138 136 - 145 MMOL/L 08/13/2024 4:28 AM CDT [facility] POTASSIUM S/P/B 3.2(L) 3.5 - 5.1 MMOL/L 08/13/2024 4:28 AM CDT [facility] CHLORIDE S/P/B 105 97 - 115 MMOL/L 08/13/2024 4:28 AM CDT [facility] CO2 28.8 21 - 32 MMOL/L 08/13/2024 4:28 AM CDT [facility] CALCIUM S/P/B 8.7 8.5 - 10.1 MG/DL 08/13/2024 4:28 AM CDT [facility] BILIRUBIN TOTAL S/P/B 0.8 0.2 - 1.2 MG/DL 08/13/2024 4:28 AM CDT [facility] Comment: THIS ASSAY IS NOT RECOMMENDED FOR PATIENTS UNDERGOING TREATMENT WITH ELTROMBOPAG DUE TO THE POTENTIAL FOR FALSELY ELEVATED RESULTS. TOTAL PROTEIN S/P/B 7.7 6.4 - 8.2 G/DL 08/13/2024 4:28 AM CDT [facility] ALBUMIN S/P/B 3.9 3.4 - 5.0 G/DL 08/13/2024 4:28 AM CDT [facility] AST 17 15 - 37 U/L 08/13/2024 4:28 AM T [facility] ALT 21 14 - 55 U/L 08/13/2024 4:28 AM CDT [facility] ALKALINE PHOSPHATASE S/P/B 89 50 - 136 U/L 08/13/2024 4:28 AM T [facility] ANION GAP 4.2 2 - 10 MMOL/L 08/13/2024 4:28 AM T [facility] BUN CREATININE RATIO 10.4 6 - 26 08/13/2024 4:28 AM T [facility] A/G RATIO 1.0 1.0 - 2.0 RATIO 08/13/2024 4:28 AM T [facility] GFR ESTIMATE >90 >90 ML/MIN/1.7 3 M2 08/13/2024 4:28 AM T [facility] Comment: NOTE: eGFR is not [...] us Natalie Zendejas MD LABORATORY Final Result [facility] [address] [place] [address], * D-DIMER, QUANTITATIVE (08/13/2024 3:39 AM CDT) Pathologist [facility] D-DIMER 265 0 - 500 ng{FEU}/mL 08/13/2024 4:19 AM CDT [facility] Comment: D-Dimer values less than [...] CDT Natalie Zendejas MD LABORATORY Final Result [facility] [address] [place] [address], * CBC W/DIFF AUTOMATED (08/13/2024 3:39 AM CDT) Pathologist [facility] WBC 9.79 4.5 - 11.0 x10'3/uL 08/13/2024 5:11 AM CDT [facility] RBC 4.85 4.20 - 5.40 x10'6/uL 08/13/2024 5:11 AM CDT [facility] HGB 14.5 12.0 - 16.0 G/DL 08/13/2024 5:11 AM CDT [facility] HCT 42.6 38.0 - 48.0 % 08/13/2024 5:11 AM CDT [facility] MCV 87.8 81.0 - 99.0 FL 08/13/2024 5:11 AM CDT [facility] MCH 29.9 27.0 - 31.0 PG 08/13/2024 5:11 AM CDT [facility] MCHC 34.0 32.0 - 36.0 G/DL 08/13/2024 5:11 AM CDT [facility] RDW 13.2 11.5 - 14.5 % 08/13/2024 5:11 AM CDT [facility] PLT 311 130 - 400 x10'3/uL 08/13/2024 5:11 AM CDT [facility] MPV 11.0 9.3 - 12.2 FL 08/13/2024 5:11 AM CDT [facility] DIFFERENTIAL TYPE AUTOMATED DIFFERENTIAL 08/13/2024 5:11 AM CDT [facility] NEUTROPHILS % 51.5 % 08/13/2024 5:11 AM CDT [facility] LYMPHOCYTES % 37.8 % 08/13/2024 5:11 AM CDT [facility] MONOCYTES % 7.5 % 08/13/2024 5:11 AM CDT [facility] EOSINOPHILS 2.3 % 08/13/2024 5:11 AM CDT [facility] BASOPHILS 0.6 % 08/13/2024 5:11 AM CDT [facility] IMMATURE GRANS % 0.3 % 08/14/19 5:11 AM CDT [facility] ABS. NEUTROPHILS 5.04 1.80 - 7.70 x10'3/uL 08/13/2024 5:11 AM CDT [facility] ABS. LYMPHOCYTES 3.70 1.00 - 4.80 x10'3/uL 08/13/2024 5:11 AM CDT [facility] ABS. MONOCYTES 0.73 0.24 - 0.86 x10'3/uL 08/13/2024 5:11 AM CDT [facility] ABS. EOSINOPHILS 0.23 0.04 - 0.36 x10'3/uL 08/13/2024 5:11 AM CDT [facility] ABS. BASOPHILS 0.06 0.01 - 0.08 x10'3/uL 08/13/2024 5:11 AM CDT [facility] ABS. IMMATURE GRANULOCYTES 0.03 0.00 - 0.49 x10'3/uL 08/13/2024 5:11 AM CDT [facility] 08/13/2024 3:39 AM CDT Natalie Zendejas MD LABORATORY Final Result [facility] [address] [place] [address], [place] [phone] * CK (CPK) (08/13/2024 3:39 AM CDT) CPK 191 21 - 215 U/L 08/13/2024 6:40 AM CDT [facility] 08/13/2024 3:39 AM CDT us Natalie Zendejas MD LABORATORY Final Result [facility] [address] [place] [address], [place] [phone] * XR LUMB SPINE 3V (06/19/2024 12:15 AM MANAGER RN CASE) Anatomical Region Laterality Modality Spine Radiographic Kaitlynn ging 06/19/2024 12:3 6 AM MANAGER RN CASE Impressions 06/19/2024 12:38 AM MANAGER RN CASE IMPRESSION: No acute osseous abnormalities identified. Referred By: Interpreted By: Issac Matta DO, 06/19/2024 12:36 AM Narrative 06/19/2024 12:38 AM MANAGER RN CASE [place] [address] EXAMINATION: XR LUMB SPINE 3V HISTORY: Lower [...] Procedure Note Issac Matta DO - 06/19/2024 [place] [address] EXAMINATION: XR LUMB SPINE 3V HISTORY: Lower [...] XR PELVIS+LT HIP 2V (06/19/2024 12:15 AM MANAGER RN CASE) Anatomical Region Laterality Modality Hip, Pelvis Radiographic Kaitlynn ging 06/19/2024 12:3 8 AM MANAGER RN CASE Impressions 06/19/2024 12:40 AM MANAGER RN CASE IMPRESSION: No acute osseous abnormalities identified. Referred By: Interpreted By: Issac Matta DO, 06/19/2024 12:38 AM Narrative 06/19/2024 12:40 AM MANAGER RN CASE [place] [address] EXAMINATION: XR PELVIS+LT HIP 2V HISTORY: Left [...] Procedure Note Issac Matta DO - 06/19/[address] [address] EXAMINATION: XR PELVIS+LT HIP 2V HISTORY: Left [...] Result * POCT urine (06/18/2024 11:59 PM MANAGER RN CASE) URINE HCG TEST NEGATIVE Internal Control: VALID us Shanel FARIAS POINT OF CARE TEST ORDERABLES Final Result from Last 3 Months Insurance [employer] Care Teams Brass Plater Relationship Specialty Start Date End Date Macario Lopez MD [address] [address] PCP - General FAMILY PRACTICE 08/23/23
--- OUTSIDE RECORDS SUMMARY | 2024-08-14 01:27 | XMS_ITS | Referral Summary ---
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 Gender Identity Not on file Sexual Orientation [...] on file Medical Devices Implanted Type Area Gauge Machine Operator Device Identifier Shelf Expiration Date Model / Serial / Lot Supercondylar Nail T2 Scn System Implanted:Qty: 1 on 07/08/2020 by Cherry Hdez MD at [facility] Nail Left: Femur [employer] [id number] 02/25/2023 1826-1034S / 0 / [id number] [employer] 1896-5075s 5mm 75mm Lock Full Thread Screw Bone Titanium Sterile T2 Nail - S0 - [id number] Implanted:Qty: 1 on 07/08/2020 by Cherry Hdez MD at [facility] Screw Left: Femur [employer] 04/27/2025 1896-5075S / 0 / [id number] [employer] 1896-5075s 5mm 75mm Lock Full Thread Screw Bone Titanium Sterile T2 Nail - S0 - [id number] Implanted:Qty: 1 on 07/08/2020 by Cherry Hdez MD at [facility] Screw Left: Femur [employer] [id number] 03/27/2025 1896-5075S / 0 / [id number] [employer] 1896-5070s 5mm 70mm Lock Full Thread Screw Bone Titanium Sterile T2 Nail - S0 - [id number] Implanted:Qty: 1 on 07/08/2020 by Cherry Hdez MD at [facility] Screw Left: Femur [employer] [id number] 09/26/2023 1896-5070S / 0 / [id number] [employer] 1896-5037s 5mm 37.5mm Lock Full Thread Screw Bone Titanium Sterile T2 Nail - S0 - [id number] Implanted:Qty: 1 on 07/08/2020 by Cherry Hdez MD at [facility] Screw Left: Femur [employer] [id number] 12/26/2024 1896-5037S / 0 / [id number] [employer] 1896-5032s 5mm 32.5mm Lock Full Thread Screw Bone Titanium Sterile T2 Nail - S0 - [id number] Implanted:Qty: 1 on 07/08/2020 by Cherry Hdez MD at [facility] Screw Left: Femur [employer] [id number] 02/25/2025 1896-5032S / 0 / [id number] [employer] [id number] 5mm 60mm Low Profile Internal Hex Femur Screw Bone Trigen - [id number] Implanted:Qty: 1 on 06/26/2021 by Eduarda Valencia MD at [facility] Left: Femur [employer] [id number] / / [employer] [id number] 5mm 55mm Low Profile Internal Hex Femur Screw Bone Trigen - [id number] Implanted:Qty: 1 on 06/26/2021 by Eduarda Valencia MD at [facility] Left: Femur [employer] [id number] / / [employer] [id number] 5mm 32.5mm Low Profile Internal Hex Femur Screw Bone Trigen - [id number] Implanted:Qty: 1 on 06/26/2021 by Eduarda Valencia MD at [facility] Left: Femur [employer] [id number] / / [employer] [id number] 5mm 27mm Low Profile Internal Hex Femur Screw Bone Trigen - [id number] Implanted:Qty: 1 on 06/26/2021 by Eduarda Valencia MD at [facility] Left: Femur [employer] [id number] / / [employer] [id number] Trigen Laporte-Nail 13mm 34cm Implant Set Retrograde Femur Nail - [id number] Implanted:Qty: 1 on 06/26/2021 by Eduarda Valencia MD at [facility] Left: Femur [employer] [id number] 09/07/2028 [id number] / / [id number] [employer] [id number] 5mm 40mm Low Profile Internal Hex Femur Screw Bone Trigen - [id number] Implanted:Qty: 1 on 06/26/2021 by Eduarda Valencia MD at [facility] Left: Femur [employer] [id number] / / Explanted Type Area Gauge Machine Operator Device Identifier Shelf Expiration Date Model / Serial / Lot [employer] 1806-0050s Jayden T2 3mm 285mm Retrograde Supracondylar Wire Fixation - S0 - [id number] Explanted:Qty: 1 on 07/08/2020 at [facility] Wire Left: Femur [employer] [id number] 12/26/2024 1806-49S / 0 / [id number] Description:Provisional Fixa tion; Temporary Placement, ONLY; NOT AN IMPLANT [employer] [id number] 5mm 72mm Low Profile Internal Hex Femur Screw Bone Trigen - [id number] Explanted:Qty: 1 on 06/26/2021 by Eduarda Valencia MD at [facility] Left: Femur [employer] [id number] / / Insurance [facility] Advance Directives For more information, please contact: [phone] * Full Code (Latest Code Status on File) Date Activated Date Inactivated Comments 06/26/2021 2:37 PM 07/01/2021 3:18 PM * Full Code Date Activated Date Inactivated Comments 07/08/2020 3:09 AM 07/09/2020 6:45 PM Healthcare Agents on File Name Relationship Healthcare Agent [facility] Communication Ani Maikel Grandparent Health Care Agent Care Teams Obstetrics And Gynecology Professor Relationship Specialty Start Date End Date Macario Lopez MD [address] [place] [address] PCP - General Emergency Medicine 12/16/23 Eduarda Valencia MD Referring Physician Orthopedic Surgery 07/09/20
--- OUTSIDE RECORDS SUMMARY | 2024-08-14 01:27 | XMS_ITS | Encounter Summary ---
Author Organization [facility] Healthcare Address [address] [place] [address] Care Team Providers Care Salvage Winder And Inspector Name Role Phone Eduarda Valencia MD Unavailable [phone] Bonnie Meneses R D ENGINEER Primary Care Provider [phone] No, Physician Primary Care Provider [phone] Bonnie Meneses R D ENGINEER Primary Care Provider [phone] Ellie, Physician Primary Care Provider Bonnie Meneses R D ENGINEER Primary Care Provider [phone] Macario Lopez MD Primary Care Provider [phone] Encounter Details Date Type Department Care Team (Late st Contact Info) Description 04/26/2021 Documentation [facility] Orthopedic Trauma [address] [place] [id number] Dwight Palmer MD [address] [facility] [address] [place] [address] [place] [address] Social History Tobacco Use Types Packs/Day Years [...] on file 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 05/14/2021 05/18/2021 09/11/2021 3:05 AM C DT documented as of this encounter Care Teams Salvage Winder And Inspector Relationship Specialty Start Date End Date Bonnie Meneses NP PCP - General 09/07/20 05/03/21 No, Physician PCP - General 05/04/21 05/04/21 Bonnie Meneses NP PCP - General 05/05/21 05/21/21 No, Physician PCP - General 05/22/21 06/25/21 Bonnie Meneses NP PCP - General 06/26/21 12/15/23 Macario Lopez MD [address] [place] [address] PCP - General Emergency Medicine 12/16/23 Eduarda Valencia MD Referring Physician Orthopedic Surgery 07/09/20 documented as of this encounter
--- OUTSIDE RECORDS SUMMARY | 2024-08-14 01:27 | XMS_ITS | Encounter Summary ---
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 Legal Sex Female 4:36 PM CDT Gender Identity Not on file Sexual Orientation Not on file documented as of this encounter Functional Status * Calculated C-SSRS Risk Score (Lifetime/Recent) Answer Date of Assessment Author Status No Risk Indicated 08/13/2024 3:03 AM Reanna Padron RN Active * [place] Suicide Severity Rating Scale (Screener/Recent Self-Report) Question [...] on filedocumented in this encounter Care Teams Supervisor Fruit Grading Relationship Specialty Start Date End Date Macario Lopez MD [address] [place] [address] PCP - General FAMILY PRACTICE 08/23/23 documented as of this encounter
--- OUTSIDE RECORDS SUMMARY | 2024-08-14 01:27 | XMS_ITS | Clinical Summary ---
Author Organization [facility] [employer] Address [address] [place] [address] Care Team Providers Care Office Auditor Name Role Phone Macario Lopez MD Primary Care Provider [phone] Source Comments [facility],non-owned Affiliates and Associated Physician Practices is amultiple site organization consisting of ambulatory clinics and hospital sitesin [place], [place], [place] and [place]. This disclosure is being madepursuant to the Care Everywhere program and may not contain all information available regarding this patient. 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
--- OUTSIDE RECORDS SUMMARY | 2024-08-14 01:27 | XMS_ITS | Encounter Summary ---
Author Organization [facility] Address [address] [place] [id number] Care Team Providers Care Renal Medicine Specialist Name Role Phone Macario Lopez MD Primary Care Provider [phone] Reason for Referral * Imaging (Emergency) - New Request Specialty Diagnoses / Procedures Referred By Jeannette t Referred To Contact RADIOLOGY Procedures USV VANESSA DUPLEX LOW EXT LT Natalie Zendejas MD [address] [place] [address] Phone: tel: fax: Referral ID Status Reason Start Date Expiration Date V isits Requested Visits Authorized [id number] New Request 08/13/2024 08/13/2025 1 1 Reason for Visit * Reason Comments Leg Pain Encounter Details Date Type Department Care Team (Late st Contact Info) Description 08/13/2024 3:13 AM CDT - 08/13/2024 8:33 AM CDT Emergency [facility] Emergency [place], [place] [address] Natalie Zendejas MD [address] [place], [place] [id number] Kavita Dial MD [address] [place] [address] [id number] Leg Pain Discharge Disposition: Home or Self [...] Sex Assigned at Female 06/19/2024 12:34 AM 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 Legal Sex Female 4:36 PM CDT Gender [...] AM CDT Reanna Sandoval RN Active * [place] Suicide Severity Rating Scale (Screener/Recent Self-Report) Question [...] * Muscle and Bone Pain Discharge Instructions (Albanian) documented in this encounter Medications at Time [...] [facility] Pat.Name: BLAINE NEGRETE Pat.ID: [id number] .Date: 08/13/2024 Refer.MD: [id number], Nidia patten Exam Time: 6:44:00 AM Study [...] - 215 U/L 08/13/2024 6:40 AM CDT [facility] 08/13/2024 3:39 AM CDT Natalie Zendejas MD LABORATORY Final Result [facility] [address] [place] [id number], * D-DIMER, QUANTITATIVE (08/13/2024 3:39 AM CDT) D-DIMER 265 0 - 500 ng{FEU}/mL 08/13/2024 4:19 AM CDT [facility] Comment: D-Dimer values less than [...] CDT Natalie Zendejas MD LABORATORY Final Result [facility] [address] [place] [address], * (ABNORMAL) COMPREHENSIVE METABOLIC PANEL (08/13/2024 3:39 AM CDT) GLUCOSE 69(L) 70 - 99 MG/DL 08/13/2024 4:28 AM CDT [facility] BUN 9 7 - 18 MG/DL 08/13/2024 4:28 AM CDT [facility] CREATININE S/P/B 0.86 0.55 - 1.02 MG/DL 08/13/2024 4:28 AM CDT [facility] SODIUM S/P/B 138 136 - 145 MMOL/L 08/13/2024 4:28 AM CDT [facility] POTASSIUM S/P/B 3.2(L) 3.5 - 5.1 MMOL/L 08/13/2024 4:28 AM CDT [facility] CHLORIDE S/P/B 105 97 - 115 MMOL/L 08/13/2024 4:28 AM CDT [facility] CO2 28.8 21 - 32 MMOL/L 08/13/2024 4:28 AM CDT [facility] CALCIUM S/P/B 8.7 8.5 - 10.1 MG/DL 08/13/2024 4:28 AM CDT [facility] BILIRUBIN TOTAL S/P/B 0.8 0.2 - 1.2 MG/DL 08/13/2024 4:28 AM CDT [facility] Comment: THIS ASSAY IS NOT RECOMMENDED FOR PATIENTS UNDERGOING TREATMENT WITH ELTROMBOPAG DUE TO THE POTENTIAL FOR FALSELY ELEVATED RESULTS. TOTAL PROTEIN S/P/B 7.7 6.4 - 8.2 G/DL 08/13/2024 4:28 AM CDT [facility] ALBUMIN S/P/B 3.9 3.4 - 5.0 G/DL 08/13/2024 4:28 AM CDT [facility] AST 17 15 - 37 U/L 08/13/2024 4:28 AM CDT [facility] ALT 21 14 - 55 U/L 08/13/2024 4:28 AM CDT [facility] ALKALINE PHOSPHATASE S/P/B 89 50 - 136 U/L 08/13/2024 4:28 AM T [facility] ANION GAP 4.2 2 - 10 MMOL/L 08/13/2024 4:28 AM T [facility] BUN CREATININE RATIO 10.4 6 - 26 08/13/2024 4:28 AM T [facility] A/G RATIO 1.0 1.0 - 2.0 RATIO 08/13/2024 4:28 AM T [facility] GFR ESTIMATE >90 >90 ML/MIN/1.7 3 M2 08/13/2024 4:28 AM T [facility] Comment: NOTE: eGFR is not [...] us Natalie Zendejas MD LABORATORY Final Result [facility] [address] [place] [address], * CBC W/DIFF AUTOMATED (08/13/2024 3:39 AM CDT) [facility] WBC 9.79 4.5 - 11.0 x10'3/uL 08/13/2024 5:11 AM CDT [facility] RBC 4.85 4.20 - 5.40 x10'6/uL 08/13/2024 5:11 AM CDT [facility] HGB 14.5 12.0 - 16.0 G/DL 08/13/2024 5:11 AM CDT [facility] HCT 42.6 38.0 - 48.0 % 08/13/2024 5:11 AM CDT [facility] MCV 87.8 81.0 - 99.0 FL 08/13/2024 5:11 AM CDT [facility] MCH 29.9 27.0 - 31.0 PG 08/13/2024 5:11 AM CDT [facility] MCHC 34.0 32.0 - 36.0 G/DL 08/13/2024 5:11 AM CDT [facility] RDW 13.2 11.5 - 14.5 % 08/13/2024 5:11 AM CDT [facility] PLT 311 130 - 400 x10'3/uL 08/13/2024 5:11 AM CDT [facility] MPV 11.0 9.3 - 12.2 FL 08/13/2024 5:11 AM CDT [facility] DIFFERENTIAL TYPE AUTOMATED DIFFERENTIAL 08/13/2024 5:11 AM CDT [facility] NEUTROPHILS % 51.5 % 08/13/2024 5:11 AM CDT [facility] LYMPHOCYTES % 37.8 % 08/13/2024 5:11 AM CDT [facility] MONOCYTES % 7.5 % 08/13/2024 5:11 AM CDT [facility] EOSINOPHILS 2.3 % 08/13/2024 5:11 AM CDT [facility] BASOPHILS 0.6 % 08/13/2024 5:11 AM CDT [facility] IMMATURE GRANS % 0.3 % 08/14/19 5:11 AM CDT [facility] ABS. NEUTROPHILS 5.04 1.80 - 7.70 x10'3/uL 08/13/2024 5:11 AM CDT [facility] ABS. LYMPHOCYTES 3.70 1.00 - 4.80 x10'3/uL 08/13/2024 5:11 AM CDT [facility] ABS. MONOCYTES 0.73 0.24 - 0.86 x10'3/uL 08/13/2024 5:11 AM CDT [facility] ABS. EOSINOPHILS 0.23 0.04 - 0.36 x10'3/uL 08/13/2024 5:11 AM CDT [facility] ABS. BASOPHILS 0.06 0.01 - 0.08 x10'3/uL 08/13/2024 5:11 AM CDT [facility] ABS. IMMATURE GRANULOCYTES 0.03 0.00 - 0.49 x10'3/uL 08/13/2024 5:11 AM CDT [facility] 08/13/2024 3:39 AM CDT Natalie Zendejas MD LABORATORY Final Result [facility] [address] [place] [address], documented in this encounter Visit Diagnoses Diagnosis [...] RN) documented in this encounter Care Teams Renal Medicine Specialist Relationship Specialty Start Date End Date Macario Lopez MD [address] [place] [id number] PCP - General [facility]ILY PRACTICE 08/23/23 documented as of this encounter
[2024-08-14 01:48] LABS: SPREG INTERNAL CONTROL Positive; Serum Qual hCG Negative
[2024-08-14 01:59] LABS: Basophils Absolute Auto 0.1 K/mm3 (0.0-0.1); Basophils Percent Auto 0.5 % (0.2-1.2); Eosinophils Absolute Auto 0.2 K/mm3 (0-0.3); Eosinophils Percent Auto 1.7 % (0-4.4); Hematocrit 44.1 % (37.0-47.0); Hemoglobin 14.4 g/dL (12.0-15.0); Immature Granulocyte Absolute 0.06 K/mm3 (0.00-0.031); Immature Granulocyte Percent A 0.5 % (0-0.5); Lymphocytes Absolute Auto 2.73 K/mm3 (0.9-3.2); Mean Corpuscular HGB Conc 32.7 g/dl (32-36); Mean Corpuscular Hemoglobin 29.6 pg (26-34); Mean Corpuscular Volume 90.6 fl (80-100); Monocytes Absolute Auto 0.7 K/mm3 (0.1-0.6); Monocytes Percent Auto 5.7 % (2.6-8.5); Neutrophils Absolute Auto 9.2 K/mm3 (1.3-6.7); Neutrophils Percent Auto 70.6 % (45.5-73.1); Platelet Count Result 312 k/mm3 (150-375); Red Blood Count 4.87 M/mm3 (4.2-5.4); Red Cell Distribution Width 13.3 % (11.5-14.5)
[2024-08-14 02:03] LABS: Alanine Aminotransferase 17 U/L (6-35); Albumin Level 4.5 g/dL (3.5-5.1); Alkaline Phosphatase 88 U/L (38-126); Anion Gap 10 mmol/L (4-12); Aspartate Amino Transferase 24 U/L (14-36); Bilirubin,Total 0.4 mg/dL (0.2-1.3); Blood Urea Nitrogen 10 mg/dL (7-17); Calcium 9.3 mg/dL (8.4-10.2); Carbon Dioxide 26 mmol/L (22-30); Chloride 103 mmol/L (98-107); Estimated Glomerular Filt Rate > 60; Glucose 98 mg/dL (65-110); Lipase 51 U/L (23-300); Magnesium 1.9 mg/dL (1.6-2.3); Potassium 4.2 mmol/L (3.4-5.0); Sodium 139 mmol/L (137-145)
[2024-08-14 02:27] LABS: Add Urine Microscopic? YES; Bacteria Urine None Seen /hpf; Bilirubin Urine Negative (Negative); Blood Urine Negative (Negative); Color Urine Yellow (Yellow); Glucose Urine UA Negative (Negative); Ketones Urine Negative (Negative); Leukocyte Esterase Ur 1+ LEU/UL (Negative); Need Manual Microscopic Reviewed; Nitrate Urine Negative (Negative); Non Pathogenic Casts 0-2; Protein Urine Negative (Negative); Specific Grav Ur 1.022 (1.001-1.035); Squamous Epithelial Cell Urine Few /hpf (Few); Urobilinogen Urine 0.2 mg/dL (<2.0); pH Urine 5.5 (5.0-9.0)
[2024-08-14 02:28] LABS: Appearance Urine Sl Cloudy (Clear)
--- NOTE | 2024-08-14 02:38 | ED.ABDPAIN ---
HPI - Abdominal Pain General Chief Complaint: Abdominal Pain Stated Complaint: sharp pain in stomach Time Seen by Provider: 08/14/24 01:21 History of Present Illness HPI narrative: Patient is a 29 year old female who presents the emergency department this evening complaining of mid epigastric abdominal pain. Patient states that the pain started last night and states that she has also been having loose stools. Admits to nausea but denies any vomiting episodes. Denies any similar symptoms in the past. Patient states that the pain feels like a contraction and is intermittent, when it is at its worst it is a 10/10. No additional symptoms or concerns at this time. Related Data Home Medications ?Medication ?Instructions ?Recorded ?Confirmed ?Last Taken ?Type norethindrone 1 mg-ethinyl 1 tablet PO DAILY 03/28/23 11/04/23 Unknown History estradiol 20 mcg (21)-iron 75 mg (7) tablet (Blisovi Fe 05/17 (28)) Allergies Allergy/AdvReac Type Severity Reaction Status Date / Time Sulfa (Sulfonamide Allergy Unknown HIVES Verified 05/04/24 18:10 Antibiotics) Review of Systems Review of Systems: All systems are reviewed and are negative unless stated otherwise in the HPI. [facility] Past Medical History Medical History Smoker PTSD (post-traumatic stress disorder) Anxiety and depression Strep pharyngitis Wrist fracture UTI (urinary tract infection) Endometriosis Surgical History Surgical History No history of previous surgery Family History Family History Father Myocardial infarct Sibling Heart murmur Grandparent Diabetes mellitus Social History Social History Smoking packs per day: 1 Smoking cigarettes per day: 20.0 Years smoked: 10 Smoking pack-years: 10.00 Smoking status: Current every day smoker Tobacco type: cigarettes Second hand tobacco smoke exposure: Yes Substance use: never Lack of Transportation: No Lack of Food: Never True Current Housing: I Have Housing Concerned About Future Housing: No Difficulty Paying Gas/Electric Bills: No Difficulty Paying for Meds: No Currently Unemployed: No Education: Grade School Difficulty w/ Childcare or Family Care: No Gender identity (if verbalized by the patient): Female Spiritual care concerns: No Exam Narrative: General: Alert, awake, afebrile, in no acute distress. HEENT: PERRL, no rhinorrhea, no post nasal drip, oropharynx clear. Neck: Trachea midline, no JVD, no lymphadenopathy. Cardiovascular: Regular rate and rhythm, no murmurs, rubs or gallops, no peripheral edema. Respiratory: Clear to auscultation bilaterally, no tachypnea, no wheezing, no rhonchi, no rubs, no respiratory distress. Abdomen: Soft, tenderness to palpation over the mid epigastric and right upper quadrant, nondistended, no rebound, no guarding, no peritoneal signs. Musculoskeletal: No joint swelling or deformity, normal muscle tone. Skin: No rashes or petechia, no signs of infection. Psychiatric: Alert and oriented, normal behavior and judgment for situation. Neurological: Alert and oriented to person, place, and time. Follows all commands. No focal deficits, speech is clear and fluent. Course Vital Signs Vital signs: Vital Signs Temperature 97.6 F 08/14/24 00:18 Pulse Rate 72 08/14/24 00:18 Respiratory Rate 15 08/14/24 00:18 Blood Pressure 129/79 08/14/24 00:18 Pulse Oximetry 100 08/14/24 00:18 Oxygen Delivery Room Air 08/14/24 00:18 Temperature 97.6 F 08/14/24 00:18 Pulse Rate 72 08/14/24 00:18 Respiratory Rate 15 08/14/24 00:18 Blood Pressure 129/79 08/14/24 00:18 Pulse Oximetry 100 08/14/24 00:18 Oxygen Delivery Room Air 08/14/24 00:18 MDM - Abdominal Pain MDM Narrative Medical decision making narrative: The patient was evaluated by myself in the emergency department. History is obtained from patient who is an independent historian and physical exam was performed. External medical records were reviewed at this time. IV was established and pertinent tests were ordered. Patient was administered 1 L IV fluid bolus with normal saline, 4 mg of IV Zofran and 4 mg of IV morphine for pain. Laboratory results obtained revealing a leukocytosis of 13 otherwise unremarkable. Urinalysis revealed 1+ leuk esterase with 6-10 rbc's and 11-20 white blood cells. Obtaining imaging results including a CT abdomen and pelvis with IV contrast was discussed with the patient at this time, however, patient declined stating that she does not want wait multiple hours for CT scan and would like to come back in the morning for right upper quadrant ultrasound. Differential diagnosis considerations include peptic ulcer disease, gastritis, cholecystitis/biliary colic. Comorbidities impacting this visit include none. I have evaluated and discussed social determinants of health with the patient that could potentially impact subsequent diagnosis and treatment plans. On repeat assessment of the patient, reevaluation revealed that the patient is doing well and is in no acute distress. Patient symptoms have improved since she arrived to our emergency department. Repeat vital signs were all reviewed and noted to be stable. Differential diagnosis and treatment plan were discussed with the patient at bedside. Patient agrees with discussion and after shared medical decision making agrees with discharge. All questions were answered to the patient's satisfaction. Patient will follow up with GI/general surgery in 3-5 days. Script for Zofran was sent to patient's pharmacy to use as needed for nausea/vomiting. A script for cephalexin was also sent to patient's pharmacy to take as prescribed for UTI. Patient was also scheduled for a right upper quadrant ultrasound to be performed this morning at 7:00 a.m. to rule out gallbladder disease. Patient was provided with strict return precautions and instructed to return to the emergency department if any new or worsening symptoms develop. The patient was discharged in stable condition. Lab Data 08/14/24 01:34 08/14/24 01:34 Labs: Lab Results 08/14/24 08/14/24 Range/Units 01:34 01:40 WBC 13.0 H (4.5-10.0) K/mm3 RBC 4.87 (4.2-5.4) M/mm3 Hgb 14.4 (12.0-15.0) g/dL Hct 44.1 (37.0-47.0) % MCV 90.6 (80-100) fl MCH 29.6 (26-34) pg MCHC 32.7 (32-36) g/dl RDW 13.3 (11.5-14.5) % Plt Count 312 (150-375) k/mm3 MPV 11.0 H (7.4-10.4) fl Immature Gran % (Auto) 0.5 (0-0.5) % Neut % (Auto) 70.6 (45.5-73.1) % Lymph % (Auto) 21.0 (18.3-44.2) % [place] % (Auto) 5.7 (2.6-8.5) % Eos % (Auto) 1.7 (0-4.4) % Baso % (Auto) 0.5 (0.2-1.2) % Lymph # (Auto) 2.73 (0.9-3.2) K/mm3 [place] # (Auto) 0.7 H (0.1-0.6) K/mm3 Eos # (Auto) 0.2 (0-0.3) K/mm3 Baso # (Auto) 0.1 (0.0-0.1) K/mm3 Abs Immat Gran (auto) 0.06 H (0.00-0.031) K/mm3 Absolute Neuts (auto) 9.2 H (1.3-6.7) K/mm3 Absolute Nucleated RBC 0.000 (0.0-0.012) K/mm3 Nucleated RBC % 0.0 (0.0-0.2) % Sodium 139 (137-145) mmol/L Potassium 4.2 (3.4-5.0) mmol/L Chloride 103 (98-107) mmol/L Carbon Dioxide 26 (22-30) mmol/L Anion Gap 10 (4-12) mmol/L BUN 10 (7-17) mg/dL Creatinine 0.91 (0.7-1.0) mg/dL Estim Creat Clear Calc Not Reportable Estimated GFR > 60 (59 - ) Glucose 98 (65-110) mg/dL Calcium 9.3 (8.4-10.2) mg/dL Magnesium 1.9 (1.6-2.3) mg/dL Total Bilirubin 0.4 (0.2-1.3) mg/dL AST 24 (14-36) U/L ALT 17 (6-35) U/L Alkaline Phosphatase 88 (38-126) U/L Total Protein 8.0 (6.3-8.2) g/dL Albumin 4.5 (3.5-5.1) g/dL Lipase 51 (23-300) U/L Serum HCG, Qual Negative Urine Color Yellow (Yellow) Urine Appearance Sl cloudy (Clear) Urine pH 5.5 (5.0-9.0) Ur Specific [place] 1.022 (1.001-1.035) Urine Protein Negative (Negative) mg/dL Urine Glucose (UA) Negative (Negative) mg/dL Urine Ketones Negative (Negative) mg/dL Ur Blood (Man) Negative (Negative) Urine Nitrate Negative (Negative) Urine Bilirubin Negative (Negative) Urine Urobilinogen 0.2 (<2.0) mg/dL Add Ur Microanalysis Reviewed Leukocyte Esterase Rfl 1+ H (Negative) TANMAY/UL Urine RBC 6-10 H (0-2) /hpf Urine WBC 11-20 H (0-3) /hpf Ur Squamous Epith Cells Few (Few) /hpf Urine Bacteria None seen /hpf Urine Casts 0-2 Discharge Plan Discharge Clinical Impression: Epigastric abdominal pain, Nausea Patient Disposition: Home Condition: Improved Instructions: Antibiotic Form, Abdominal Pain (ED) Additional Instructions: Your scheduled for a right upper quadrant ultrasound to be performed at 7:00 a.m. You also provided with a GI/general surgeon referral instructed to set up a follow-up appointment to be seen within the next 3-5 days. You were prescribed an antibiotic to take as instructed for urinary tract infection and a nausea pill Zofran to use as needed for nausea/vomiting. Return to the emergency department if any new or worsening symptoms develop. Patient Language: Guyanese Prescriptions: New ondansetron 4 mg tablet,disintegrating 4 mg PO Q8H PRN (Reason: nausea and vomiting) Qty: 10 0RF cephalexin 500 mg capsule 500 mg PO Q12H 5 Days Qty: 10 0RF No Action clindamycin HCl 300 mg capsule 300 mg PO Q8H 7 Days Qty: 21 0RF triamcinolone acetonide 0.1 % cream 1 applic TOPICAL BID 7 Days Qty: 80 0RF norethindrone-e.estradiol-iron [Blisovi Fe 05/17 (28)] 1 mg-20 mcg (21)/75 mg (7) tablet 1 tablet PO DAILY azithromycin [Zithromax Z-Soto] 250 mg tablet See Rx Instructions .ROUTE .COMPLEX Qty: 6 0RF Rx Instructions: For 250 mg dose pack: take 500 mg today (day 1), then 250 mg for 4 days (days 2-5) prednisone 50 mg tablet 50 mg PO DAILY 5 Days Qty: 5 0RF benzonatate 100 mg capsule 100 mg PO BID PRN (Reason: cough) Qty: 14 0RF Other Ambulatory Orders: US abdomen limited (Routine) Timeframe: 20240814 Location: Determined by Patient Ordered By: Rachelle Solis Follow-up/Referrals: Macario Lopez MD [Primary Care Provider] - Time of Disposition: 02:45
--- NOTE | 2024-08-14 02:43 | PC.NURSE ---
Notified radiology of need for US to be scheduled outpt for 0700
[2024-08-14] MEDS: ONDANSETRON INJ 4 MG/2 ML VIAL IV PUSH (02:53)
[2024-08-14] MEDS: MORPHINE SULFATE (*CRX) 2 MG/ML INJ IV PUSH (02:53)
[2024-08-14] MEDS: SODIUM CHLORIDE 0.9% IV 1,000 ML 999 ML IV CONT (02:53)
[2024-08-14 04:09] VITALS: BP 121/73; PULSE 79; RESP 15; O2SAT 98
== END 2024-08-14 04:10 | disposition home or self-care (01) ==
PROVIDERS: Emergency Provider Emergency Medicine; PCP Emergency Medicine
DX: R10.13 Epigastric pain (principal); R11.0 Nausea; N80.9 Endometriosis, unspecified; F17.210 Nicotine dependence, cigarettes, uncomplicated; Z87.440 Personal history of urinary (tract) infections; Z79.3 Long term (current) use of hormonal contraceptives
CPT/HCPCS: 36415; 76705; 80053; 81001; 83690; 83735; 84703; 85025; 87086; 87186; 96361; 96374; 96375; 99284; J2270; J2405; J7030

== ENCOUNTER 2024-09-29 14:03 | Emergency (ER) | payer OTHER, SELFPAY ==
--- NOTE | 2024-09-29 14:19 | ED.SKABFB ---
HPI - Skin/Abscess/Foreign Bdy General Chief complaint: Skin/Abscess/Foreign Body Stated complaint: rash on body Time Seen by Provider: 09/29/24 14:04 Source: patient Mode of arrival: ambulatory Limitations: no limitations History of Present Illness HPI narrative: patient is a 29-year-old female presenting with complaint of rash. Patient reports pruritic rash to her chest, abdomen. Rash began 1 week ago. No similar rash among household members. No hx of similar rash. No new skin contacts, pets, medications, recent travel, change in personal hygiene products. No tx initiated [employer]. No additional complaints. Context: none Associated symptoms: denies other symptoms Treatments prior to arrival: none Related Data Allergies Allergy/AdvReac Type Severity Reaction Status Date / Time Sulfa (Sulfonamide Allergy Unknown HIVES Verified 09/29/24 14:25 Antibiotics) Review of Systems Review of Systems: CONSTITUTIONAL: Denies body aches, fever, chills, or sweats. EYES: Denies visual changes, redness, or discharge. ENT: Denies rhinorrhea, congestion, sore throat, or otalgia. CARDIOVASCULAR: Denies chest pain, palpitations, or edema. RESPIRATORY: Denies cough or dyspnea. GASTROINTESTINAL: Denies abdominal pain, nausea, vomiting, or diarrhea. GENITOURINARY: Denies dysuria or hematuria. SKIN: reports rash, itching MUSCULOSKELETAL: Denies back pain, joint pain, or myalgia. NEUROLOGIC: Denies headache, numbness, tingling, or weakness. PSYCH: Denies depression or anxiety. All systems reviewed & are unremarkable except as noted in HPI and below PMFSH Past Medical History Medical History Smoker PTSD (post-traumatic stress disorder) Anxiety and depression Strep pharyngitis Wrist fracture UTI (urinary tract infection) Endometriosis Surgical History Surgical History No history of previous surgery Family History Family History Father Myocardial infarct Sibling Heart murmur Grandparent Diabetes mellitus Social History Social History Smoking packs per day: 1 Smoking cigarettes per day: 20.0 Years smoked: 10 Smoking pack-years: 10.00 Smoking status: Current every day smoker Tobacco type: cigarettes Second hand tobacco smoke exposure: Yes Substance use: never Lack of Transportation: No Lack of Food: Never True Current Housing: I Have Housing Concerned About Future Housing: No Difficulty Paying Gas/Electric Bills: No Difficulty Paying for Meds: No Currently Unemployed: No Education: Grade School Difficulty w/ Childcare or Family Care: No Gender identity (if verbalized by the patient): Female Spiritual care concerns: No Exam Narrative: GENERAL: Well-appearing, well-nourished, and in no acute distress. HEAD: Normocephalic, atraumatic. EYES: EOMI. No redness or drainage. Conjunctivae normal. ENT: Mucous membranes pink and moist. NECK: Normal AROM. Supple. CHEST: No respiratory distress. HEART: Regular rate ABDOMEN: Soft, nontender MUSCULOSKELETAL: No bony tenderness. EXTREMITIES: Normal range of motion. No edema. SKIN: Clustered, erythematous, maculopapular eruption noted to anterior chest wall, abdomen without evidence of secondary bacterial skin infection. Warm, dry. Capillary refill normal. Normal skin turgor. NEURO: No focal deficits. Alert and oriented x3. Gait steady. PSYCH: Normal affect. No signs of depression or anxiety. Course Course Level of Care: Express Care Visit Vital Signs Vital signs: Vital Signs Temperature 97.7 F 09/29/24 14:21 Pulse Rate 74 09/29/24 14:21 Respiratory Rate 16 09/29/24 14:21 Blood Pressure 118/81 09/29/24 14:21 Pulse Oximetry 99 09/29/24 14:21 Oxygen Delivery Room Air 09/29/24 14:21 Temperature 97.7 F 09/29/24 14:21 Pulse Rate 74 09/29/24 14:21 Respiratory Rate 16 09/29/24 14:21 Blood Pressure 118/81 09/29/24 14:21 Pulse Oximetry 99 09/29/24 14:21 Oxygen Delivery Room Air 09/29/24 14:21 MDM - Skin/Abscess/Foreign Bdy Differential Diagnosis Differential diagnosis: Likely abscess of skin or subcutaneous tissue, viral exanthem, dermatophytosis, urticaria, herpes zoster, allergic reaction to drug, cellulitis, eczema, insect bites, impetigo and contact dermatitis Medical Records Attestation: I reviewed the patient's medical records. Discharge Plan Discharge Clinical Impression: Dermatitis Patient Disposition: Home Condition: Stable Instructions: Contact Dermatitis (DC) Additional Instructions: You may also take [id number] antihistamine such as Zyrtec, Sherrie, Claritin per the package instructions. Go straight to ER should your symptoms become worse or should any new symptoms develop Patient Language: Romanian Prescriptions: New triamcinolone acetonide 0.025 % cream 1 applic topical TID Qty: 15 0RF prednisone 20 mg tablet 20 mg PO DAILY Qty: 18 0RF Rx Instructions: Take 3 tabs x 3 days, 2 tabs x 3 days, 1 tab x 3 days Follow-up/Referrals: Macario Lopez MD [Primary Care Provider] - 09/29/24 Time of Disposition: 14:32
[2024-09-29 14:21] VITALS: BP 118/81; PULSE 74; RESP 16; TEMP 36.5; O2SAT 99
== END 2024-09-29 14:48 | disposition home or self-care (01) ==
PROVIDERS: Emergency Provider Registered Nurse; PCP Emergency Medicine
DX: L30.9 Dermatitis, unspecified (principal); F17.210 Nicotine dependence, cigarettes, uncomplicated; N80.9 Endometriosis, unspecified
CPT/HCPCS: 99213; G0463

== ENCOUNTER 2024-11-18 19:14 | Emergency (ER) | payer OTHER, SELFPAY ==
--- NOTE | 2024-11-18 19:17 | ED_ITS ---
HPI - URI/Sore Throat General Chief Complaint: Upper Respiratory Infection Stated Complaint: Sinus Time Seen by Provider: 11/18/24 19:16 Source: patient Mode of arrival: ambulatory Limitations: no limitations History of Present Illness HPI Narrative: Patient is a 29-year-old female who presents with headache, body ache, fever, runny nose, cough, nausea since midnight. Patient has taken [id number] medication with no relief. Denies any vomiting or diarrhea. Denies any known sick contacts. Related Data Home Medications ?Medication ?Instructions ?Recorded ?Confirmed ?Last Taken ?Type No Home Medications 11/18/24 11/18/24 Unknown History Allergies Allergy/AdvReac Type Severity Reaction Status Date / Time Sulfa (Sulfonamide Allergy Unknown HIVES Verified 11/18/24 19:18 Antibiotics) Review of Systems Review of Systems: All systems reviewed & are unremarkable except as noted in HPI and below Constitutional: Constitutional: Denies chills, Denies fatigue, Reports fever (s), Reports headache(s), Denies malaise and Denies weakness Eyes: Eyes: Denies blurry vision, Denies itchy eyes and Denies loss of vision ENT: Denies otalgia, Reports headache(s), Reports nasal congestion, Denies sinus pain and Denies sore throat Cardiovascular: Cardiovascular: Denies chest pain, Denies irregular heart rhythm and Denies dyspnea Respiratory: Respiratory: Reports cough and Denies dyspnea Gastrointestinal: Gastrointestinal: Denies abdominal pain, Denies diarrhea, Reports nausea and Denies vomiting Musculoskeletal: Musculoskeletal: Denies back pain, Reports myalgias and Denies arthralgias Integumentary/Breasts: Skin/Breast: Denies pruritus and Denies rash Neurologic: Reports headache(s), Denies loss of vision and Denies weakness Psychiatric: Psychiatric: Reports no additional psychiatric complaints Endocrine: Endocrine: Denies fatigue Allergic/Immunologic: Allergic/Immunologic: Denies itchy eyes PMFSH Past Medical History Medical History Smoker PTSD (post-traumatic stress disorder) Anxiety and depression Strep pharyngitis Wrist fracture UTI (urinary tract infection) Endometriosis Surgical History Surgical History No history of previous surgery Family History Family History Father Myocardial infarct Sibling Heart murmur Grandparent Diabetes mellitus Social History Social History Smoking packs per day: 1 Smoking cigarettes per day: 20.0 Years smoked: 10 Smoking pack-years: 10.00 Smoking status: Current every day smoker Tobacco type: cigarettes Second hand tobacco smoke exposure: Yes Substance use: never Lack of Transportation: No Lack of Food: Never True Current Housing: I Have Housing Concerned About Future Housing: No Difficulty Paying Gas/Electric Bills: No Difficulty Paying for Meds: No Currently Unemployed: No Education: Grade School Difficulty w/ Childcare or Family Care: No Gender identity (if verbalized by the patient): Female Spiritual care concerns: No Comments At time of signature, agree with nursing past medical, surgical, social and family history. There is no relevant family history pertinent to the presenting complaint. Exam Const: General: cooperative, no acute distress, ill appearing acutely, tired appearing, uncomfortable and well nourished Nutritional Appearance: well nourished Orientation/consciousness: patient oriented x3 Limitations: no limitations HENMT: Head: normal to inspection, normocephalic and atraumatic Ears: hearing grossly normal bilaterally, external ears normal, TM's normal bilaterally, EAC's normal and no periauricular adenopathy Face/Nose/Sinus: Normal external nose present, Abnormal mucous membranes and turbinates present erythematous bilateral and diffuse, normal facial exam, sinuses nontender and face symmetric Face and sinus: normal facial exam, sinuses nontender and face symmetric Mouth: Yes Normal oral and palatal mucosa present, Yes lip normal, Yes tongue normal, Yes Normal salivary glands and ducts present, Yes oropharynx normal and Yes moist mucous membranes Teeth and gingiva: dentition normal Throat: posterior oropharynx normal, tonsils normal and uvula midline Eyes: General: appearance normal, both eyes and all related structures Alignment and Position: alignment normal and position normal Periorbital: periorbital findings normal Eyelids: eyelids normal Pupils: Equal, round and reactive pupils present Neck: Neck: normal visual inspection, full ROM, no lymphadenopathy and supple Chest: Chest palpation & inspection: normal inspection of the chest and normal palpation of entire chest wall Resp: Effort & Inspection: normal respiratory effort and able to speak in complete sentences Auscultation: clear to auscultation bilaterally, no crackles, no rales, no rhonchi and no wheezes Cardio: Rate: regular rate Rhythm: regular rhythm Heart sounds: S1 normal heart sound present and S2 normal heart sound present GI: Inspection: normal to inspection Skin: General skin exam: normal color and no rashes or lesions noted Neuro: General: patient oriented x3 and moves all extremities Cranial nerves: Yes Equal, round and reactive pupils present Speech: normal speech Gait exam (Neuro): Normal gait present Extrem: General: normal to inspection, full ROM and no edema Psych: Appearance: grossly normal and well kempt Mental Status: mental status grossly normal Speech and movement: Normal speech and movement present Affect: normal affect Attitude: cooperative Thought process: Normal thought process present Course Course Emergency Course: Discharge instructions reviewed with patient, as well as provided in writing per nursing staff. The instructions also include specific and strict return/GO TO THE ER as well as f/u information. All questions have been answered, and the patient deny any further questions with discharge and discharge plan. Portions of this record may have been created with voice recognition software Level of Care: Express Care Visit Vital Signs Vital signs: Vital Signs Temperature 36.9 C 11/18/24 19:20 Pulse Rate 88 11/18/24 19:20 Respiratory Rate 16 11/18/24 19:20 Blood Pressure 110/68 11/18/24 19:20 Pulse Oximetry 100 11/18/24 19:20 Oxygen Delivery Room Air 11/18/24 19:20 Temperature 36.9 C 11/18/24 19:20 Pulse Rate 88 11/18/24 19:20 Respiratory Rate 16 11/18/24 19:20 Blood Pressure 110/68 11/18/24 19:20 Pulse Oximetry 100 11/18/24 19:20 Oxygen Delivery Room Air 11/18/24 19:20 Reviewed MDM - URI/Sore Throat MDM Narrative Medical decision making narrative: Pt well hydrated appearing, in no respiratory distress, hemodynamically stable. Recommend supportive care. The patient is stable at time of discharge the clinical impression was discussed and the patient was given the opportunity to ask questions, which were addressed as completely as possible given the information available at present. Anticipatory guidance and return to care precautions were discussed and the importance of primary care follow-up was stressed and encouraged. The patient voiced understanding of the plan, indications to return, and the need for follow-up. Exam findings show no acute concerns or changes Patient is appropriate for outpatient treatment and follow-up. Differential diagnosis considered: Norman virus, strep pharyngitis, allergic rhinitis, upper respiratory tract infection, sinusitis, rhinosinusitis, nasopharyngitis. viral pharyngitis, otitis media, otitis externa, otitis effusion, foreign body, cerumen impaction, viral syndrome, and influenza.? Medical Records Attestation: I reviewed the patient's medical records. Lab Data Attestation: I reviewed the patient's lab results. Lab results narrative: FLU negative Labs: Lab Results 11/18/24 Range/Units 19:36 POC SARS CoV-2 Ag Positive (Negative) Discharge Plan Discharge Clinical Impression: COVID Patient Disposition: Home Condition: Stable Instructions: COVID-19 (Coronavirus Disease 2019) (ED) Additional Instructions: Your rapid COVID test was positive today. The following recommendations have been made by the CDC and local Health Departments, regarding COVID-19: -wear a mask for 5 days, as long as your fever free for 24 hours you could return to work -Majority of mild to moderate cases can be treated at home, without hospitalization or prescription medications You do not need a negative test result to return to work/school, assuming the above recommendations have been met and you are not symptomatic. Treating symptoms for mild to moderate cases may include: -Alternate Tylenol and Motrin per package directions for fever or pain. -Antihistamine medication such as Benadryl/Zyrtec at night and Claritin/Sherrie during the day can help improve symptoms. -Use Flonase twice a day for 5 days then daily to help reduce the inflammation and dry up your sinuses. -You can also use Sudafed behind the pharmacy counter(12 or 24 hour). Be sure to drink plenty of water with these medications at least 8 ounces with every dose and it is important to drink 8 to 10 glasses of water per day. Water is a natural decongestant Take Motrin alternating with Tylenol for pain and fever alternating every 3 hours. 8 AM: Tylenol 11 AM: Ibuprofen 2 PM: Tylenol 5 PM: Ibuprofen 8 PM: Tylenol 11 PM: Ibuprofen 2 AM: Tylenol 5 AM: Ibuprofen Common Adult Symptoms: Fever/chills Cough Shortness of breath Fatigue, muscle aches Headache Loss of taste/smell Sore throat, congestion, runny nose GI symptoms (nausea, vomiting, diarrhea) Common Pediatric Symptoms Cough Fever GI symptoms (diarrhea, upset stomach, nausea, vomiting) Symptoms may differ in severity however, most cases do not require hospitalization. WHEN TO SEEK ER EVALUATION/TREATMENT: Severe/persistent shortness of breath or difficulty breathing Elevated, persistent fevers without resolution with fever-reducing medications Chest pain Extreme fatigue/lethargy Complications of pre-existing disease Patient Language: Macedonian Prescriptions: No Action No Home Medications Follow-up/Referrals: Macario Lopez MD [Primary Care Provider] - 3 Days Stand Alone Forms: Work/School Release IP Time of Disposition: 19:42
[2024-11-18 19:20] VITALS: BP 110/68; PULSE 88; RESP 16; TEMP 36.9; O2SAT 100
[2024-11-18 19:42] LABS: EDCOVIDSCREEN Positive (Negative)
[2024-11-18 19:43] LABS: EDINFLUASCREEN Negative (Negative); EDINFLUBSCREEN Negative (Negative)
== END 2024-11-18 19:50 | disposition home or self-care (01) ==
PROVIDERS: Emergency Provider Nurse Practitioner Family; PCP Emergency Medicine
DX: U07.1 COVID-19 (principal); F17.210 Nicotine dependence, cigarettes, uncomplicated; N80.9 Endometriosis, unspecified
CPT/HCPCS: 87426; 87804; 99212; G0463

== ENCOUNTER 2025-02-21 15:37 | Emergency (ER) | payer OTHER, SELFPAY ==
[2025-02-21 16:00] VITALS: BP 131/89; PULSE 95; RESP 18; TEMP 36.8; O2SAT 98
--- NOTE | 2025-02-21 16:21 | ED_ITS ---
HPI - Extremity Injury (Lower) General Chief Complaint: Extremity Injury, Lower Stated Complaint: R knee pain Time Seen by Provider: 02/21/25 16:13 Source: patient and RN notes reviewed Mode of arrival: ambulatory Limitations: no limitations History of Present Illness HPI Narrative: 29-year-old female presents with concern for right knee pain. 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 She also scraped her hands. She reports pain with flexion and weight-bearing. MD complaint: knee injury Related Data Allergies Allergy/AdvReac Type Severity Reaction Status Date / Time Sulfa (Sulfonamide Allergy Unknown HIVES Verified 02/21/25 15:59 Antibiotics) Review of Systems Review of Systems: CONSTITUTIONAL: Denies malaise, chills, sweats, or fever. SKIN: Denies rash or itching, open skin, laceration, abrasion, redness, warmth MUSCULOSKELETAL: Reports right knee pain and swelling NEUROLOGIC: Denies numbness, weakness All systems reviewed & are unremarkable except as noted in HPI and below PMFSH Past Medical History Medical History Smoker PTSD (post-traumatic stress disorder) Anxiety and depression Strep pharyngitis Wrist fracture UTI (urinary tract infection) Endometriosis Surgical History Surgical History No history of previous surgery Family History Family History Father Myocardial infarct Sibling Heart murmur Grandparent Diabetes mellitus Social History Social History Smoking packs per day: 1 Smoking cigarettes per day: 20.0 Years smoked: 10 Smoking pack-years: 10.00 Smoking status: Current every day smoker Tobacco type: cigarettes Second hand tobacco smoke exposure: Yes Substance use: never Lack of Transportation: No Lack of Food: Never True Current Housing: I Have Housing Concerned About Future Housing: No Difficulty Paying Gas/Electric Bills: No Difficulty Paying for Meds: No Currently Unemployed: No Education: Grade School Difficulty w/ Childcare or Family Care: No Gender identity (if verbalized by the patient): Female Spiritual care concerns: No Comments At time of signature, agree with nursing past medical, surgical, social and family history. There is no relevant family history pertinent to the presenting complaint Exam Narrative: GENERAL: Well-appearing, well-nourished, and in no acute distress. HEAD: Normocephalic, atraumatic. EYES: PERRLA, conjunctivae clear NECK: Supple. CHEST: Speaks in full sentences. No respiratory distress. HEART: Regular rate and rhythm. Normal and equal peripheral pulses. EXTREMITIES: Right knee has grossly normal strength and sensation. Range of motion limited flexion, likely due to pain. Mild anterior and posterior edema without erythema, warmth or ecchymosis. Normal sensation with sensitivity to light touch and pain. Anterior tenderness. No open wounds, no skin tenting, no devitalized tissue or atrophy, no trophic changes, no obvious deformity, alignment normal, nearby joints and structures intact. Distal pulses palpable and equal bilaterally, skin warm, dry, pink. Capillary refill less than 3 seconds. SKIN: Warm, dry, no rash. NEURO: Alert and oriented x3. PSYCH: Normal mood and affect Course Course Emergency Course: Patient is aware of diagnosis, understands and agrees to treatment plan. Anticipatory guidance given. Patient agrees to follow-up as directed and is aware of reasons to seek care at the emergency department. Patient does not want an x-ray today. She says ?I know it is not broken?. Patient given crutches and John wrap. Hand wound cleansed and dressed. Portions of this record may have been created with voice recognition software Level of Care: Express Care Visit Vital Signs Vital signs: Vital Signs Temperature 98.2 F 02/21/25 16:00 Pulse Rate 95 02/21/25 16:00 Respiratory Rate 18 02/21/25 16:00 Blood Pressure 131/89 02/21/25 16:00 Pulse Oximetry 98 02/21/25 16:00 Oxygen Delivery Room Air 02/21/25 16:00 Temperature 98.2 F 02/21/25 16:00 Pulse Rate 95 02/21/25 16:00 Respiratory Rate 18 02/21/25 16:00 Blood Pressure 131/89 02/21/25 16:00 Pulse Oximetry 98 02/21/25 16:00 Oxygen Delivery Room Air 02/21/25 16:00 Reviewed. MDM - Extremity Injury (Lower) MDM Narrative Medical decision making narrative: The patient was evaluated by myself in the [facility] care. History is obtained from patient who is an independent historian and physical exam was performed.? Available medical records were reviewed at this time. ? Exam findings show no acute concerns or changes; patient is non-toxic appearing and is in no distress. Patient is appropriate for outpatient treatment and follow-up. ? I have evaluated and discussed social determinants of health with the patient that could potentially impact subsequent diagnosis and treatment plans. ? Patients injury and pain is consistent with musculoskeletal etiology. No signs of neurological or vascular compromise on exam. Compartments and tissues are soft without signs of compartment syndrome. Pain is felt appropriate for further evaluation on an outpatient basis. Critical Care Time Critical Care Time Critical Care Time: No Discharge Plan Discharge Clinical Impression: Acute knee pain Patient Disposition: Home Condition: Stable Instructions: Knee Pain (ED) Additional Instructions: Avoid activities that cause pain until the pain subsides. Ice to the area 20-30 minutes 4-6 times a day Elevate above heart Elastic wrap or orthopedic splint as directed for comfort for the next 5-7 days Crutches as directed if needed Tylenol for lesser pain Ibuprofen regularly for the next 2-3 days for the inflammation Follow up with your primary care provider if the condition is not improving within 1 week. If the condition worsens with numbness, tingling, decrease sensation with weakness seek treatment in the emergency room immediately. Wash your hand wound twice daily with gentle soap and water, do not use hydrogen peroxide or alcohol. Covered with nonstick dressing until it is scabbed. If you notice any redness, swelling, warmth surrounding the wound you should be evaluated Patient Language: South African Prescriptions: New ibuprofen 800 mg tablet 800 mg PO Q6H PRN (Reason: pain) Qty: 30 0RF Follow-up/Referrals: Macario Lopez MD [Primary Care Provider, Family Practice] Stand Alone Forms: Work/School Release IP Time of Disposition: 16:29
--- OUTSIDE RECORDS SUMMARY | 2025-02-21 17:02 | XMS_ITS | Clinical Summary ---
Author Organization [facility] Address [address] [place] [address] Care Team Providers Care Distribution Engineering Technologist Name Role Phone Eduarda Valencia MD Unavailable [phone] Macario Lopez MD Primary Care Provider [phone] Allergies Active Allergy Reactions Criticality Noted Date Comments Sulfa (Sulfonamide Antibiotics) Hives Medium 05/30 Medications traZODone (DESYREL) 150 mg tabletIndicatio ns:insomnia associated with depression Take 1 tablet (150 mg total) by mouth nightly 1 Active sertraline (ZOLOFT) 50 mg tablet sertraline 50 mg tablet Active predniSONE (DELTASONE) 10 mg tablet Take 2 tablets (20 mg) by mouth 2 (two) times a day 20 tablet 5 Active azithromycin (Zithromax Z-Soto) 250 mg tablet Take 1 tablet (250 mg total) by mouth daily Take first 2 tablets together, then 1 every day until finished. 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 Encounters Date Type Department Care Team Description 02/12/2025 8:41 PM CDT - 02/12/2025 9:01 PM CDT Emergency [facility] Emergency Department [address] [place] [address] Bronchitis (Primary Dx) Discharge Disposition: Discharge to home or self care from Last 3 Months Immunizations Immunization Administration Dates Next Due Tdap 07/07/2020 Surgical History Surgery Date Site/Laterality Comments FRACTURE SURGERY 06/26/2020 - 07/26/2020 LAPAROSCOPIC ENDOMETRIOSIS FULGURATION 04/28/2018 - 03/30 Medical History Medical History Date Comments Cerebral palsy Family History Medical History Relation Name Comments Heart attack Father Anesthesia problems Neg Hx Relation Name Status Comments Father Social History Tobacco Use Types Packs/Day Years Used Date Smoking Tobacco: Every Day Cigarettes 0.5 12.8 Started: 2012 Smokeless Tobacco: Never Tobacco Cessation:Ready [...] making you feel afraid or unsafe? 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 Gender Identity Not on file Sexual Orientation Not on file Obstetrics History Para Term AB IAB SAB Ectopic Multiple Livin g Live Births 1 Date Outcome GA Total Labor Labor/2nd/3rd Weight Sex Type Anes PTL Rina A1 A5 Name Clin Last Filed Vital Signs Vital Sign Reading Time Taken Comments Blood Pressure 124/83 02/12/2025 7:34 PM CDT Pulse 90 02/12/2025 7:34 PM CDT Temperature 36.9 C (98.4 F) 02/12/2025 7:34 PM CDT Respiratory Rate 18 02/12/2025 7:34 PM CDT Oxygen Saturation 96% 02/12/2025 7:34 PM CDT Inhaled Oxygen Concentration - - Weight 67 kg (147 lb 11.3 oz) 02/12/2025 7:34 PM CDT Height 154.9 cm (5' 1) 12/16/2023 11:32 AM CDT Body Mass Index 27.91 12/16/2023 11:32 AM CDT Plan of Treatment Health Maintenance Due Date Last Done Comments Cervical Cancer Screening 1997 Depression Screening 1997 Hepatitis C Screening 1997 Varicella Vaccines (1 of 2 - 13+ 2-dose series) 2010 Hepatitis B Screening 2015 Regular Well Visit/Exam 18-64 2015 Pneumococcal vaccine <65 (1 of 2 - PCV) 2016 HPV Vaccines (1 - 3-dose SCDM series) 2024 Covid-19 Vaccine (2 - 2024- season) 2024 Influenza Vaccine (#1) 2024 DTaP/Tdap/Td Vaccine (3 - Td or Tdap) 08/13/2032, 07/07/2020 Medical Devices Implanted Type Area Network And Threat Support Specialist Device Identifier Shelf Expiration Date Model / Serial / Lot Supercondylar Nail T2 Scn System Implanted:Qty: 1 on 07/08/2020 by Cherry Hdez MD at [facility] Nail Left: Femur [employer] [id number] 02/25/2023 1826-1034S / 0 / [id number] [employer] 189-5075s 5mm 75mm Lock Full Thread Screw Bone Titanium Sterile T2 Nail - S0 - [id number] Implanted:Qty: 1 on 07/08/2020 by Cherry Hdez MD at [facility] Screw Left: Femur [employer] 04/27/2025 1896-5075S / 0 / [id number] [employer] 1896-5075s 5mm 75mm Lock Full Thread Screw Bone Titanium Sterile T2 Nail - S0 - [id number] Implanted:Qty: 1 on 07/08/2020 by Cherry Hdez MD at [facility] Screw Left: Femur [employer] [id number] 03/27/2025 1896-5075S / 0 / [id number] [employer] 1896-5070s 5mm 70mm Lock Full Thread Screw Bone Titanium Sterile T2 Nail - S0 - [id number] Implanted:Qty: 1 on 07/08/2020 by Cherry Hdez MD at [facility] Screw Left: Femur [employer] [id number] 09/26/2023 1896-5070S / 0 / [id number] [employer] 1896-5037s 5mm 37.5mm Lock Full Thread Screw Bone Titanium Sterile T2 Nail - S0 - [id number] Implanted:Qty: 1 on 07/08/2020 by Cherry Hdez MD at [facility] Screw Left: Femur [employer] [id number] 12/26/2024 1896-5037S / 0 / [id number] [employer] 1896-5032s 5mm 32.5mm Lock Full Thread Screw Bone Titanium Sterile T2 Nail - S0 - [id number] Implanted:Qty: 1 on 07/08/2020 by Cherry Hdez MD at [facility] Screw Left: Femur [employer] [id number] 02/25/2025 1896-5032S / 0 / [id number] [employer] [id number] 5mm 60mm Low Profile Internal Hex Femur Screw Bone Trigen - [id number] Implanted:Qty: 1 on 06/26/2021 by Eduarda Valencia MD at [facility] Left: Femur [employer] [id number] / / [employer]Or tho [id number] 5mm 55mm Low Profile Internal Hex Femur Screw Bone Trigen - [id number] Implanted:Qty: 1 on 06/26/2021 by Eduarda Valencia MD at [facility] Left: Femur [employer] [id number] / / [employer]Or tho [id number] 5mm 32.5mm Low Profile Internal Hex Femur Screw Bone Trigen - [id number] Implanted:Qty: 1 on 06/26/2021 by Eduarda Valencia MD at [facility] Left: Femur [employer] [id number] / / [employer]Or tho [id number] 5mm 27mm Low Profile Internal Hex Femur Screw Bone Trigen - [id number] Implanted:Qty: 1 on 06/26/2021 by Eduarda Valencia MD at [facility] Left: Femur [employer] [id number] / / [employer]Or tho [id number] Trigen [place]-Nail 13mm 34cm Implant Set Retrograde Femur Nail - [id number] Implanted:Qty: 1 on 06/26/2021 by Eduarda Valencia MD at [facility] Left: Femur [employer] [id number] 09/07/2028 [id number] / / [id number] [employer]Or tho [id number] 5mm 40mm Low Profile Internal Hex Femur Screw Bone Trigen - [id number] Implanted:Qty: 1 on 06/26/2021 by Eduarda Valencia MD at [facility] Left: Femur [employer]o [id number] / / Explanted Type Area Network And Threat Support Specialist Device Identifier Shelf Expiration Date Model / Serial / Lot [employer] 1806-49s Jayden T2 3mm 285mm Retrograde Supracondylar Wire Fixation - S0 - [id number] Explanted:Qty: 1 on 07/08/2020 at [facility] Wire Left: Femur [employer] [id number] 12/26/2024 180S / 0 / [id number] Description:Provisional Fixa tion; Temporary Placement, ONLY; NOT AN IMPLANT [employer]Or tho [id number] 5mm 72mm Low Profile Internal Hex Femur Screw Bone Trigen - [id number] Explanted:Qty: 1 on 06/26/2021 by Eduarda Valencia MD at [facility] Left: Femur [employer]o [id number] / / Procedures Procedure Name Priority Date/Time Associated Diagnosis Comments XR CHEST PA LATERAL 2 VIEWS ED 02/12/2025 8:45 PM CDT INFLUENZA A/B, RSV, AND COVID-19 PCR STAT 02/12/2025 7:36 PM CDT from Last 3 Months Results * XR Chest Pa Lateral 2 Views (02/12/2025 8:45 PM CDT) Anatomical Region Laterality Modality Body, Chest N/A Computed Radiogr aphy 02/12/2025 9:12 PM CDT Narrative 02/12/2025 9:12 PM CDT EXAM DESCRIPTION: XR CHEST PA LATERAL 2 VIEWS REASON FOR STUDY: Cough Pt presents to ED with complaints of cough x2-3 weeks. Pt also complaining of generalized body pain from coughing so much . The patient denies hest pain, dyspnea, wheezing or hemoptysis. The patient denies abdominal or flank pain, anorexia, nausea or vomiting, dysphagia, change in bowel habits or black or bloody stools or weight loss. Smoker TECHNIQUE: PA and lateral radiographic view(s) of the chest. COMPARISON: Chest comparison 05/04/2021. FINDINGS: LUNGS: No focal opacity, pleural effusion, or pneumothorax. HEART/MEDIASTINUM: Cardiac silhouette normal in size. Mediastinal and hilar contours appear normal. LINES/TUBES: None. BONES: No acute osseous abnormality. IMPRESSION: No acute cardiopulmonary abnormality. THIS IS AN ELECTRONICALLY VERIFIED FINAL REPORT 02/12/2025 9:12 PM - Electronically signed by Cleveland Pritchard M.D. LC: STEPHANE Report ID: [id number] Reading Location: [id number] Procedure Note Анна Pritchard MD - 02/12/2025 EXAM DESCRIPTION: XR CHEST PA LATERAL 2 VIEWS REASON FOR STUDY: Cough Pt presents to ED with complaints of cough x2-3 weeks. Pt also complainingof generalized body pain from coughing so much . The patient denies hestpain, dyspnea, wheezing or hemoptysis. The patient denies abdominal or flankpain, anorexia, nausea or vomiting, dysphagia, change in bowel habits or blackor bloody stools or weight loss. Smoker TECHNIQUE: PA and lateral radiographic view(s) of the chest. COMPARISON: Chest comparison 05/04/2021. FINDINGS: LUNGS: No focal opacity, pleural effusion, or pneumothorax. HEART/MEDIASTINUM: Cardiac silhouette normal in size. Mediastinal andhilar contours appear normal. LINES/TUBES: None. BONES: No acute osseous abnormality. IMPRESSION: No acute cardiopulmonary abnormality. THIS IS AN ELECTRONICALLY VERIFIED FINAL REPORT 02/12/2025 9:12 PM - Electronically signed by Cleveland Pritchard M.D. LC: STEPHANE Report ID: [id number] Reading Location: [id number] [facility] XR PROCEDURE S Final Result * Influenza A/B, RSV, and COVID-19 PCR Nasopharyngeal (02/12/2025 7:36 PM CDT) COVID-19 RNA Negative Negative Influenza A RNA Negative Negative [facility] ([place]) Influenza B RNA Negative Negative [facility] ([place]) RSV RNA Negative Negative [facility] ([place]) Comment: Interpretive data: Testing performed by [facility]. This test is performed using the [employer] Xpert Xpress CoV-2/Flu/RSV plus assay. This is a multiplex, real- time reverse transcriptase PCR assay intended for the qualitative detection of nucleic acid from SARS-CoV-2, influenza A, influenza B, and respiratory syncytial virus. This assay has been cleared by the [place] Food and Drug administration. The performance characteristics have been verified by the [facility]. Results must be considered in the clinical context, and a negative result does not rule out infection. Interpretive Data last revised 2023 Nasopharyngeal 02/12/2025 7: 36 PM CDT 02/12/2025 7:42 PM CDT Narrative THEODORE NEWMAN ([place]) - 02/12/2025 8:22 PM CDT Is the Patient experiencing symptoms consistent with COVID?->No us [facility] MICROBIOLOGY - GENERAL ORDERABLES Final Result [facility] NEW[facility] ([place]) [address] [facility] [place] [address] from Last 3 Months Insurance [facility] PLAN [facility] [place] [place] [address] [place] [address] Advance Directives For more information, please contact: [phone] * Full Code (Latest Code Status on File) Date Activated Date Inactivated Comments 06/26/2021 2:37 PM 07/01/2021 3:18 PM * Full Code Date Activated Date Inactivated Comments 07/08/2020 3:09 AM 07/09/2020 6:45 PM Healthcare Agents on File Name Relationship Healthcare Agent Lichahi p Communication Ani Turnerparent Health Care Agent Care Teams Distribution Engineering Technologist Relationship Specialty Start Date End Date Macario Lopez MD [address] [place] [id number] PCP - General Emergency Medicine 12/16/23 Eduarda Valencia MD Referring Physician Orthopedic Surgery 07/09/20
--- OUTSIDE RECORDS SUMMARY | 2025-02-21 17:02 | XMS_ITS | Encounter Summary ---
Author Organization [facility] Address [address] [place] [address] Care Team Providers Care Hide Paster Name Role Phone Eduarda Valencia MD Unavailable Bonnie Meneses E LEARNING COORDINATOR Primary Care Provider [phone] No, Physician Primary Care Provider [phone] Bonnie Meneses E LEARNING COORDINATOR Primary Care Provider [phone] Ellie, Physician Primary Care Provider [phone] Bonnie Meneses NP Primary Care Provider [phone] Macario Lopez MD Primary Care Provider [phone] Encounter Details Date Type Department Care Team (Late st Contact Info) Description 04/26/2021 Documentation [facility] Orthopedic Trauma [address] [facility] 4th Floor [address] [place] [id number] Dwight Palmer MD [facility] [address] [facility] [place] [facility] [place] [address] Social History Tobacco Use Types Packs/Day Years [...] on file 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 05/14/2021 05/18/2021 09/11/2021 3:05 AM C DT documented as of this encounter Care Teams Hide Paster Relationship Specialty Start Date End Date Bonnie Meneses NP PCP - General 09/07/20 05/03/21 No, Physician PCP - General 05/04/21 05/04/21 Bonnie Meneses NP PCP - General 05/05/21 05/21/21 No, Physician PCP - General 05/22/21 06/25/21 Bonnie Meneses NP PCP - General 06/26/21 12/15/23 Macario Lopez MD [address] [place] [id number] PCP - General Emergency Medicine 12/16/23 Eduarda Valencia MD Referring Physician Orthopedic Surgery 07/09/20 documented as of this encounter
--- OUTSIDE RECORDS SUMMARY | 2025-02-21 17:02 | XMS_ITS | Clinical Summary ---
Author Organization [facility] Address [address] [place] [address] Care Team Providers Care Dimension Warehouse Supervisor Name Role Phone None, Provider MD Primary Care Provider Unavaila ble Allergies Active Allergy Reactions Criticality Noted Date Comments Sulfa Antibiotics Hives 08/23/2023 Medications omeprazole (PRILOSEC) 20 MG capsule Take 1 capsule (20 mg total) by mouth daily. 30 capsule 08/17/2024 Active sucralfate (CARAFATE) 1 G tablet Take 1 tablet (1 g total) by mouth 4 (four) times daily as needed. 30 tablet 08/17/2024 Active lidocaine 4 % patch Place 1 patch onto the skin daily. Remove & Discard patch within 12 hours or as directed by MD 30 patch 09/11/2024 Active naproxen (NAPROSYN) 500 MG tablet Take 1 tablet (500 mg total) by mouth 2 (two) times daily with meals. 20 tablet 09/11/2024 Active lidocaine viscous (XYLOCAINE) 2 % solution Take 5 mLs by mouth 4 (four) times daily as needed for Pain. 100 mL 12/01/2024 Active albuterol sulfate HFA 108 (90 Base) MCG/ACT inhaler Inhale 2 puffs into the lungs every 6 (six) hours as needed for Wheezing. 8 g 12/31/2024 Active Encounters Date Type Department Care Team Description 12/30/2024 11:53 PM CDT - 12/31/2024 1:11 AM CDT Emergency [facility] [place] [address] Shanel Rodriguez PA Cough Discharge Disposition: Home or Self Care (Routine Discharge) 12/30/2024 Travel 12/01/2024 1:07 AM CDT - 12/01/2024 1:08 AM CDT Emergency [facility] [place] [address] Shanel Rodriguez PA Dental Pain Discharge Disposition: Home or Self Care (Routine Discharge) 12/01/2024 Travel from Last 3 Months Social History [...] Sex Assigned at Female 06/19/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 Legal Sex Female 4:36 PM CDT Gender Identity Not on file Sexual Orientation Not on file Last Filed Vital Signs Vital Sign Reading Time Taken Comments Blood Pressure 123/81 12/31/2024 12:07 AM CDT Pulse 78 12/31/2024 12:07 AM CDT Temperature 36.7 C (98 F) 12/30/2024 11:43 PM CDT Respiratory Rate 20 12/31/2024 12:07 AM CDT Oxygen Saturation 99% 12/31/2024 12:07 AM CDT Inhaled Oxygen Concentration - - Weight 63.5 kg (140 lb) 12/30/2024 11:43 PM CDT Height 154.9 cm (5' 1) 12/30/2024 11:43 PM CDT Body Mass Index 26.45 12/30/2024 11:43 PM CDT Plan of Treatment Health Maintenance Due [...] Years) (1 of 2 - PCV) 2016 HPV Vaccines (1 - 3-dose SCD M series) 2024 COVID-19 Vaccine (3 - 2024-2 6 season) 2024 08/16/2021, 07/19/2021 Influenza Adult (#1) 2025 DTaP, Tdap and Td Vaccines ( 3 - Td or Tdap) 08/13/2032 08/13/2022, 07/07/2020 Hepatitis A Vaccines Aged Out No long er eligible based on patient's age to complete [...] Priority Date/Time Associated Diagnosis Comments XR CHEST PORTABLE STAT 12/30/2024 11: 58 PM CDT from Last 3 Months Results * XR CHEST PORTABLE (12/30/2024 11:58 PM CDT) Anatomical Region Laterality Modality Chest Radiographic Kaitlynn ging 12/30/2024 11:5 9 PM CDT Impressions 12/31/2024 12:00 AM CDT IMPRESSION: 1. No acute cardiopulmonary process. Referred By: Interpreted By: Ishan Schneider MD, 12/30/2024 11:59 PM Narrative 12/31/2024 12:00 AM CDT [address] [address] INDICATION: cough COMPARISON: None TECHNIQUE: Single AP image of the chest FINDINGS: No focal airspace consolidation. No pleural effusion or pneumothorax. Cardiomediastinal silhouette and pulmonary vasculature are within normal limits. No acute osseous abnormality. Procedure Note Ishan Schneider DO - 12/31/2024 [address], [place] [address] INDICATION: cough COMPARISON: None TECHNIQUE: Single AP image of the chest FINDINGS: No focal airspace consolidation. No pleural effusion or pneumothorax.Cardiomediastinal silhouette and pulmonary vasculature are within normallimits. No acute osseous abnormality. IMPRESSION: 1. No acute cardiopulmonary process. Referred By: Interpreted By: Ishan Schneider MD, 12/30/2024 11:59 PM [facility] Final Result from Last 3 Months Insurance [place] [employer] Care Teams Dimension Warehouse Supervisor Relationship Specialty Start Date End Date None, ProviderMD PCP - General UNKNOWN PHYSICIAN SPECIALTY 09/21/24
--- OUTSIDE RECORDS SUMMARY | 2025-02-21 17:02 | XMS_ITS | Clinical Summary ---
Author Organization [facility] Address [address] [place] [address] Phone Care Team Providers Care Psychiatric Lpn Name Role Phone Provider, None Primary Care Provider Unavailabl e Allergies Active Allergy Reactions Criticality Noted Date Comments Sulfa Antibiotics Hives 12/04/2017 Medications Meloxicam 15 MG Tablet Take 1 Tab by mouth daily. 90 Tab 12/05/2017 Active ondansetron (ZOFRAN-ODT) 4 MG TABLET DISPERSIBLE Take 1 Tab by mouth every 6 hours as needed for Nausea - 1st line. 5 Tab 05/07/2020 Active TRAZODONE HCL PO Take 150 mg by mouth nightly. Active Social History Tobacco Use Types Packs/Day Years Used Date Smoking Tobacco: Every Day Cigarettes Smokeless Tobacco: Never Alcohol Use Standard Drinks/Week Comments No 0 (1 standard drink = 0.6 oz pur e alcohol) Comments No Sex and Gender Information Value Date Recorded Sex Assigned at Not on file Legal Sex Female 10:30 PM CDT Gender Identity Not on file Sexual Orientation Not on file Last Filed Vital Signs Vital Sign Reading Time Taken Comments Blood Pressure 122/76 07/09/2021 8:36 PM CDT Pulse 88 07/09/2021 8:36 PM CDT Temperature 36.6 C (97.8 F) 07/09/2021 6:30 PM CDT Respiratory Rate 20 07/09/2021 8:36 PM CDT Oxygen Saturation 100% 07/09/2021 8:36 PM CDT Inhaled Oxygen Concentration - - Weight 61.2 kg (135 lb) 07/09/2021 6:30 PM CDT Height 152.4 cm (5') 07/09/2021 6:30 PM CDT Body Mass Index 26.37 07/09/2021 6:30 PM CDT Plan of Treatment Health Maintenance Due Date Last Done Comments Hepatitis C Virus (HCV) Screening 1997 TdaP Immunization 1997 Hepatitis B Immunization (1 of 3 - 19+ 3-dose series) 2016 Human Papillomavirus (HPV) Immunization (1 - 3-dose SCDM series) 2024 Influenza Immunization (#1) 2024 SARS-COV-2 Immunization (3 - 2024- season) 2024 08/16/2021, 07/19/2021 Respiratory Syncytial Virus (RSV) Immunization (Adult) (1 - 1-dose 75+ series) 2072 Meningococcal Immunization (ACWY) Aged Out No longer eligible b ased on patient's age to complete this topic Pneumococcal Immunization Combined Aged Out No longer eligible b ased on patient's age to complete this topic Rotavirus Immunization Aged Out No lo nger eligible based on patient's age to complete this topic Insurance MEDICAID [place] Care Teams Psychiatric Lpn Relationship Specialty Start Date End Date Provider, None [place] PCP - General 12/04/17
--- OUTSIDE RECORDS SUMMARY | 2025-02-21 17:02 | XMS_ITS | Clinical Summary ---
Author Organization [facility] Address [address] [facility] [place] [address] Care Team Providers Care Energy Conservation Director Name Role Phone Macario Lopez MD Primary Care Provider [phone] Source Comments [facility],non-owned Affiliates and Associated Physician Practices is amultiple site organization consisting of ambulatory clinics and hospital sitesin [place], [place], [place] and [place]. This disclosure is being madepursuant to the Care Everywhere program and may not contain all information available regarding this patient. 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 Gender Identity Not on file Sexual Orientation [...] 10:01 AM CDT Height 154.9 cm (5' 1) 09/18/2023 10:01 AM CDT Body Mass Index 26.94 09/18/2023 10:01 AM CDT Plan of Treatment Health Maintenance Due Date Last Done Comments HEPATITIS C SCREENING 04/10/2015 DTAP/TDAP/TD VACCINES (1 - Tdap) 2016 HEPATITIS B VACCINE (1 of 3 - 19+ 3-dose series) 2016 PNEUMOCOCCAL VACCINE (1 of 2 - PCV) 2016 PAP SMEAR 2018 HPV VACCINE (1 - 3-dose SCDM series) 2024 DEPRESSION SCREENING 04/28/2024 COVID-19 VACCINE (3 - 2024-2 6 season) 2024 08/16/2021, 07/19/2021 INFLUENZA VACCINE (#1) 2024 ZOSTER VACCINE (1 of 2) 2047 HIV SCREENING Completed 06/04/2022 HIB VACCINE Aged Out No longer eligi ble based on patient's age to complete this topic MENINGOCOCCAL (Group B) VACCINE SHARED DECISION-MAKING Aged Out No longer eligible based on patient's age to complete this topic MENINGOCOCCAL GROUPS A/C/Y/W VACCINE Aged Out No longer eligible b ased on patient's age to complete this topic Insurance [facility] Care Teams Energy Conservation Director Relationship Specialty Start Date End Date Macario Lopez MD [address] [place] [id number] PCP - General Family Medicine 09/18/23
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
--- OUTSIDE RECORDS SUMMARY | 2025-02-21 17:06 | XMS_ITS | Data Portability ---
Author Organization [place] - 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 we will see how she does with time. She voiced understanding and agrees with the above plan her wheel inspector was with her today as well for [...] W/C pt. Please contact to schedule 2023 DEVYN [place], [address], [place], [address], 07:15:44 Procedures None recorded. Surgeries None recorded. Imaging XR, ankle 2023 024 [email or web address] [facility] [place], [address], [place], [address], 12:34:23 XR, ankle 2023 024 [facility] [place], [address], [place], [address], 12:14:44 XR, ankle 2023 024 [facility] [place], [address], [place], [address], 12:46:41 Medication Orders hydrocodone 5 mg-acetamin ophen 325 mg tablet 2023 024 [id number], [address], [place], [place], [id number], 12:54:25 Patient TargetsNo targets recorded. Patient Instructions Encounter Date Encounter Id Patient Instructions Last Modified By Organization Details Last Modified Time 09/22/2024 [id number] PT WITH ABD WALL PAIN . RECOMMEND A BODY BRACE . SX ARE MUSCULO SKELETAL IN ORIGIN . [email or web address] Not available 09/22/2024 15:53:18 Reason for Referral Physical Therapist Referral for [...] No observ ation record ed. [facility] [place] [address], [place], [address], 10/10/2023 12:46:40 11/03/19 24 XR, ankle No observ ation record ed. [facility] [place] [address], [place], [address], 11/03/2023 11:33:24 11/24/19 24 XR, ankle No observ ation record ed. [facility] [place] [address], [place], [address], 11/24/2023 12:25:08 Result Notes None recorded. Problems Name Problem SNOMED Code Status Onset Date Resolution Date Notes Provider Name and Address Organization Details Recorded Time Numbness of hand 701634619 Active 2020 Left Not Available [facility] 3 22:43:11 Numbness of finger 514957998 Active 2020 Not Available [facility] 3 22:43:11 Pain of left ankle joint 4719056197550 9103 Active 2023 Tracey Farrell, INS[employer]ANCE MARKET[employer] REP null, [place] [facility] [place] [facility] 4 12:29:38 Closed fracture of lateral malleolus of left fibula 9122278727595 9109 Active [address] [facility] [place], [place] [address] [address], [place], [address] , [facility] Topic [facility] 4 12:51:58 Epigastric pain 19642048 Active 2024 Shakira Bryant MD [address] [facility] [place], [address], [place], [address] , [facility] 5 15:07:48 Problem Notes None recorded. Procedures Surgical History Date Name Laterality Status Provider Name and Address Organization Details Recorded Time PIPEMAN Surgery completed Not Available [facility] 06/26/2022 22:42:26 Knee completed Not Available [facility] 04/2022 22:42:26 procedure on femur completed Tracey Farrell CNA [facility] 10/03/2023 12:28:16 procedure on femur completed Tracey Farrell INSURANCE MARKET[employer] REP [facility] 10/03/2023 12:28:29 Imaging Results None recorded. Procedure Notes None recorded. Medical Equipment None Reported. Allergies Allergen ID Allergen Name Allergen Category Reaction Reaction Severity Criticality Documentation Date Start Date Code Code System Note Provider Name and Address Organization Details Recorded Time 10820 Substance with sulfonami de structure and antibacte rial mechanism of action (substanc e) medicatio n hives severe Not available 06/26/2022 34636 8003 SNOMED Not Available [facility] 22:44:40 Medications Name Sig Start Date Stop [...] MOUTH EVERY 8 HOURS FOR 7 DAYS 09/22 completed Not Available Not Available Not Available trazodone 50 mg tablet TAKE 1 TABLET BY MOUTH EVERY DAY 09/22 completed Not Available Not Available Not Available azithromyci n 250 mg tablet 10/02 [...] Not Available clindamycin HCl 150 mg capsule 09/22 completed Not Available Not Available Not Available penicillin [...] AFFECTED AREA TWICE DAILY FOR 7 DAYS 05/28 /2025 completed Not Available Not Available Not Available amoxicillin 875 mg tablet TAKE 1 [...] completed Not Available Not Available Not Available Augmentin 500 mg-125 mg tablet Take 1 tablet every 12 hours by oral route. active Not Available Not Available No t Available amoxicillin 875 mg-potassiu m clavulanate 125 [...] TAKE 1 TABLET BY MOUTH EVERY DAY 09/22 completed Not Available Not Available Not Available Vitals Date Recorded Body height Body mass index (BMI) Body weight Heart rate Oxygen saturation Oxygen saturation in Arterial blood by Pulse oximetry Systolic And Diastolic Provider Name and Address Organization Details Last Updated DateTime 5 152.4 cm 28.7 kg/m2 78281.0 8 g 103 /min 98 % 98 % 116/66 mm[Hg] CHARLY Muñoz [place] [facility] 15:07:36 Date Recorded Body height Body mass index (BMI) Body weight Provider Name and Address Organization Details Last Updated DateTime 10/03/2023 152.4 cm 28.7 kg/m2 99161.08 g Tracey Farrell INSURANCE MARKET[employer] RE[email or web address] [facility] [employer] 10/03/2023 12:21:58 Date Recorded Body height Body mass index (BMI) Body weight Provider Name and Address Organization Details Last Updated DateTime 10/10/2023 152.4 cm 28.7 kg/m2 29795.08 [email or web address] [email or web address] [facility] [employer] 10/10/2023 12:23:10 Date Recorded Body height Body mass index (BMI) Body weight Provider Name and Address Organization Details Last Updated DateTime 11/03/2023 152.4 cm 27.5 kg/m2 44181.52 cydney Farrell [email or web address] [email or web address] [facility] [employer] 11/03/2023 11:01:35 Date Recorded Body height Body mass index (BMI) Body weight Provider Name and Address Organization Details Last Updated DateTime 11/24/2023 152.4 cm 26.8 kg/m2 48261.15 cydney Farrell INSURANCE MARKET[employer] REP [email or web address] [facility] [employer] 11/24/2023 12:01:57 Social History Question Answer Notes LastModified by Organizat ion Details LastModified Time Tobacco Smoking Status Current Every Day Smoker Not Available [facility] 06/26/2022 22:42:09 Do You Have An Advance Directive? No [id number] Information not available 06/26/2022 What Is Your Level Of Caffeine Consumption? Heavy MIGRATION.[id number] 026 Information not available 06/26/2022 How Much Tobacco Do You Chew? None MIGRATION.[id number] 026 Information not available 06/26/2022 In The 14 Days Before Symptom Onset, Have You Had Close Contact With A Laboratory-confirm ed COVID-19 While That Case Was Ill? No [id number].[id number] 026 Information not available 06/26/2022 In The 14 Days Before Symptom Onset, Have You Had Close Contact With A Person Who Is Under Investigation For COVID-19 While That Person Was Ill? No [id number].[id number] 026 Information not available 06/26/2022 What Type Of Diet Are You Following? REGULAR MIGRATION.4216648 026 Information not available 06/26/2022 Which Illicit Or Recreational Drugs Have You Used? None MIGRATION.1346401 026 Information not available 06/26/2022 Are There Any Guns Present In Your Home? Yes MIGRATION.7506476 026 Information not available 06/26/2022 What Was The Date Of Your Most Recent Tobacco Screening? 10/10/2020 MIGRATION.[id number] 026 Information not available 06/26/2022 How Much Tobacco Do You Smoke? 0.5 PPD MIGRATION.4754719 026 Information not available 06/26/2022 Do You Use Sunscreen Routinely? No MIGRATION.2895180 026 Information not available 06/26/2022 How Many Years Have You Smoked Tobacco? 10 [email or web address] Information not available 10/03/2023 Sex: Female Functional Status Question Answer Note LastModified by Organizat ion Details LastModified Time What is your level of alcohol consumption? None MIGRATION.4274042 026 Information not available 06/26/2022 Do you or have you ever used smokeless tobacco? Never used smokeless tobacco MIGRATION.2588211 026 Information not available 06/26/2022 Do you or have you ever used e-cigarettes or vape? Never used electronic cigarettes MIGRATION.9113898 026 Information not available 06/26/2022 What is your exercise level? None MIGRATION.4328220 026 Information not available 06/26/2022 Mental Status None recorded. Family History Relationship Description Onset Age of this Age Resolved Age Notes LastModified by Organization Details LastModified Time Paternal Grandmother Diabetes mellitus [id number].117 [id number] Not available 06/26/2022 22:42:27 Father Congestive heart failure MIGRATION.741 [id number] Not available 06/26/2022 22:42:27 Medical History Condition Response NERVE DISEASE N BLINDNESS N RHEUMATIC FEVER N KIDNEY STONES N BLADDER PROBLEMS N MRSA N OTHER # 1 N POLIO N LUNG DISEASE/DISORDER N RADIATION / CHEMOTHERAPY N COPD N Other # 2 N BLOOD DISEASES N SURGERY N EAR OR HEARING PROBLEMS N MUMPS N BOWEL PROBLEMS N DEPRESSION (INCLUDING POST ) N STROKE/TIA N ULCERS N BENIGN PROSTATIC HYPERPLASIA N MEASLES N MYOCARDIAL INFARCTION N OBESITY N GERD/NAUSEA N ANEURYSM N URINARY/BLADDER/KIDNEY PROBLEMS N CORONARY ARTERY DISEASE (CAD) N ADDICTION CONCERNS N ENDOMETRIOSIS N Impotence N USE OF BLOOD THINNERS N SKIN [...] APNEA N CHICKENPOX N INFECTIOUS DISEASE N HEART ARRHYTHMIA N PROSTATE N INSOMNIA N HIGH CHOLESTEROL / HYPERLIPIDEMIA N HYPERTHYROIDISM N EYE PROBLEMS N NEUROLOGICAL PROBLEMS N EDEMA N CHRONIC PAIN SYNDROME N HYPOTHYROIDISM N CAROTID BLOCKAGE N CONSTIPATION N BACK / NECK PROBLEMS N HAVE YOU BEEN HOSPITALIZED OR SEEN IN [facility] IN THE PAST YEAR ? Y ATHEROSCLEROSIS N BREAST PROBLEMS N DIALYSIS N ECZEMA N OSTEOPOROSIS N ARTHRITIS N APPENDICITIS N DIABETES, TYPE N BAD TEETH N ENT N HEARTBURN / REFLUX N AUTISM SPECTRUM DISORDER (ASD) N HEPATITIS / LIVER DISEASE N GOUT N SLEEP DISORDER N ALZHEIMER'S DISEASE N Brain Problems N HERPES N DEMENTIA N HEADACHES/MIGRAINES N SEIZURES/EPILEPSY N VASCULAR DISEASE N PACEMAKER N Blood Disorder N DIZZINESS N HEART DISEASE/HEART PROBLEMS N KIDNEY DISEASE N MULTIPLE SCLEROSIS N CARDIAC ARRHYTHMIA N CANCER: SPECIFY N ATRIAL FIBRILLATION N Gall Stones N PULMONARY EMBOLISM N AUTOIMMUNE DISEASE N Gynecological HistoryNo gynecological history recorded. Obstetrics History GPAL:G 0 P 0 0 0 0 Past Encounters Encounter ID Performer Location Encounter Start Date Encounter Closed Date Diagnosis/Indication Diagnosis SNOMED-CT Code Diagnosis ICD10 Code Diagnosis IMO Codes Diagnosis Note [id number] [facility] [place] [place] [facility] Rian blanco [address] [place] [address] [place] [address] 07/26/2020 00:00:00 07/26/2020 16:13:[id number] [facility] Internal Med Rian earline [address] [place] [address] [place] [address] 08/09/2020 00:00:00 08/09/2020 16:23:07 [id number] Olvin Roy MD [address] [address] 08/11/2020 00:00:00 08/14/2020 16:31:10 [id number] Olvin Roy MD [address] [address] 09/07/2020 00:00:00 09/07/2020 14:39:50 [id number] Olvin Roy MD [facility] [address] [address] 10/11/2020 00:00:00 10/11/2020 15:53:33 [id number] Olvin Roy MD [facility] [address] [address] 12/28/2020 00:00:00 12/28/2020 15:03:22 [id number] Olvin Roy MD [facility] [address] [place] [address] [address] 01/24/2021 00:00:00 01/24/2021 16:33:47 [id number] Olvin Roy MD [facility] [address] [place] [address] [address] 02/05/2021 00:00:00 02/05/2021 15:00:50 [id number] Izzy Castro NP [facility] [address] [place] [address] [address] 03/29/2021 00:00:00 03/29/2021 11:05:41 [id number] [facility] [address] [place] [address] [address] 05/24/2021 00:00:00 05/24/2021 15:38:51 [id number] Izzy Castro NP [facility] [address] [place] [address] [address] 08/22/2021 00:00:00 08/22/2021 18:22:56 [id number] Izzy Castro NP [facility] [address] [place] [address] [address] 10/04/2021 00:00:00 10/04/2021 16:38:49 [id number] Izzy Castro NP [facility] [address] [address] 10/31/2021 00:00:00 10/31/2021 12:36:58 [id number] Izzy Castro NP [facility] [address] [address] 12/10/2021 00:00:00 12/10/2021 15:04:21 [id number] Izzy Castro NP [facility] [address] [address] 01/10/2022 00:00:00 01/10/2022 19:10:[id number] [facility] [place] [address] [place] [address] 10/03/2023 12:09:46 10/03/2023 12:49:17 Pain of left ankle joint 7914812875 2773265 M25.572 Closed fra cture of lateral malleolus of left fibula 1812810366 2427449 S82.62XA [id number] Issac Gaviria MD [facility] [place] [address] [place] [address] 10/10/2023 12:21:44 10/10/2023 12:43:38 Closed fracture of lateral malleolus of left fibula 8909412292 6185876 S82.62XD Pain of le ft ankle joint 7914181140 8938781 M25.[id number] [facility] [place] [place] [facility] [place] [address] [place] [address] 11/03/2023 10:57:43 11/03/2023 11:40:38 Closed fracture of lateral malleolus of left fibula 8881259677 8664067 S82.62XD Pain of le ft ankle joint 3269014931 1805773 M25.445 [id number] Izzy Castro NP [facility] [address] [address] 11/25/2023 14:09:44 11/25/2023 16:17:[id number] [facility] Ortho [place] [address] [place] [address] 11/24/2023 11:55:33 11/24/2023 12:34:23 Closed fracture of lateral malleolus of left fibula 8996895388 2398787 S82.62XD Pain of le ft ankle joint 2667614746 3857077 M25.[id number] [facility] [place] General Surgery [address] [facility] [place] [address] 09/22/2024 15:04:36 09/22/2024 15:31:38 Health Concerns Section Related Observation LastModified by Organization Detai ls LastModified Time None Recorded Concern Status LastModified by Organization Details LastModified Time None Recorded Advance Directives Directive N: Payers Insurance Date Sequence Insurance Name Policy Number Policy Waddell Covered Member ID Waddell Member ID Guarantor Name 11/24/2023 [employer] Ariana Cynthia Guzmancy Cynthia 10/20/2024 1 [facility] (MEDICAID HMO) [id number] Arianarohit Marie [id number] Ariana Marie 03/14/2024 [employer] Ariana Cynthia Guzmancy Marie Notes Date Note Type Note Provider Name and Address Organization Details Recorded Time 10/03/2023 text/html The patient is a 28-year-old female who suffered an injury to her left ankle at work. 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 She felt a sudden pop in the ankle he would immediate pain and swelling and ecchymosis the forearm soon after localized mostly over the lateral ankle. She went to the emergency room at [facility] had x-rays performed. X-rays demonstrate a closed [...] with the patient. JARRETT Jaime [address], [address], [place], [address], [employer] 10/03/2023 12:56:55 10/10/2023 text/html Patient returns for [...] x-rays and recheck. JARRETT Jaime [address], [address], [place], [address], [employer] 10/10/2023 12:50:03 11/03/2023 text/html patient returns she [...] weight fairly comfortably. JARRETT Jaime [address], [address], [place], [address], [email or web address] [facility] [employer] 11/03/2023 11:33:48 11/24/2023 text/html Patient returns for [...] and recheck. JARRETT Jaime [address], [address], [place], [address], [email or web address] [facility] [employer] 11/24/2023 12:32:48 09/22/2024 text/html ROS as noted in the HPI PT WAS SEEN IN THE OFFICE TODAY FOR GERD . PT DENIES ABD PAIN /N/V. PT DENIES TO PYROSIS . SHE C/O UPPER ABD PAIN . SX ARE INCREASED WITH BEING FULL/ OR EMPTY . 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 SHE EAT A SMALL BREAKFAST AT 8 AM . THEN AFTER 7 PM . SHE REPORTS DJD . Shakira Bryant MD [address] [facility] [place], [address], [place], [address], [place] [facility] 09/22/2024 15:53:24 OBGyn Episode No OBEpisode recorded.
== END 2025-02-21 16:35 | disposition home or self-care (01) ==
PROVIDERS: Emergency Provider Nurse Practitioner; PCP Emergency Medicine
DX: M25.561 Pain in right knee (principal); N80.9 Endometriosis, unspecified; F17.210 Nicotine dependence, cigarettes, uncomplicated
CPT/HCPCS: 99213; G0463